=== PATIENT | female | born 1965 | race Caucasian/White ===

== ENCOUNTER 2023-02-28 10:45 | Outpatient (CLI) | payer MEDICAID, SELFPAY | END 2023-02-28 10:46 | disposition home or self-care (01) | LOC: RAD 10:48 → INJ CL 10:48 | PROVIDERS: Visit Provider Family Medicine | DX: M51.36 Other intervertebral disc degeneration, lumbar region (principal); M54.16 Radiculopathy, lumbar region | CPT/HCPCS: 64483; J1100; Q9966 ==

== ENCOUNTER 2023-05-30 09:42 | Outpatient (CLI) | payer MEDICAID, SELFPAY | END 2023-05-30 09:43 | disposition home or self-care (01) | PROVIDERS: Visit Provider Family Medicine | DX: M54.16 Radiculopathy, lumbar region (principal); M51.36 Other intervertebral disc degeneration, lumbar region | CPT/HCPCS: 64483; J1100; Q9966 ==

== ENCOUNTER 2024-03-05 10:25 | Outpatient (CLI) | payer MEDICAID, SELFPAY | END 2024-03-05 10:26 | disposition home or self-care (01) | LOC: INJ CL 10:27 | PROVIDERS: Visit Provider Family Medicine | DX: M54.16 Radiculopathy, lumbar region (principal); M51.36 Other intervertebral disc degeneration, lumbar region | CPT/HCPCS: 64483; J1100; Q9966 ==

== ENCOUNTER 2024-07-12 13:11 | Outpatient (CLI) | payer SELFPAY | END 2024-07-12 13:12 | disposition home or self-care (01) | LOC: INJ CL 13:12 | PROVIDERS: Visit Provider Family Medicine | DX: M54.16 Radiculopathy, lumbar region (principal) | CPT/HCPCS: 64483; J1100; Q9966 ==

== ENCOUNTER 2025-02-07 10:01 | Outpatient (CLI) | payer BC, SELFPAY ==
--- OUTSIDE RECORDS SUMMARY | 2021-10-07 11:19 | XMS_ITS | Continuity of Care Document ---
Author Organization [facility] sharon Address [address] [place] [phone] Phone Care Team Providers Care Jordan Man Name Role Phone Will Jorje ROD Unavailable Unavailabl e Allergies, Adverse Reactions, Alerts Substance Reaction Status Criticality No Known Allergies Active No Inform ation Medications Medication Instructions Dosage Effective Dates (start - stop) Status Comments tramadol 50 mg tablet take 1 - 2 Tablet by Oral route every 4 - 6 hours max 4/day 1-2 Tablet - Active gabapentin 600 mg tablet take 2 tablet by oral route 3 times every day 1200 MG - Active Procedures Procedure Date OFFICE/OUTPATIENT VISIT, EST OFFICE CONSULTATION Advance Directives Directive Yes / No Effective Date File Name No Information Encounters Encounter Description Practice Location Reason(s) For Visit Diagnoses Date Provider Providers Copied on Encounter [facility], [address] [place] [address], [id number] , [place] tel:[phone] [facility] No Information 2 Will Jorje. [address], [place], [id number] , [place]. tel:[phone] OFFICE/OUTPAT IENT VISIT, EST [facility], [address] [place] [address], [id number] , tel:[phone] [facility] Back Pain (chief complaint) Other intervertebral disc degeneration, thoracic regionRadiculopathy , lumbosacral regionPostlaminecto my syndrome, not elsewhere classifiedLong term (current) use of opiate analgesic 7 Néstor Dillon. [address], [place], [id number] , [place]. tel:[phone] Referring Provider: Royce Hoff [facility] [address] [place], [address]. tel:[phone] OFFICE CONSULTATION [facility], [address] [place], [place], [id number] , [place] tel:[phone] [facility] Back Pain (chief complaint) Other intervertebral disc degeneration, thoracic regionRadiculopathy , lumbosacral regionPostlaminecto my syndrome, not elsewhere classifiedLong term (current) use of opiate analgesic 7 Néstor Dillon. [address], [place], [id number] , [place]. tel:[phone] Referring Provider: Royce Hoff [facility] [address] [place], [address]. tel:[phone] Family History Family Member Type Diagnosis Age At Onset No Information Payers Payer name Insurance type Covered constitution party ID Authoriza tivon(s) [facility] [id number] Social History Type Description Quantity Date Captured Comments Sex Female Smoking Status No Information Chief Complaint And Reason For Visit No Information Reason For Referral Reason For Referral No Information History Of Present Illness Encounter Date Complaint History Of Prese nt Illness Back Pain (comments) Holley is he re for a followup after first consult. She is not currently prescribed opioid medications from [facility] but would like [facility] to take over opioid medication management. Medications provide 80% relief from pain. Stopped Meloxicam d/t SE such as drowsiness and dizziness. She is interested in pursuing right lumbar RFA. She completed PT at [facility] in [place]. She is also interested in completing another thoracic MELISSA. She previously completed a lumbar MELISSA and states no relief from it. She is willing to stop marijuana usage for [facility] to provide opioids. Back Pain Severity level i s 8-9. Duration: chronic. The problem is changing in character. It occurs persistently. Location of pain is middle back and lower back.The patient describes the pain as an ache and burning. Symptoms are aggravated by ascending stairs, bending, descending stairs, lifting, running, sitting, standing and twisting. Symptoms are relieved by exercise, heat, ice, lying down, stretching, rest and walking. Back Pain (comments) Holley is he re for consult regarding her back pain. In 2013 she had a work injury in which she was lifting something heavy and fell backwards. She had back surgery in 2014; helped pain in the first few months, but then came back. Low back is usually the worst pain. Gabapentin helps her sleep at night. Takes 0-2 [place] at night depending on pain level. Currently taking 5-6 Tramadol/day.Interventions tried:-epidural steroid injections: lumbar area- no significant pain relief. thoracic area-one relieved pain, another did not.-Flexerol-no significant pain relief. Back Pain Onset: sudden wi th injury. Severity level is 5-6. Duration: chronic. It occurs persistently. Location of pain is middle back.The patient describes the pain as an ache, burning and spasms. Symptoms are aggravated by ascending stairs, bending, changing positions, descending stairs, lifting, sitting, standing, twisting, all daily activities, lying in certain positions and housework. Symptoms are relieved by heat, ice, lying down, pain meds/drugs, stretching, rest and walking. Functional Status Date Functional Assessmen t No Information Instructions Date Instruction Additional Infor mation No Information Assessments Type Assessment Date No Information Patient Care Teams Name Effective Dates (start - stop) Status Members No Information
--- OUTSIDE RECORDS SUMMARY | 2024-12-27 11:46 | XMS_ITS | Encounter Summary ---
Author Organization [facility] Address [address] [place] [place] [address] Care Team Providers Care Client Relations Representative Name Role Phone Donna Lamas MD Primary Care Provider Unavailab Rosa Isela Brown-Luis Unavailable [phone] Rosa Isela Mae PA-C Unavailable Wilma Carrasco MD Unavailable Lynn Ho MD Unavailable [phone] Reason for Referral * Diagnostic Imaging CT Scan (Routine) - Closed Specialty Diagnoses / Procedures Referred By Contac t Referred To Contact Radiology. Diagnoses Pulmonary nodules Procedures CT Chest w/o Contrast Lynn Ho MD [address] [place] [address] Phone: tel: fax: [facility] [address] [place] [address] Phone: tel: fax: Referral ID Status Reason Start Date Expiration Date Visits Re quested Visits Authorized [id number] Closed 12/27/2024 12/27/2025 1 1 Reason for Visit * Diagnostic Imaging CT Scan (Routine) - Closed Specialty Diagnoses / Procedures Referred By Contac t Referred To Contact Radiology. Diagnoses Pulmonary nodules Procedures CT Chest w/o Contrast Lynn Ho MD [address] [place] [address] Phone: tel: fax: [facility] [address] [place] [address] Phone: tel: fax: Referral ID Status Reason Start Date Expiration Date Visits Re quested Visits Authorized [id number] Closed 12/27/2024 12/27/2025 1 1 Encounter Details Date Type Department Care Team (Latest Contact Info) Description 12/27/2024 11:46 AM CDT - 12/27/2024 11:59 PM CDT Hospital Encounter [facility] [address] [place] [id number] [facility] [address] [place] [address] Pulmonary nodules Discharge Disposition: Home or Self Care Social History Tobacco Use Types Packs/Day Years Used Date Smoking Tobacco: Every Day Cigarettes Smokeless Tobacco: Never Alcohol Use Standard Drinks/Week Comments Never 0 (1 standard drink = 0.6 oz pur e alcohol) PHQ-2 Answer Date Recorded PHQ-2 Score 0 12/16/2024 Food Insecurity Answer Date Recorded Within the past 12 months, d id you worry that your food would run out before you got money to buy more? No 12/16/2024 Within the past 12 months, d id the food you bought just not last and you didn t have money to get more? No 12/16/2024 Housing Stability Answer Date Recorded Do you have housing? (Housin g is defined as stable permanent housing and does not include staying outside in a car, in a tent, in an abandoned building, in an overnight assisted, or couch-surfing.) Yes 12/16/2024 Are you worried about losing your housing? No 12/16/2024 Financial Resource Strain Answer Date R ecorded Within the past 12 months, h ave you or your family members you live with been unable to get utilities (heat, electricity) when it was really needed? No 12/16/2024 Transportation Needs Answer Date Record ed Within the past 12 months, h as lack of transportation kept you from medical appointments, getting your medicines, non-medical meetings or appointments, work, or from getting things that you need? No 12/16/2024 Interpersonal Safety Answer Date Record ed Do you feel physically and e motionally safe where you currently live? Yes 12/16/2024 Within the past 12 months, h ave you been hit, slapped, kicked or otherwise physically hurt by someone? No 12/16/2024 Within the past 12 months, h ave you been humiliated or emotionally abused in other ways by your partner or ex-partner? 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 50 tablet 12/31/2024 HYDROcodone-acet aminophen (NORCO) 5-325 MG tablet Take 1 tablet by mouth. 11/18/2024 12/31/2024 oxyCODONE (ROXICODONE) 5 MG tabletIndication s:Malignant neoplasm of upper-inner quadrant of right breast in female, estrogen receptor positive (H) Take 1-2 tablets (5-10 mg) by mouth every 4 hours as needed for moderate to severe pain. 6 tablet 12/31/2024 01/01/2025 senna-docusate (SENOKOT-S/PERIC OLACE) 8.6-50 MG tabletIndication s:Malignant neoplasm of upper-inner quadrant of right breast in female, estrogen receptor positive (H) Take 1-2 tablets by mouth 2 times daily. 30 tablet 12/31/2024 01/15/2025 documented as of this encounter Plan of Treatment Upcoming Encounters Date Type Department Care Team (Late st Contact Info) Description 03/20/2025 2:30 PM CDT Ancillary Procedure [address] [place] [address] Wilma Carrasco MD [address] [place] [address] documented as of this encounter Procedures Procedure Name Priority Date/Time Associated Diagnosis Comments CT CHEST W/O CONTRAST STAT 12/27/2024 12:04 PM CDT Pulmonary nodules documented in this encounter Results * CT Chest w/o Contrast (12/27/2024 12:04 PM CDT) Anatomical Region Laterality Modality Chest, SUBRAD CT BODY, UMP CT CHEST, RAD CT Computed Tomography 12/27/2024 12:0 4 PM CDT Impressions 12/27/2024 12:19 PM CDT IMPRESSION: 1. Pulmonary nodules measuring up to 8 mm in the right middle lobe are indeterminate in the setting of breast cancer and underlying lung disease. Consider FDG PET/CT however given size less than 1 cm, they may be below PET resolution. 2. Small airway infection/inflammation involving the lingula. 3. Biopsy-proven right breast cancer. No pathologically enlarged thoracic lymph nodes. Narrative 12/27/2024 12:19 PM CDT EXAM: CT CHEST W/O CONTRAST LOCATION: DATE: 12/27/2024 INDICATION: Recently diagnosed right breast cancer. Pulmonary nodule on breast MRI COMPARISON: None. TECHNIQUE: CT chest without IV contrast. Multiplanar reformats were obtained. Dose reduction techniques were used. CONTRAST: None. FINDINGS: LUNGS AND PLEURA: Right middle lobe noncalcified 5 x 8 mm nodule (4/204). 4 x 6 mm right middle lobe medial juxtapleural nodule (image 180). 3 mm right middle lobe nodule (4/158). Adjacent right major fissural nodular thickening (4/163 and 169). Biapical scarring. Paraseptal predominant emphysema. Multiple foci of endobronchial mucous plugging. Lingular peribronchial groundglass, nodular opacities, and volume loss with appearance favoring small airway infection/inflammation. No pleural effusion or pneumothorax. Fat containing left Bochdalek hernia. MEDIASTINUM/AXILLAE: Normal heart size. No pericardial effusion. Normal caliber thoracic aorta. 1.6 cm mass in the medial right breast compatible with biopsy-proven malignancy. No pathologically enlarged thoracic lymph nodes. CORONARY ARTERY CALCIFICATION: None. UPPER ABDOMEN: No actionable findings. MUSCULOSKELETAL: Skeletal degenerative changes. No significant osseous abnormality. Procedure Note Ryan Morley MD - 12/27/2024 EXAM: CT CHEST W/O CONTRAST LOCATION: DATE: 12/27/2024 INDICATION: Recently diagnosed right breast cancer. Pulmonary nodule onbreast MRI COMPARISON: None. TECHNIQUE: CT chest without IV contrast. Multiplanar reformats wereobtained. Dose reduction techniques were used. CONTRAST: None. FINDINGS: LUNGS AND PLEURA: Right middle lobe noncalcified 5 x 8 mm nodule (4/204).4 x 6 mm right middle lobe medial juxtapleural nodule (image 180). 3 mmright middle lobe nodule (4/158). Adjacent right major fissural nodularthickening (4/163 and 169). Biapical scarring. Paraseptal predominant emphysema. Multiple foci ofendobronchial mucous plugging. Lingular peribronchial groundglass, nodularopacities, and volume loss with appearance favoring small airwayinfection/inflammation. No pleural effusion or pneumothorax. Fat containing left Bochdalekhernia. MEDIASTINUM/AXILLAE: Normal heart size. No pericardial effusion. Normalcaliber thoracic aorta. 1.6 cm mass in the medial right breast compatible with biopsy-provenmalignancy. No pathologically enlarged thoracic lymph nodes. CORONARY ARTERY CALCIFICATION: None. UPPER ABDOMEN: No actionable findings. MUSCULOSKELETAL: Skeletal degenerative changes. No significant osseousabnormality. IMPRESSION: 1. Pulmonary nodules measuring up to 8 mm in the right middle lobe areindeterminate in the setting of breast cancer and underlying lung disease.Consider FDG PET/CT however given size less than 1 cm, they may be belowPET resolution. 2. Small airway infection/inflammation involving the lingula. 3. Biopsy-proven right breast cancer. No pathologically enlarged thoraciclymph nodes. us Lynn Ho MD IMG CT ORDERABLES Final Resul t documented in this encounter Visit Diagnoses Diagnosis Pulmonary nodules Other nonspecific abnormal finding of lung field documented in this encounter Care Teams Client Relations Representative Relationship Specialty Start Date End Date Donna Lamas MD PCP - General Family Practice 01/25/12 Rosa Isela Mae PA-C [address] [address] Physician Seasonal Retail Merchandiser contact lens blocker and cutter 10/28/24 Rosa Isela Mae PA-C [address] [id number] Assigned OBGYN Provider 11/10/24 Wilma Carrasco MD [address] [place] [address] Physician Hematology & Oncology 11/27/24 Lynn Ho MD [address] [place] [address] Assigned Surgical Provider 12/11/24 documented as of this encounter
--- OUTSIDE RECORDS SUMMARY | 2024-12-30 09:58 | XMS_ITS | Encounter Summary ---
Author Organization [place] Address [address] [facility] [place] [address] Care Team Providers Care Tankage Supervisor Name Role Phone Donna Lamas MD Primary Care Provider Unavailab Rosa Isela Brown PA-C Unavailable [phone] Rosa Isela Mae PA-C Unavailable [phone] Wilma Carrasco MD Unavailable [phone] Lynn Ho MD Unavailable [phone] Reason for Referral * Diagnostic Imaging Ultrasound (Routine) - Pending Review Specialty Diagnoses / Procedures Referred By Armida hernandez Referred To Contact Radiology. Diagnoses Breast cancer, stage 1, estrogen receptor positive, right (H) Procedures US Breast Localizer Placement 1st Lesion Right Lynn Ho MD [address] [place] [address] Phone: tel: fax: Referral ID Status Reason Start Date Expiration Date V isits Requested Visits Authorized [id number] Pending Review 11/27/2024 11/27/2025 1 1 Reason for Visit * Diagnostic Imaging Ultrasound (Routine) - Pending Review Specialty Diagnoses / Procedures Referred By Armida hernandez Referred To Contact Radiology. Diagnoses Breast cancer, stage 1, estrogen receptor positive, right (H) Procedures US Breast Localizer Placement 1st Lesion Right Lynn Ho MD [address] [place] [address] Phone: tel: fax: Referral ID Status Reason Start Date Expiration Date V isits Requested Visits Authorized [id number] Pending Review 11/27/2024 11/27/2025 1 1 Encounter Details Date Type Department Care Team (Latest Contact Info) Description 12/30/2024 9:58 AM CDT Hospital Encounter [facility] [address] [place] [phone] [facility] [address] [place] [address] Breast cancer, stage 1, estrogen receptor positive, right (H) Discharge Disposition: Home or Self Care Social [...] Answer Date Recorded Do you have housing? (Ratnain g is defined as stable permanent housing and does not include staying outside in a car, in a tent, in an abandoned building, in an overnight long-term, or couch-surfing.) Yes 12/16/2024 Are you worried [...] motionally safe where you currently live? Yes 12/31/2024 Within the past 12 months, h ave you been hit, slapped, kicked or otherwise physically hurt by someone? No 12/31/2024 Within the past 12 months, h ave you been humiliated or emotionally abused in other ways by your partner or ex-partner? 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 Gender Identity Not on file Sexual Orientation [...] Description 03/20/2025 2:30 PM CDT Ancillary Procedure [address] [place] [address] Wilma Carrasco MD [address] [place] [address] documented as of this encounter Procedures Procedure Name Priority Date/Time Associated Diagnosis Comments US BREAST LOCALIZER PLACEMENT 1ST LESION RIGHT Routine 12/30/2024 10:41 AM CDT Breast cancer, stage 1, estrogen receptor positive, right (H) documented in this encounter Results * US Breast Localizer Placement 1st Lesion Right (12/30/2024 10:41 AM CDT) Anatomical Region Laterality Modality Breast Right Ultrasound Impressions 12/30/2024 10:50 AM CDT IMPRESSION: Successful placement of a localizer for operative guidance. ELYSIA ZACARIAS MD Narrative 12/30/2024 10:50 AM CDT RIGHT BREAST LOCALIZER PLACEMENT; POST LOCALIZER PLACEMENT RIGHT DIGITAL MAMMOGRAM; 12/30/2024 10:41 AM HISTORY: Right breast cancer. COMPARISON: Prior mammograms and ultrasound in October 2024. PROCEDURE: Informed consent was obtained prior to the procedure. The skin overlying the target lesion was marked, sterilized and anesthetized using approximately 3 cc 1% lidocaine. Using continuous ultrasound guidance, the localizer was deployed. Adequate placement was confirmed with imaging. There were no complications and no significant blood loss. Post procedure mammogram confirms satisfactory positioning of the localizer. The images were annotated and provided to the surgeon. Localizer ID: [id number] Procedure Note Elysia Zacarias MD - 12/30/2024 RIGHT BREAST LOCALIZER PLACEMENT; POST LOCALIZER PLACEMENT RIGHT DIGITAL MAMMOGRAM; 12/30/2024 10:41 AM HISTORY: Right breast cancer. COMPARISON: Prior mammograms and ultrasound in October 2024. PROCEDURE: Informed consent was obtained prior to the procedure. The skin overlying the target lesion was marked, sterilized and anesthetized using approximately 3 cc 1% lidocaine. Using continuous ultrasound guidance, the localizer was deployed. Adequate placement was confirmed with imaging. There were no complications and no significant blood loss. Post procedure mammogram confirms satisfactory positioning of the localizer. The images were annotated and provided to the surgeon. Localizer ID: [id number] IMPRESSION: Successful placement of a localizer for operative guidance. ELYSIA ZACARIAS MD us Lynn Ho MD IMG US ORDERABLES Final Resul t documented in this encounter Visit Diagnoses Diagnosis Breast cancer, stage 1, estrogen receptor positive, right (H) documented in this encounter Administered Medications Inactive Administered Medications - up to 3 most recent administrations Medication Order MAR Action Action Date Dose Rate Site lidocaine 1 % 5 mL 5 mL, Subcutaneous, ONCE, On Mon12/30/24 at 1000, For 1 doseIndications:Breast cancer, stage 1, estrogen receptor positive, right (H) $Given 12/30/2024 10:23 AM CDT 5 mLs documented in this encounter Care Teams Tankage Supervisor Relationship Specialty Start Date End Date Donna Lamas MD PCP - General Family Practice 01/25/12 Rosa Isela Mae PA-C [address] [facility] [address] [place] [address] Physician Emergency Veterinary Assistant tap out operator 10/28/24 Rosa Isela Mae PA-C [address] [facility] [address] [place] [address] Assigned OBGYN Provider 11/10/24 Wilma Carrasco MD [address] [place], [place] [address] Physician Hematology & Oncology 11/27/24 Lynn Ho MD [address] [place], [place] [id number] Assigned Surgical Provider 12/11/24 documented as of this encounter
--- OUTSIDE RECORDS SUMMARY | 2024-12-30 09:59 | XMS_ITS | Encounter Summary ---
Author Organization [place] Address [address] [facility] [place] [address] Care Team Providers Care Property Investor Name Role Phone Donna Lamas MD Primary Care Provider Unavailab Rosa Isela Brown PA-C Unavailable [phone] Rosa Isela Mae PA-C Unavailable [phone] Wilma Carrasco MD Unavailable [phone] Lynn Ho MD Unavailable [phone] Reason for Referral * Diagnostic Imaging Mammo (Routine) - Pending Review Specialty Diagnoses / Procedures Referred By Contac t Referred To Contact Radiology. Diagnoses Breast cancer, stage 1, estrogen receptor positive, right (H) Procedures MA Post Procedure Right Lynn Ho MD [address] [place] [address] Phone: tel: fax: Referral ID Status Reason Start Date Expiration Date V isits Requested Visits Authorized [id number] Pending Review 11/27/2024 11/27/2025 1 1 Reason for Visit * Diagnostic Imaging Mammo (Routine) - Pending Review Specialty Diagnoses / Procedures Referred By Contac t Referred To Contact Radiology. Diagnoses Breast cancer, stage 1, estrogen receptor positive, right (H) Procedures MA Post Procedure Right Lynn Ho MD [address] [facility] [place] [address] Phone: tel: fax: Referral ID Status Reason Start Date Expiration Date V isits Requested Visits Authorized [id number] Pending Review 11/27/2024 11/27/2025 1 1 Encounter Details Date Type Department Care Team (Latest Contact Info) Description 12/30/2024 9:59 AM CDT - 12/30/2024 11:59 PM CDT Hospital Encounter [facility] [address], [address] [place] [address] [facility] [address] [place] [address] Breast cancer, stage 1, estrogen receptor positive, [...] in an abandoned building, in an overnight fpc, or couch-surfing.) Yes 12/16/2024 Are you worried [...] on file 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[employer] Gender Identity Not on file Sexual Orientation [...] Description 03/20/2025 2:30 PM CDT Ancillary Procedure [address] [place] [address] Wilma Carrasco MD [address] [place] [address] documented as of this encounter Procedures Procedure Name Priority Date/Time Associated Diagnosis Comments MA POST PROCEDURE RIGHT Routine 12/30/2024 10:48 AM CDT Breast cancer, stage 1, estrogen receptor positive, right (H) documented in this encounter Results * MA Post Procedure Right (12/30/2024 10:48 AM CDT) Anatomical Region Laterality Modality Breast Right Mammography Impressions 12/30/2024 10:50 AM CDT IMPRESSION: Successful [...] and provided to the surgeon. Localizer ID: [id number] Procedure Note Elysia Zacarias MD - 12/30/2024 [...] and provided to the surgeon. Localizer ID: [id number] IMPRESSION: Successful placement of a localizer for operative guidance. ELYSIA ZACARIAS MD us Lynn Ho MD IMG MAMMOGRAPHY ORDERABLES Fi nal Result documented in this encounter Visit Diagnoses Diagnosis Breast cancer, stage 1, estrogen receptor positive, right (H) documented in this encounter Care Teams Property Investor Relationship Specialty Start Date End Date Donna Lamas MD PCP - General Family Practice 01/25/12 Rosa Isela Mae PA-C [address] [facility] [address] [place] [address] Boss gear inspector 10/28/24 Rosa Isela Mae PA-C [address] [facility] [address] [place] [address] Assigned OBGYN Provider 11/10/24 Wilma Carrasco MD [address] [place], [place] [id number] Physician Hematology & Oncology 11/27/24 [facility] [address] [place], [place] [address] Assigned Surgical Provider 12/11/24 documented as of this encounter
--- OUTSIDE RECORDS SUMMARY | 2024-12-31 05:29 | XMS_ITS | Encounter Summary ---
Author Organization [place] Address [address] [facility] [place] [address] Care Team Providers Care Crusher And Blender Operator Name Role Phone Donna Lamas MD Primary Care Provider Unavailab Rosa Isela Brown PA-C Unavailable [phone] Rosa Isela Mae PA-C Unavailable [phone] Wilma Carrasco MD Unavailable Lynn Ho MD Unavailable [phone] Reason for Visit * Auth/Cert Specialty Diagnoses / Procedures Referred By Armida hernandez Referred To Contact Surgery Diagnoses Breast cancer, stage 1, estrogen receptor positive, right (H) Breast cancer, stage 1, estrogen receptor positive, right (H) [C50.911, Z17.0] Procedures WA MASTECTOMY, PARTIAL WA BIOPSY/EXCISION LYMPH NODE OPEN SUPERFICIAL WA BIOPSY/EXCISION LYMPH NODE NEEDLE SUPERFICIAL WA BX/REMV,LYMPH NODE,DEEP CERV WA BX/REMV,LYMPH NODE,DEEP CERV/SCAL WA BX/REMV,LYMPH NODE,DEEP AXILL WA BX/REMV,LYMPH NODE,WATER SYSTEM OPERATOR MAMM WA OPEN BIOPSY/EXCISION INGUINOFEMORAL NODES LUMPECTOMY, BREAST, LOCALIZED USING RADIOFREQUENCY IDENTIFICATION,RIGHT SENTINEL LYMPH NODE BIOPSY [facility] [address] [place] [address] Phone: tel: fax: Referral ID Status Reason Start Date Expiration Date Visits Re quested Visits Authorized [id number] 1 1 Encounter Details Date Type Department Care Team (Latest Contact Info) Description 12/31/2024 5:29 AM CDT - 12/31/2024 12:34 PM CDT Hospital Encounter [facility] PreOP/PostOP [address] [place] [id number] [facility] [address] [place] [address] Malignant neoplasm of upper-inner quadrant of right breast in female, estrogen receptor positive (H) (Primary Dx) Discharge Disposition: Home or Self Care Social [...] in an abandoned building, in an overnight nursing home, or couch-surfing.) Yes 12/16/2024 Are you worried [...] on file 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 Gender Identity Not on file Sexual Orientation Not on file documented as of this encounter Last Filed Vital Signs Vital Sign Reading Time Taken Comments Blood Pressure 112/68 12/31/2024 12:30 PM CDT Pulse 60 12/31/2024 11:53 AM CDT Temperature 36.4 C (97.5 F) 12/31/2024 11:53 AM CDT Respiratory Rate 15 12/31/2024 11:30 AM CDT Oxygen Saturation 96% 12/31/2024 12:30 PM CDT Inhaled Oxygen Concentration - - Weight 58.7 kg (129 lb 6.4 oz) 12/31/2024 5:41 A M CDT Height 170.2 cm (5' 7) 12/31/2024 5:41 AM CDT Body Mass Index 20.27 12/31/2024 5:41 AM CDT documented in this encounter Discharge Instructions * Discharge Instructions* Vero Garcia RN - 12/31/2024 7:07 AM CDT HOME CARE FOLLOWING LUMPECTOMY Jere Baird, Brian Guerra, R. O???Estefany Thompson J. Shaheen APPOINTMENT WITH YOUR SURGEON: All patients are to schedule a post-op appointment with their general surgeon. Once you are home, call the office to schedule the appointment for 2-3 weeks from the date of your surgery. You may needto be seen sooner if you have a drain in place. Appointments to see your general surgeon at any of our locations can be made by calling: #[phone] You will receive a phone call from your surgeon with these results. You will be able to ask questions and receive more in-depth explanation at your post-op appointment. This appointment will also be when you discuss further evaluation, treatment, and referral to oncology and/or radiation oncology if this is necessary. Occasionally special testing must be done on the surgical specimen which may delay the posting of your final pathology report. You may call for your final pathology report after 1p.m. three working days after surgery to check on its status. SUPPORT: Wear a bra for support and comfort for 3-7 days, day and night. DRAIN: If you have a drain in place, you will need a separate appointment with a nurse in the office to have this removed. You will have a form to keep track of the output of your drain. When the output reaches a point where the total for a 24 hour period is less than 30cc???s, you are ready to have the drain removed. At that point you can call the office and talk to the nurse to arrange coming into theoffice to have this done. If you have more than one drain in place, they may not all be removed at the same time, as the outputs can be very different from each. The nurse will help you to manage this and help decide when the remaining drains will be taken out. INCISIONAL CARE: If you have a dressing in place, keep clean and dry for 48 hours; you may replace the gauze if it becomes soiled. After 48 hours you may remove the dressing and shower. Do not submerse incision in water for 1 week. If you have a Dermabond dressing (a type of skin glue), you may shower immediately. Sutures will absorb and do not need to be removed. If present, leave the steri-strips (white paper tapes) in place for 14 days after surgery. If present, leave Dermabond glue in place until it wears/flakes off. You may expect a small amount of drainage from your incision. A lump/ridge under the incision is normal and will gradually resolve. BATHING: You are allowed to bath (shallow water in a tub only) or shower 24-48 hours after your surgery. Mild soap is OK to use near these sites. When bathing, do not allow the incision or drain site to become submersed in water as this may increase the risk of infection. ACTIVITY: Cautiously resume exercise and strenuous activities such as jogging, tennis, aerobics, etc. Also, be careful of stretching activities with operative side for two weeks. If you had a ???sentinel node biopsy?? at the time of your surgery: You have no restrictions in addition to those noted above. If you had an ???axillary node dissection?? at the time of your surgery: You are recommended to restrict the activity of the arm on the side the dissection was done on. This means: no reaching overhead until cleared to do so by your surgeon, no carrying weight on that side greater than a couple pounds, no injections/vaccinations/ blood samples from that side, and no blood pressure measurements on that side. It is also recommended to elevate the arm on pillows several times a day to decrease/minimize swelling, and avoid sleeping on that arm. DIET: No restrictions. Increased fluid intake is recommended. While taking pain medications, increase dietary fiber or add a fiber supplementation like Metamucil or Citrucel to help prevent constipation - a possible side effect of pain medications. DISCOMFORT: Local anesthetic placed at surgery should provide relief for 4-8 hours. Begin taking pain pills before discomfort is severe. Take the pain medication with some food, when possible, to minimize side effects. Intermittent use of ice packs may help during the first 48 hours. Expect gradual improvement. RETURN APPOINTMENT: Schedule a follow-up visit 2-3 weeks post-op. Office CONTACT US IF THE FOLLOWING DEVELOPS: 1. A fever that is above 101?? 2. If there is a large amount of drainage, bleeding, or swelling. 3. Severe pain that is not relieved by your prescription. 4. Drainage that is thick, cloudy, yellow, green or white. 5. Any other questions not answered by ???Frequently Asked Questions?? sheet. FREQUENTLY ASKED QUESTIONS: Q: How should my incision look? A: Normally your incision will appear slightly swollen with light redness directly along the incision itself as it heals. It may feel like a bump or ridge as the healing/scarring happens, and over time (3-4 months) this bump or ridge feeling should slowly go away. In general, clear or pink watery drainage can be normal at first as your incision heals, but should decrease over time. Q: How do I know if my incision is infected? A: Look at your incision for signs of infection, like redness around the incision spreading to surrounding skin, or drainage of cloudy or foul-smelling drainage. If you feel warm, check your temperature to see if you are running a fever. If any of these things occur, please notify the nurse at our office. We may need you to come intothe office for an incision check. Q: How do I take care of my incision? A: If you have a dressing in place - Starting the day after surgery, replace the dressing 1-2 timesa day until there is no further drainage from the incision. At that time, a dressing is no longer needed. Try to minimize tape on the skin if irritation is occurring at the tape sites. If you have significant irritation from tape on the skin, please call the office to discuss other method of dressin g your incision. Small pieces of tape called ???steri-strips?? may be present directly overlying your incision; these may be removed 10 days after surgery unless otherwise specified by your surgeon. If these tapes start to loosen at the ends, you may trim them back until they fall off or are removed. A: If you had ???Dermabond?? tissue glue used as a dressing (this causes your incision to look shiny with a clear covering over it) - This type of dressing wears off with time and does not require more dressings over the top unless it is draining around the glue as it wears off. Do not apply ointments or lotions over the incisions until the glue has completely worn off. Q: There is a piece of tape or a sticky ???lead?? still on my skin. Can I remove this? A: Sometimes the sticky ???leads?? used for monitoring during surgery or for evaluation in the emergency department are not all removed while you are in the hospital. These sometimes have a tab or metal dot on them. You can easily remove these on your own, like taking off a band-aid. If there is agel substance under the ???lead?? , simply wipe/clean it off with a washcloth or paper towel. Q: What can I do to minimize constipation (very hard stools, or lack of stools)? A: Stay well hydrated. Increase your dietary fiber intake or take a fiber supplement -with plenty of water. Walk around frequently. You may consider an ojht-ahp-oassxon stool-softener. Your Pharmacist can assist you with choosing one that is stocked at your pharmacy. Constipation is also one of themost common side effects of pain medication. If you are using pain medication, be pro-active and try to PREVENT problems with constipation by taking the steps above BEFORE constipation becomes a problem. Q: What do I do if I need more pain medications? A: Call the office to receive refills. Be aware that certain pain meds cannot be called into a pharmacy and actually require a paper prescription. A change may be made in your pain med as you progress thru your recovery period or if you have side effects to certain meds. --Pain meds are NOT refilled after 5pm on weekdays, and NOT AT ALL on the weekends, so please look ahead to prevent problems. Q: Why am I having a hard time sleeping now that I am at home? A: Many medications you receive while you are in the hospital can impact your sleep for a number ofdays after your surgery/hospitalization. Decreased level of activity and naps during the day may also make sleeping at night difficult. Try to minimize day-time naps, and get up frequently during theday to walk around your home during your recovery time. Sleep aides may be of some help, but are not recommended for long-term use. Q: I am having some back discomfort. What should I do? A: This may be related to certain positioning that was required for your surgery, extended periods of time in bed, or other changes in your overall activity level. You may try ice, heat, acetaminophen, or ibuprofen to treat this temporarily. Note that many pain medications have acetaminophen in them and would state this on the prescription bottle. Be sure not to exceed the maximum of 4000mg per day of acetaminophen. If the pain you are having does not resolve, is severe, or is a flare of back pain you have had on other occasions prior to surgery, please contact your primary physician for further recommendations or for an appointment to be examined at their office. Q: Why am I having headaches? A: Headaches can be caused by many things: caffeine withdrawal, use of pain meds, dehydration, highblood pressure, lack of sleep, over-activity/exhaustion, flare-up of usual migraine headaches. If you feel this is related to muscle tension (a band-like feeling around the head, or a pressure at thelow-back of the head) you may try ice or heat to this area. You may need to drink more fluids (try electrolyte drink like Gatorade), rest, or take your usual migraine medications. If your headaches do not resolve, worsen, are accompanied by other symptoms, or if your blood pressure is high, please call your primary physician for recommendation and/or examination. Q: I am unable to urinate. What do I do? A: A small percentage of people can have difficulty urinating initially after surgery. This includes being able to urinate only a very small amount at a time and feeling discomfort or pressure in thevery low abdomen. This is called ???urinary retention?? , and is actually an urgent situation. Proceed to your nearest Emergency department for evaluation (not an Urgent Care Center). Sometimes the bladder does not work correctly after certain medications you receive during surgery, or related to certain procedures. You may need to have a catheter placed until your bladder recovers. When planningto go to an Emergency department, it may help to call the ER to let them know you are coming in for this problem after a surgery. This may help you get in quicker to be evaluated. If you have symptoms of a urinary tract infection, please contact your primary physician for the proper evaluation and treatment. If you have other questions, please call the office Monday thru Monday between 8am and 4:30pm to discuss with the nurse or physician assistant property manager. # There is a surgeon ROAD REPAIRER on weekday evenings and over the weekend in case of urgent need only, and may be contacted at the same number. If you are having an emergency, call 911 or proceed to your nearest emergency department. You received Oxycodone 5mg at 10:45am. Next dose of Oxycodone after 2:45pm if needed. You received Tylenol 650mg at 10:45am. Next dose of Tylenol after 2:45pm if needed. Maximum acetaminophen (Tylenol) dose from all sources should not exceed 4 grams (4000 mg) per day. You received Toradol, an IV form of Ibuprofen (Motrin) at 9am. Do not take any Ibuprofen products until 3pm. * Attachments The following attachments cannot be sent through Care Everywhere. * (s) After Anesthesia (Sleep Medicine) (Surinamese) documented in this encounter Medications at Time of Discharge acetaminophen (TYLENOL) 325 MG tabletIndication s:Malignant neoplasm of upper-inner quadrant of right breast in female, estrogen receptor positive (H) Take 2 tablets (650 mg) by mouth every 4 hours as needed for mild pain. 50 tablet 12/31/2024 oxyCODONE (ROXICODONE) 5 MG tabletIndication s:Malignant [...] 12/31/2024 01/15/2025 documented as of this encounter H&P Notes * Lynn Ho MD - 12/31/2024 7:04 AM CDT I have reviewed the surgical (or preoperative) H&P that is linked to this encounter, and examined the patient. There are no significant changes Clinical Conditions Present on Arrival: Clinically Significant Risk Factors Present on Admission Source Note - Marcia Bridges APRN FIRE PILOT - 12/16/2024 4:30 PM CDT Preoperative Evaluation [address] [facility] [id number] Primary Provider: Donna Lamas MD (Inactive) Pre-op Performing Provider: Marcia Bridges APRN CNP Dec 16, 2024 12/16/2024 Surgical Information What procedure is being done? pre op Facility or Hospital where procedure/surgery will be performed: [facility] Who is doing the procedure / surgery? dr ross Date of surgery / procedure: december 31 Time of surgery / procedure: 5 Where do you plan to recover after surgery? at home with family Fax number for surgical facility: Note does not need to be faxed, will be available electronically in [employer]. Assessment & Plan The proposed surgical procedure is considered LOW risk. Preop general physical exam Malignant neoplasm of upper-inner quadrant of right breast in female, estrogen receptor positive (H) Kasie is a 59 year old female with right breast invasive ductal carcinoma, grade 2, ER +, WA +, measuring 2 cm (mammography) at 3:00 and 4 cm from the nipple. A lymph node that was suspicious was biopsied and was benign. Discussed - EKG 12-lead complete w/read - Clinics - CBC with platelets; Future - No identified additional risk factors other than previously addressed Preoperative Medication Instructions Antiplatelet or Anticoagulation Medication Instructions - We reviewed the medication list and the patient is not on an antiplatelet or anticoagulation medications. Additional Medication Instructions - Herbal medications and vitamins: DO NOT TAKE 14 days prior to surgery. - Opioids: Continue without modification. [id number]} - diclofenac (Voltaren): DO NOT TAKE for 3 days for high bleeding risk or PRN use. - ibuprofen (Advil, Motrin): DO NOT TAKE 1 day before surgery. - naproxen (Aleve, Naprosyn): DO NOT TAKE 4 days before surgery. Recommendation Approval given to proceed with proposed procedure, without further diagnostic evaluation. Subjective Kasie is a 59 year old, presenting for the following: Pre-Op Exam (Rt breast) HPI: Kasie is a 59 year old female with right breast invasive ductal carcinoma, grade 2, ER +, WA +, measuring 2 cm (mammography) at 3:00 and 4 cm from the nipple. A lymph node that was suspiciouswas biopsied and was benign. Patient denies any fevers night sweats or chills, patient denies any upper respiratory infections. Patient denies any change to the lump on her breast or note any extra lymph nodes involved, no drainage to her nipple. Reviewed the instructions with pt to be prepared to share her doctor's clinic name and phone number, her medical surgical and anesthesia history, a list of allergies and sensitivities, a list of medicines including herbal treatments and bcez-mtt-tlhnkah medications. Advised patient to inform insurance company that she is having surgery and to call the clinic if there is any change in her health such as a scratch or scrape near the surgical site or any signs of a cold such as sore throat, runny nose, cough, rash, fever. Provided patient with the eating and drinking guidelines and instructed patient to eat and drink asnormal until 8 hours before she arrives for surgery and after that no food or milk. Instructed patient that she can drink clear water liquids until 2 hours before she arrives. Explained that clear liquids are those you can see through like water Gatorade and propel and includes black coffee and teaas long as there is no cream or milk in it. Instructed patient to not drink alcohol for 24 hours before she arrives which includes drinks that contain THC. Instructed patient to shower/bathe the night before and the morning of surgery and to not smoke or vape the morning of surgery. On the day of surgery instructed patient to bring photo ID and insurance card and a copy of her healthcare directive if she has 1 and to bring cases for glasses and hearing aids because she cannot wear contacts during surgery. Instructed patient to remove any jewelry including body piercings and leave jewelry and valuables at home. 12/16/2024 Pre-Op Questionnaire Have you ever had a heart attack or stroke? No Have you ever had surgery on your heart or blood vessels, such as a stent placement, a coronary artery bypass, or surgery on an artery in your head, neck, heart, or legs? No Do you have chest pain with activity? No Do you have a history of heart failure? No Do you currently have a cold, bronchitis or symptoms of other infection? No Do you have a cough, shortness of breath, or wheezing? No Do you or anyone in your family have previous history of blood clots? No Do you or does anyone in your family have a serious bleeding problem such as prolonged bleeding following surgeries or cuts? No Have you ever had problems with anemia or been told to take iron pills? No Have you had any abnormal blood loss such as black, tarry or bloody stools, or abnormal vaginal bleeding? No Have you ever had a blood transfusion? No Are you willing to have a blood transfusion if it is medically needed before, during, or after yoursurgery? Yes Have you or any of your relatives ever had problems with anesthesia? No Do you have sleep apnea, excessive snoring or daytime drowsiness? No Do you have any artifical heart valves or other implanted medical devices like a pacemaker, defibrillator, or continuous glucose monitor? No Do you have artificial joints? No Are you allergic to latex? No Advance Care Planning Discussed advance care planning with patient; however, patient declined at this time. Preoperative Review of ACCIDENT EXAMINER ACCIDENT EXAMINER reviewed - no record of controlled substances prescribed. Patient Active Problem List Diagnosis Date Noted Malignant neoplasm of upper-inner quadrant of right breast in female, estrogen receptor positive (H) 11/27/2024 Priority: Medium No past medical history on file. Past Surgical History: Procedure Laterality Date BACK SURGERY Current Outpatient Medications Medication Sig Dispense Refill traMADol (ULTRAM) 50 MG tablet (Patient not taking: Reported on 12/16/2024) Allergies Allergen Reactions Indomethacin GI Disturbance Social History Tobacco Use Smoking status: Every Day Types: Cigarettes Smokeless tobacco: Never Substance Use Topics Alcohol use: Never Family History Problem Relation Age of Onset Ovarian Cancer Mother 64 Breast Cancer No family hx of History Drug Use Unknown Review of Systems Constitutional, neuro, ENT, endocrine, pulmonary, cardiac, gastrointestinal, genitourinary, musculoskeletal, integument and psychiatric systems are negative, except as otherwise noted. Objective BP 105/75 (BP Location: Right arm, Patient Position: Sitting, Cuff Size: Adult Regular) Pulse 82 Temp 97.5 ??F (36.4 ??C) (Oral) Resp 16 Ht 1.702 m (5' 7) Wt 58.8 kg (129 lb 11.2 oz) LMP(LMP Unknown) SpO2 97% BMI 20.31 kg/m?? Estimated body mass index is 20.31 kg/m?? as calculated from the following: Height as of this encounter: 1.702 m (5' 7). Weight as of this encounter: 58.8 kg (129 lb 11.2 oz). Physical Exam GENERAL: alert and no distress HENT: ear canals and TM's normal, nose and mouth without ulcers or lesions NECK: no adenopathy, no asymmetry, masses, or scars RESP: lungs clear to auscultation - no rales, rhonchi or wheezes CV: regular rate and rhythm, normal S1 S2, no S3 or S4, no murmur, click or rub, no peripheral edema ABDOMEN: soft, nontender, no hepatosplenomegaly, no masses and bowel sounds normal MS: no gross musculoskeletal defects noted, no edema SKIN: no suspicious lesions or rashes NEURO: Normal strength and tone, mentation intact and speech normal PSYCH: mentation appears normal and affect flat No results for input(s): HGB, PLT, INR, NA, POTASSIUM, CR, A1C in the last 8760 hours. Diagnostics CBC EKG: appears normal, NSR, Normal Sinus Rhythm, normal axis, normal intervals, no acute ST/T changesc/w ischemia, no LVH by voltage criteria, there are no prior tracings available Revised Cardiac Risk Index (RCRI) The patient has the following serious cardiovascular risks for perioperative complications: - No serious cardiac risks = 0 points RCRI Interpretation: 0 points: Class I (very low risk - 0.4% complication rate) Signed Electronically by: Marcia Bridges APRN CNP A copy of this evaluation report is provided to the requesting physician. documented in this encounter Miscellaneous Notes * Op Note - Lynn Ho MD - 12/31/2024 9:35 AM CDT General Surgery Operative Note Pre-operative diagnosis: Breast cancer, stage 1, estrogen receptor positive, right (H) [C50.911, Z17.0] Post-operative diagnosis: Same Procedure: Right breast radiofrequency tag localized lumpectomy right axillary sentinel lymph node biopsy Surgeon: Lynn Ho MD Patrol Commander(s): Ranjana Villalobos PA-C The Physician Patrol Commander was medically necessary for their expertise in prepping, suctioning, suturing and retraction. Anesthesia: general Estimated blood loss: Complications: 50 cc none Specimens: ID Type Source Tests Collected by Time Destination 1 : RIGHT BREAST LUMPECTOMY Lumpectomy Breast, Right SURGICAL PATHOLOGY EXAM Lynn Ho MD 12/31/2024 8:12 AM 2 : Right sentinel lymph node #1 & #2 Tissue Lymph Node(s), [place] SURGICAL PATHOLOGY EXAM Lynn Ho MD 12/31/2024 8:23 AM 3 : Right sentinel lymph node #3 Tissue Lymph Node(s), [place] SURGICAL PATHOLOGY EXAM Jacqueline Ho MD 12/31/2024 8:35 AM 4 : RIGHT BREAST LUMPECTOMY Lumpectomy Breast, Right SURGICAL PATHOLOGY EXAM Lynn Ho MD 12/31/2024 8:46 AM 5 : RIGHT BREAST LUMPECTOMY Lumpectomy Breast, Right SURGICAL PATHOLOGY EXAM Lynn Ho MD 12/31/2024 8:48 AM Indications for operation: This is a 59 year old female who presented with a breast mass to clinic which was found to be a 2 cm breast cancer. We discussed indications for surgery and she opted to proceed with lumpectomy with sentinel node biopsy. Description of procedure: After induction of anesthesia, the right arm, breast, and chest were prepped and draped in standardfashion. The lumpectomy was performed by creating an elliptical 4x2 cm incision over the breast in the 3 o'clock position 4 cm from the nipple. Skin flaps were raised circumferentially. The mass and surrounding tissue were excised using the tag placed by radiology to localize the area. The specimen was inked for margins on the back table then specimen was xray'd to confirm specimen contained clip and tag.The breast radiologist confirmed the specimen radiograph contained the tag and clip. The lumpectomy specimen was then sent to pathology for gross evaluation. SLN: Prior to prep, I had injected methylene blue dye into the tissue below the areola. Using a hand-held gamma probe, a hot spot was identified in the axilla. An incision was created directly overlying this area. Dissection was carried through the clavipectoral fascia. The sentinel node was identified by its blue color and high radioactivity counts and excised from the superiomedial axilla usingelectrocautery. A total of 2 additional Level I axillary sentinel nodes were removed and submitted to pathology for permanent evaluation. The highest node, ex vivo, had a radioactivity count of 2,400. The other node(s) had counts of 2,200 and 1,400. The axilla then had radioactivity counts less than 10% of the sentinel node. Pathology had then reviewed the gross specimen for margins which showed a 1 mm superior margin and 2 mm lateral margin. Additional superior and lateral margins were taken and sent to pathology for permanent evaluation. 0.5% marcaine plain was injected along the incision and subcutaneous tissue. Clips were placed in the 4 quadrants of the lumpectomy cavity. Hemostasis was achieved with cautery. Powder surgical was placed in both incisions. The incisions were anesthetized with 0.5% marcaine. Both wounds were closed with a 3-0 interrupted deep and 4-0 Vicryl subcuticular closure in a running fashion. Dermabond was applied. At the end of the operation, all sponge, instrument, and needle counts were correct. [place] Node Biopsy for Breast Cancer - Right Operation performed with curative intent Yes Tracer(s) used to identify sentinel nodes in the upfront surgery (non- neoadjuvant) setting Dye and Radioactive tracer Tracer(s) used to identify sentinel nodes in the neoadjuvant setting N/A All nodes (colored or non-colored) present at the end of a dye-filled lymphatic channel were removed Yes All significantly radioactive nodes were removed Yes All palpably suspicious nodes were removed N/A Biopsy-proven positive nodes marked with clips prior to chemotherapy were identified and removed N/A This procedure was not performed to treat breast cancer through axillary lymph node dissection Lynn Ho MD * Brief Op Note - Lynn Ho MD - 12/31/2024 9:03 AM CDT [facility] Brief Operative Note Pre-operative diagnosis: Breast cancer, stage 1, estrogen receptor positive, right (H) [C50.911, Z17.0] Post-operative diagnosis Same as pre-operative diagnosis Procedure: LUMPECTOMY, BREAST, LOCALIZED USING RADIOFREQUENCY IDENTIFICATION,RIGHT SENTINEL LYMPH NODE BIOPSY, Right - Breast Surgeon: Surgeons and Role: * Lynn Ho MD - Primary * Ranjana Villalobos PA-C - Assisting Anesthesia: General Estimated Blood Loss: 50 ml Drains: None Specimens: ID Type Source Tests Collected by Time Destination 1 : RIGHT BREAST LUMPECTOMY Lumpectomy Breast, Right SURGICAL PATHOLOGY EXAM Lynn Ho MD 12/31/2024 8:12 AM 2 : Right sentinel lymph node #1 & #2 Tissue Lymph Node(s), [place] SURGICAL PATHOLOGY EXAM Lynn Ho MD 12/31/2024 8:23 AM 3 : Right sentinel lymph node #3 Tissue Lymph Node(s), [place] SURGICAL PATHOLOGY EXAM Jacqueline Ho MD 12/31/2024 8:35 AM 4 : RIGHT BREAST LUMPECTOMY Lumpectomy Breast, Right SURGICAL PATHOLOGY EXAM Lynn Ho MD 12/31/2024 8:46 AM 5 : RIGHT BREAST LUMPECTOMY Lumpectomy Breast, Right SURGICAL PATHOLOGY EXAM Lynn Ho MD 12/31/2024 8:48 AM Findings: 2.3 cm breast mass excised with superior margin of 1mm and lateral of 2 mm. Those marginswere re-excised. Three sentinel nodes found with readings of 2,400, 2,200 and 1,400. Complications: None. Implants: * No implants in log * documented in this encounter Plan of Treatment Upcoming Encounters Date Type Department Care Team (Late st Contact Info) Description 03/20/2025 2:30 PM CDT Ancillary Procedure [address] [place] [address] Wilma Carrasco MD [address] [place] [address] documented as of this encounter Procedures Procedure Name Priority Date/Time Associated Diagnosis Comments ONCOTYPEDX BREAST STAT 12/31/2024 8:1 2 AM CDT SURGICAL PATHOLOGY EXAM STAT 12/31/2024 8:12 AM CDT MASTECTOMY, PARTIAL 12/31/2024 7:33 AM CDT Breast cancer, stage 1, estrogen receptor positive, right (H) Special Needs 120mins per terrence documented in this encounter Results * OncotypeDx Breast (12/31/2024 8:12 AM CDT) Specimen Status See Scanned Result 01/17/2025 9:00 AM CDT [facility] Lumpectomy RIGHT BREAST STRUCTURE / Unknown 12/31/2024 8:12 AM CDT 01/08/2025 4:17 PM CDT us Lynn Ho MD LAB - VAMSHI AP Final Result [facility] [address] [place] [id number], [facility] [phone] * (ABNORMAL) Surgical Pathology Exam (12/31/2024 8:12 AM CDT) Case Report Surgical Pathology Report Case: [id number] Authorizing Provider: Lynn Ho MD Collected: 12/31/2024 08:12 AM Ordering Location: [facility] Received: 12/31/2024 08:21 AM Main OR Pathologist: Sanam Mccray MD Intraop: Leda Rogers MD Specimens: A) - Breast, Right, RIGHT BREAST LUMPECTOMY B) - Lymph Node(s), [place], Right sentinel lymph node #1 & #2 C) - Lymph Node(s), [place], Right sentinel lymph node #3 D) - Breast, Right, RIGHT BREAST LUMPECTOMY E) - Breast, Right, RIGHT BREAST LUMPECTOMY 01/02/2025 4:00 PM CDT LABORATORY Final Diagnosis A. Breast, right, lumpectomy: -INVASIVE DUCTAL CARCINOMA with micropapillary features, grade 2, size 23 mm. 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 -Focal area suspicious for lymph-vascular invasion. -Margins are uninvolved by invasive and in situ carcinoma: -Closest margin to invasive carcinoma is posterior at 1 mm. - All margins are greater than 10 mm from DCIS. -See tumor synoptic report. B. Lymph node, right sentinel #1 and #2, excision: - Three lymph nodes; negative for metastatic carcinoma (0/3). C. Lymph node, right sentinel #3, excision: - Three lymph nodes; negative for metastatic carcinoma (0/3). D. Breast, right, new superior margin, excision: - Breast tissue; negative for carcinoma. E. Breast, right, new lateral margin, excision: - Breast tissue; negative for carcinoma. 01/02/2025 4:00 PM CDT LABORATORY at 1600 CDT Synoptic Checklist INVASIVE CARCINOMA OF THE BREAST: Resection INVASIVE CARCINOMA OF THE BREAST: RESECTION - All Specimens 8th Edition - Protocol posted: 02/07/2024 SPECIMEN Procedure: Excision (less than total mastectomy) Specimen Laterality: Right TUMOR Histologic Type: Invasive carcinoma of no special type (ductal) Histologic Grade (Katty Histologic Score): Glandular (Acinar) / Tubular Differentiation: Score 3 Nuclear Pleomorphism: Score 3 Mitotic Rate: Score 1 Overall Grade: Grade 2 (scores of 6 or 7) Tumor Size: Greatest dimension of largest invasive focus (Millimeters): 23 mm Tumor Focality: Single focus of invasive carcinoma Ductal Carcinoma In Situ (DCIS): Present : Negative for extensive intraductal component (EIC) Size (Extent) of DCIS: Estimated size (extent) of DCIS is at least (Millimeters): 10 mm Architectural Patterns: Solid Nuclear Grade: Grade II (intermediate) Necrosis: Not identified Lobular Carcinoma In Situ (LCIS): Not identified Lymphatic and / or Vascular Invasion: Cannot be determined: Suspicious Dermal Lymphatic and / or Vascular Invasion: Not identified Microcalcificatio ns: Not identified Treatment Effect in the Breast: No known presurgical therapy MARGINS Margin Status for Invasive Carcinoma: All margins negative for invasive carcinoma Distance from Invasive Carcinoma to Closest Margin: 1 mm Closest Margin(s) to Invasive Carcinoma: Posterior Distance from Invasive Carcinoma to Anterior Margin: 6 mm Distance from Invasive Carcinoma to Superior Margin: Greater than: 10 mm Distance from Invasive Carcinoma to Inferior Margin: Greater than: 10 mm Distance from Invasive Carcinoma to Medial Margin: Greater than: 10 mm Distance from Invasive Carcinoma to Lateral Margin: Greater than: 10 mm Margin Status for DCIS: All margins negative for DCIS Distance from DCIS to Closest Margin: Greater than: 10 mm Closest Margin(s) to DCIS: All margins are greater than 10 mm from DCIS. REGIONAL LYMPH NODES Regional Lymph Node Status: : All regional lymph nodes negative for tumor Total Number of Lymph Nodes Examined (sentinel and non-sentinel): 6 Number of [place] Nodes Examined: 6 pTNM CLASSIFICATION (AJCC 8th Edition) Reporting of pT, pN, and (when applicable) pM categories is based on information available to the pathologist at the time the report is issued. As per the AJCC (Chapter 1, 8th Ed.) it is the managing physician's responsibility to establish the final pathologic stage based upon all pertinent information, including but potentially not limited to this pathology report. pT Category: pT2 pN Category: pN0 SPECIAL STUDIES Estrogen Receptor (ER) Status: Positive (greater than 10% of cells demonstrate nuclear positivity) Percentage of Cells with Nuclear Positivity: 91-100% Progesterone Receptor (PgR) Status: Positive Percentage of Cells with Nuclear Positivity: 91-100% HER2 (by immunohistochemist ry): Negative (Score 1+) Testing Performed on 01/02/2025 4:00 PM CDT LABORATORY Clinical Information Procedure: LUMPECTOMY, BREAST, LOCALIZED USING RADIOFREQUENCY IDENTIFICATION,RIG HT SENTINEL LYMPH NODE BIOPSY - Right Pre-op Diagnosis: Breast cancer, stage 1, estrogen receptor positive, right (H) [C50.911, Z17.0] Post-op Diagnosis: C50.911, Z17.0 - Breast cancer, stage 1, estrogen receptor positive, right (H) [ICD-10-CM] 01/02/2025 4:00 PM CDT LABORATORY Intraoperative Consultation A(1). Breast, Right, RIGHT BREAST LUMPECTOMY: A. Breast, right, lumpectomy: - 2.3 cm tumor at 1 mm from superior, 2 mm from lateral and posterior, and 3 mm from anterior margin (gross examination only). Leda Rogers MD on 12/31/2024 at 8:32 AM 01/02/2025 4:00 PM CDT LABORATORY at 0834 CDT Gross Description A(1). Breast, Right, RIGHT BREAST LUMPECTOMY: The specimen is received fresh for intraoperative gross for margin analysis labeled with the patient's name, medical record number and other identifying information and designated right breast lumpectomy. It consists of 34.3 g, 7.0 cm (medial to lateral) by 6.3 cm (superior to inferior) by 2.5 cm (anterior to posterior) right lumpectomy specimen received previously inked and oriented by the surgeon with an overlying 2.5 x 1.0 cm elliptical portion of pale-wolff, wrinkled skin on the anterior surface. Red - Superior Blue - Inferior Green - Anterior Black - Posterior Yellow - Medial [place] - Lateral The specimen is sectioned from lateral to medial into 10 slices to reveal within slice 3-6 is a 2.3 x 1.6 x 1.5 cm pale-wolff indurated mass with an associated biopsy cavity containing a coil shaped clip and RFID tag. The mass is located from the margins as follows: 0.1 cm from the superior margin 0.2 cm from the lateral margin 0.2 cm from the posterior margin 0.3 cm from the anterior margin 1.0 cm from the overlying skin 1.0 cm from the inferior margin 1.0 cm to the medial margin The remainder of the specimen displays approximately 90% yellow-wolff, lobulated adipose tissue admixed with 10% wolff-white stromal tissue. The mass is submitted entirely and sequentially. The remainder of the specimen is representatively sampled as follows (reference specimen diagragm): A1-guest service representative sections of slice 1, lateral end-perpendicular sections A2-A4-slice 2, trisected A5-guest service representative section of slice 3 to include mass A6-A8-slice 4 to include mass, trisected L2-I55-wzulc 5 to include mass, quadrisected H35-Y68-rtmtl 6 to include mass, trisected X53-L25-bzdveekndu tive sections of slice 7 N66-wplnokldhgxbvt section of slice 8 A19- guest service representative sections of slice 10, medial end - perpendicular sections Per EPIC, the radiographic findings are as follows: Imaging reviewed: MRI/Ultrasound Findings: right breast, 3 o'clock position, 4 cm from nipple, 2.0 cm size Expected Clip/Marker: Coil shaped clip Time collected: 811 Time in formalin: 833 B(2). Lymph Node(s), [place], Right sentinel lymph node #1 & #2: The specimen is received in formalin, labeled with the patient's name, medical record number and other identifying information designated right sentinel lymph node #1 and #2. It consists of a 4.5 x 3.3 x 1.2 cm portion of yellow-wolff, lobulated adipose tissue. Isolated from the adipose tissue are 3, 0.5-1.6 x 0.8 x 0.5 cm pale-wolff possible lymph nodes with blue sentinel dye which are submitted entirely as follows: B1-2 possible nodes (1 uninked-intact/1 inked blue-bisected) B2-1 possible lymph node, bisected) Time collected: 822 Time in formalin: 924 (specimen received within pathology lab at 924) C(3). Lymph Node(s), [place], Right sentinel lymph node #3: The specimen is received in formalin, labeled with the patient's name, medical record number and other identifying information designated right sentinel lymph node #3. It consists of a 4.2 x 3.0 x 1.2 cm portion of shaggy yellow-wolff, lobulated adipose tissue. Isolated from the adipose tissue are 3, 0.3-0.6 cm pale-wolff possible lymph nodes which are left intact and submitted entirely in 1 cassette. Time collected: 834 Time in formalin: 0925 D(4). Breast, Right, RIGHT BREAST LUMPECTOMY: The specimen is received in formalin, labeled with the patient's name, medical record number and other identifying information designated right breast lumpectomy new superior margin, ink bill new margin. It consists of a 4.7 g, 4.0 x 3.1 x 1.3 cm portion of yellow-wolff, lobulated adipose tissue received with red ink on one aspect of the specimen (inked by surgeon). The opposing aspect the specimen is inked black (inked by Grosser). The specimen is sectioned, displays approximately 95% yellow-wolff, lobulated adipose tissue admixed with 5% wolff-white stromal tissue. No obvious possible mass or nodularities are grossly identified. The specimen is submitted entirely and sequentially in 6 cassettes. Red-new margin aspect of specimen (inked by surgeon) Black-opposing aspect of specimen (inked by Grosser) Time collected: 845 Time in formalin: 0925 E(5). Breast, Right, RIGHT BREAST LUMPECTOMY: The specimen is received in formalin, labeled with the patient's name, medical record number and other identifying information designated Right breast lumpectomy, new lateral margin, ink bill new margin. It consists of a 3.0 g, 3.4 x 2.4 x 1.1 cm portion of yellow-wolff, lobulated adipose tissue received with orange ink on one aspect of the specimen (inked by surgeon). The opposing aspect of the specimen is inked black (inked by Grosser). The specimen is sectioned, displays approximately 80% yellow-wolff, lobulated adipose tissue admixed with 20% wolff-white stromal tissue with multiple, multifocal 0.2-0.4 cm cysts. No obvious possible mass or nodularities are grossly identified. The specimen is submitted entirely and sequentially in 5 cassettes. [place]-new margin aspect of specimen (inked by surgeon) Black-opposing aspect of specimen (inked by Grosser) Time collected: 0848 Time in formalin: 0925 (GM Beth (ASCP) 12/31/2024 9:41 AM 01/02/2025 4:00 PM CDT LABORATORY Microscopic Description Microscopic examination was performed. 01/02/2025 4:00 PM CDT LABORATORY MCRS Yes(A) N/A 01/02/2025 4:00 PM CDT LABORATORY Performing Labs The technical component of this testing was completed at [facility]. Stain controls for all stains resulted within this report have been reviewed and show appropriate reactivity. 01/02/2025 4:00 PM CDT LABORATORY Case Images 01/02/2025 4:00 PM CDT LABORATORY Lumpectomy RIGHT BREAST STRUCTURE / Unknown 12/31/2024 8:12 AM CDT 12/31/2024 8:21 AM CDT Comment:GROSS FOR MARGINS CLIP AND TAG VERIFIED USING RFID BY DR. HO Tissue specimen (specimen) STRUCTURE OF LYMPH NODE / Unknown 12/31/2024 8:23 AM CDT 12/31/2024 9:26 AM CDT Tissue specimen (specimen) STRUCTURE OF LYMPH NODE / Unknown 12/31/2024 8:35 AM CDT 12/31/2024 9:26 AM CDT Lumpectomy breast specimen (specimen) RIGHT BREAST STRUCTURE / Unknown 12/31/2024 8:46 AM CDT 12/31/2024 9:26 AM CDT Comment:NEW SUPERIOR MARGIN INK BILL NEW MARGIN Lumpectomy breast specimen (specimen) RIGHT BREAST STRUCTURE / Unknown 12/31/2024 8:48 AM CDT 12/31/2024 9:26 AM CDT Comment:NEW LATERAL MARGIN INK BILL NEW MARGIN us Lynn QUINTANILLA - VAMSHI MERRILL Final Result LABORATORY [facility] [address] 1st [address], [address] [place] [address], [facility] [phone] LABORATORY [facility] [address] [facility] (1st floor, no room number) [place] [address], [facility] documented in this encounter Visit Diagnoses Diagnosis Malignant neoplasm of upper-inner quadrant of right breast in female, estrogen receptor positive (H)- Primary documented in this encounter Administered Medications Inactive Administered Medications - up to 3 most recent administrations Medication Order MAR Action Action Date Dose Rate Site acetaminophen (TYLENOL) tablet 650 mg 650 mg, Oral, ONCE PRN, mild pain, to moderate pain, Starting on Mon12/31/24 at 1042, One time prior to discharge. Maximum acetaminophen dose from all sources = 75 mg/kg/day not to exceed 4 grams/day. $Given 12/31/2024 10:45 AM CDT 650 mg dexAMETHasone (DECADRON) injection 4 mg 4 mg, Intravenous, ONCE PRN, nausea/vomiting - 2nd line, Phase II, Administer over 1 Minutes, Starting on Mon12/31/24 at 1042, For 1 dose, Administer ONLY if dexamethasone (DECADRON) NOT given in the OR. This is Step 2 of nausea and vomiting management. IF nausea vomiting NOT resolved within 30 minutes or dexamethasone (DECADRON) was given in the OR go to Step 3 prochlorperazine (COMPAZINE)., Phase ll fentaNYL (PF) (SUBLIMAZE) injection 25 mcg 25 mcg, Intravenous, EVERY 15 MIN PRN, other, acute pain while in Phase II, Starting on Mon12/31/24 at 1042, Up to a total of 100 mcg. Use as a short acting IV agent for acute pain control. Patient must be monitored a minimum of 30 minutes before leaving the facility and meet all Phase II discharge criteria., Phase ll fentaNYL (PF) (SUBLIMAZE) injection 50 mcg 50 mcg, Intravenous, EVERY 5 MIN PRN, severe pain, Give fentaNYL (SUBLIMAZE) first if HYDROmorphone (DILAUDID) also ordered., Starting on Mon12/31/24 at 0926, - IF patient has received 2 doses of fentaNYL (SUBLIMAZE) AND continues to have severe pain (pain score greater than or equal to seven (7) or is unable to participate in post op recovery due to pain. Wait 5 minutes AFTER last fentaNYL (SUBLIMAZE) dose before administering HYDROmorphone (DILADUDID). Postop Anesthesia Phase I only. Notify Provider to assess for uncontrolled pain or analgesic side effects. DO NOT revert back to fentanyl (SUBLIMAZE) after moving to HYDROmorphone (DILAUDID)., PACU $Given 12/31/2024 9:42 AM CDT 50 mcg $Given 12/31/2024 9:33 AM CDT 50 mcg HYDROmorphone (DILAUDID) injection 0.2 mg 0.2 mg, Intravenous, EVERY 5 MIN PRN, moderate pain, Starting on Mon12/31/24 at 0926, Use FentaNYL (SUBLIMAZE) first if ordered. Administer HYDROmorphone (DILAUDID) up to a total of 2 mg for moderate or severe pain. Notify Provider to assess for uncontrolled pain or analgesic side effects., PACU $Given 12/31/2024 10:51 AM CDT 0.2 mg HYDROmorphone (DILAUDID) injection 0.4 mg 0.4 mg, Intravenous, EVERY 5 MIN PRN, severe pain, Starting on Mon12/31/24 at 0926, Use FentaNYL (SUBLIMAZE) first if ordered. Administer HYDROmorphone (DILAUDID) up to a total of 2 mg for moderate or severe pain. Notify Provider to assess for uncontrolled pain or analgesic side effects., PACU $Given 12/31/2024 10:30 AM CDT 0.4 mg $Given 12/31/2024 10:15 AM CDT 0.4 mg $Given 12/31/2024 9:51 AM CDT 0.4 mg lactated ringers infusion at 10 mL/hr, Intravenous, CONTINUOUS, IF patient NOT on dialysis., Pre-procedure, Starting on Mon12/31/24 at 0630, Until Mon12/31/24 at 0921 $New Bag 12/31/2024 7:11 AM CDT 10 mL/hr naloxone (NARCAN) injection 0.1 mg 0.1 mg, Intravenous, EVERY 2 MIN PRN, opioid reversal, Starting on Mon12/31/24 at 1042, Notify Anesthesia Provider when administering naloxone (NARCAN) for unintended sedation or respiratory depression IF all three of the following criteria are met: 1. Respiratory rate LESS than or EQUAL to 8. 2. SaO2 is LESS than 92% and/or end-tidal CO2 is GREATER than 50. 3. Patient is receiving an opioid, has unintended sedation assessed as RASS (-4) or (-5) and patient is NOT currently on mechanical ventilation. RASS scale (-4) is deep sedation with no response to voice but movement or eye opening to physical stimulation. RASS scale (-5) is unarousable. Notify Anesthesia Provider PRIOR to administering additional opioids if naloxone (NARCAN) given. Once patient has demonstrated a response to naloxone (NARCAN), continue to monitor respiratory rate, depth, oxygen saturation EVERY 15 minutes x 2, then EVERY 30 minutes x 2, then EVERY hour x 1 after each naloxone (NARCAN) dose. Monitor in Phase II for 2 hours after last naloxone (NARCAN) dose PRIOR to discharge., Phase ll ondansetron (ZOFRAN ODT) ODT tab 4 mg 4 mg, Oral, EVERY 30 MIN PRN, nausea/vomiting - 1st line, Phase II, Starting on Mon12/31/24 at 1042, For 2 doses, Administer if NO vascular access present. This is Step 1 of nausea and vomiting management. If nausea/vomiting not resolved in 15 minutes, go to Step 2 dexamethasone (DECADRON) IV. MAX total dose = 8 mg, including OR dosing. With dry hands, peel back foil backing and gently remove tablet. Do not push oral disintegrating tablet through foil backing. Administer immediately on tongue and oral disintegrating tablet dissolves in seconds, then swallow with saliva. Liquid not required., Phase ll ondansetron (ZOFRAN) injection 4 mg 4 mg, Intravenous, EVERY 30 MIN PRN, nausea/vomiting - 1st line, Phase II, Administer over 2-5 Minutes, Starting on Mon12/31/24 at 1042, For 2 doses, This is Step 1 of nausea and vomiting management. If nausea/vomiting not resolved in 15 minutes, then go to Step 2 dexamethasone (DECADRON) IV. MAX total dose = 8 mg, including OR dosing., Phase ll oxyCODONE (ROXICODONE) tablet 10 mg 10 mg, Oral, ONCE PRN, severe pain, Starting on Mon12/31/24 at 1042, For 1 dose, Max: 5 mg for opioid-na ve patient. Use caution with patient Age GREATER than 65 years, COPD, or CrCl LESS than 50 mL/min., Phase ll oxyCODONE (ROXICODONE) tablet 5 mg 5 mg, Oral, ONCE PRN, moderate pain, other, or is unable to participate in post op recovery due to pain., Starting on Mon12/31/24 at 1042, For 1 dose, Max: 5 mg for opioid-na ve patient., Phase ll $Given 12/31/2024 10:45 AM CDT 5 mg prochlorperazine (COMPAZINE) injection 5 mg 5 mg, Intravenous, EVERY 6 HOURS PRN, nausea/vomiting - 3rd line, Phase II, Administer over 1-2 Minutes, Starting on Mon12/31/24 at 1042, This is Step 3 of the nausea and vomiting protocol. If nausea/vomiting not resolved in 15-30 minutes, notify Provider., Phase ll documented in this encounter Active and Recently Administered Medications Times are shown in CDT. Scheduled Medication Order 12/29/2024 12/30/2024 12/31/2024 ceFAZolin Sodium (ANCEF) injection 2 g (CANCELED) Routine, 2 g, Intravenous, SEE ADMIN INSTRUCTIONS, Starting on Mon12/31/24 at 0613, Intra-Op Dose. Give every 4 hours while patient in surgery, starting 4 hours after pre-op dose., Indications: Perioperative Pharmacoprophylaxis, Pre-procedure 0731 ($Given - Provi fortunato: Ashley Wright APRN CRNA) Continuous Medication Order 12/29/2024 12/30/2024 12/31/2024 lactated ringers infusion (CANCELED) at 10 mL/hr, Intravenous, CONTINUOUS, IF patient NOT on dialysis., Pre-procedure, Starting on Mon12/31/24 at 0630, Until Mon12/31/24 at 0921 0711 ($New Bag - Pro vider: Lissett Connolly RN) PRN Medication Order 12/29/2024 12/30/2024 12/31/2024 acetaminophen (TYLENOL) tablet 650 mg 650 mg, Oral, ONCE PRN, mild pain, to moderate pain, Starting on Mon12/31/24 at 1042, One time prior to discharge. Maximum acetaminophen dose from all sources = 75 mg/kg/day not to exceed 4 grams/day. 1045 ($Given - Provi fortunato: Vero Garcia RN) BUPivacaine (MARCAINE) 0.5% injection PF (CANCELED) PRN, Starting on Mon12/31/24 at 0904, Intra-procedure 0904 ($Given - Provi fortunato: Ranjana Villalobos PA-C) dexAMETHasone (DECADRON) injection 4 mg 4 mg, Intravenous, ONCE PRN, nausea/vomiting - 2nd line, Phase II, Administer over 1 Minutes, Starting on Mon12/31/24 at 1042, For 1 dose, Administer ONLY if dexamethasone (DECADRON) NOT given in the OR. This is Step 2 of nausea and vomiting management. IF nausea vomiting NOT resolved within 30 minutes or dexamethasone (DECADRON) was given in the OR go to Step 3 prochlorperazine (COMPAZINE)., Phase ll fentaNYL (PF) (SUBLIMAZE) injection 25 mcg 25 mcg, Intravenous, EVERY 15 MIN PRN, other, acute pain while in Phase II, Starting on Mon12/31/24 at 1042, Up to a total of 100 mcg. Use as a short acting IV agent for acute pain control. Patient must be monitored a minimum of 30 minutes before leaving the facility and meet all Phase II discharge criteria., Phase ll fentaNYL (PF) (SUBLIMAZE) injection 50 mcg (CANCELED) 50 mcg, Intravenous, EVERY 5 MIN PRN, severe pain, Give fentaNYL (SUBLIMAZE) first if HYDROmorphone (DILAUDID) also ordered., Starting on Mon12/31/24 at 0926, - IF patient has received 2 doses of fentaNYL (SUBLIMAZE) AND continues to have severe pain (pain score greater than or equal to seven (7) or is unable to participate in post op recovery due to pain. Wait 5 minutes AFTER last fentaNYL (SUBLIMAZE) dose before administering HYDROmorphone (DILADUDID). Postop Anesthesia Phase I only. Notify Provider to assess for uncontrolled pain or analgesic side effects. DO NOT revert back to fentanyl (SUBLIMAZE) after moving to HYDROmorphone (DILAUDID)., PACU 0933 ($Given - Provi fortunato: Vero Garcia RN)0942 ($Given - Provider: Vero Garcia RN) HYDROmorphone (DILAUDID) injection 0.2 mg (CANCELED) 0.2 mg, Intravenous, EVERY 5 MIN PRN, moderate pain, Starting on Mon12/31/24 at 0926, Use FentaNYL (SUBLIMAZE) first if ordered. Administer HYDROmorphone (DILAUDID) up to a total of 2 mg for moderate or severe pain. Notify Provider to assess for uncontrolled pain or analgesic side effects., PACU 1051 ($Given - Provi fortunato: Vero Garcia RN) HYDROmorphone (DILAUDID) injection 0.4 mg (CANCELED) 0.4 mg, Intravenous, EVERY 5 MIN PRN, severe pain, Starting on Mon12/31/24 at 0926, Use FentaNYL (SUBLIMAZE) first if ordered. Administer HYDROmorphone (DILAUDID) up to a total of 2 mg for moderate or severe pain. Notify Provider to assess for uncontrolled pain or analgesic side effects., PACU 0951 ($Given - Provi fortunato: Vero Garcia RN)1015 ($Given - Provider: Maty Hammond RN)1030 ($Given - Provider: Vero Garcia RN) methylene blue (PROVAYBLUE) 5 mg/mL injection (CANCELED) PRN, Starting on Mon12/31/24 at 0744, Intra-procedure 0744 ($Given - Provi fortunato: Lynn Ho MD - Comment: 2cc blue/cc sterile water) naloxone (NARCAN) injection 0.1 mg 0.1 mg, Intravenous, EVERY 2 MIN PRN, opioid reversal, Starting on Mon12/31/24 at 1042, Notify Anesthesia Provider when administering naloxone (NARCAN) for unintended sedation or respiratory depression IF all three of the following criteria are met: 1. Respiratory rate LESS than or EQUAL to 8. 2. SaO2 is LESS than 92% and/or end-tidal CO2 is GREATER than 50. 3. Patient is receiving an opioid, has unintended sedation assessed as RASS (-4) or (-5) and patient is NOT currently on mechanical ventilation. RASS scale (-4) is deep sedation with no response to voice but movement or eye opening to physical stimulation. RASS scale (-5) is unarousable. Notify Anesthesia Provider PRIOR to administering additional opioids if naloxone (NARCAN) given. Once patient has demonstrated a response to naloxone (NARCAN), continue to monitor respiratory rate, depth, oxygen saturation EVERY 15 minutes x 2, then EVERY 30 minutes x 2, then EVERY hour x 1 after each naloxone (NARCAN) dose. Monitor in Phase II for 2 hours after last naloxone (NARCAN) dose PRIOR to discharge., Phase ll ondansetron (ZOFRAN ODT) ODT tab 4 mg(Linked Group 1) 4 mg, Oral, EVERY 30 MIN PRN, nausea/vomiting - 1st line, Phase II, Starting on Mon12/31/24 at 1042, For 2 doses, Administer if NO vascular access present. This is Step 1 of nausea and vomiting management. If nausea/vomiting not resolved in 15 minutes, go to Step 2 dexamethasone (DECADRON) IV. MAX total dose = 8 mg, including OR dosing. With dry hands, peel back foil backing and gently remove tablet. Do not push oral disintegrating tablet through foil backing. Administer immediately on tongue and oral disintegrating tablet dissolves in seconds, then swallow with saliva. Liquid not required., Phase ll ondansetron (ZOFRAN) injection 4 mg(Linked Group 1) 4 mg, Intravenous, EVERY 30 MIN PRN, nausea/vomiting - 1st line, Phase II, Administer over 2-5 Minutes, Starting on Mon12/31/24 at 1042, For 2 doses, This is Step 1 of nausea and vomiting management. If nausea/vomiting not resolved in 15 minutes, then go to Step 2 dexamethasone (DECADRON) IV. MAX total dose = 8 mg, including OR dosing., Phase ll oxyCODONE (ROXICODONE) tablet 10 mg 10 mg, Oral, ONCE PRN, severe pain, Starting on Mon12/31/24 at 1042, For 1 dose, Max: 5 mg for opioid-na ve patient. Use caution with patient Age GREATER than 65 years, COPD, or CrCl LESS than 50 mL/min., Phase ll oxyCODONE (ROXICODONE) tablet 5 mg 5 mg, Oral, ONCE PRN, other, pain control or improvement in physical function. , Starting on Mon12/31/24 at 1042, For 1 dose, Notify provider to assess for uncontrolled pain or analgesic side effects. oxyCODONE (ROXICODONE) tablet 5 mg (COMPLETED) 5 mg, Oral, ONCE PRN, moderate pain, other, or is unable to participate in post op recovery due to pain., Starting on Mon12/31/24 at 1042, For 1 dose, Max: 5 mg for opioid-na ve patient., Phase ll 1045 ($Given - Provi fortunato: Vero Garcia RN) prochlorperazine (COMPAZINE) injection 5 mg 5 mg, Intravenous, EVERY 6 HOURS PRN, nausea/vomiting - 3rd line, Phase II, Administer over 1-2 Minutes, Starting on Mon12/31/24 at 1042, This is Step 3 of the nausea and vomiting protocol. If nausea/vomiting not resolved in 15-30 minutes, notify Provider., Phase ll sodium chloride 0.9% (bottle) irrigation (CANCELED) PRN, Starting on Mon12/31/24 at 0857, Intra-procedure 0857 ($Given - Provi fortunato: Lynn Ho MD) Linked Groups Order Group 1: ondansetron (ZOFRAN ODT) ODT tab 4 mgJump to med 4 mg, Oral, EVERY 30 MIN PRN, nausea/vomiting - 1st line, Phase II, Starting on Mon12/31/24 at 1042, For 2 doses, Administer if NO vascular access present. This is Step 1 of nausea and vomiting management. If nausea/vomiting not resolved in 15 minutes, go to Step 2 dexamethasone (DECADRON) IV. MAX total dose = 8 mg, including OR dosing. With dry hands, peel back foil backing and gently remove tablet. Do not push oral disintegrating tablet through foil backing. Administer immediately on tongue and oral disintegrating tablet dissolves in seconds, then swallow with saliva. Liquid not required., Phase ll Or ondansetron (ZOFRAN) injection 4 mgJump to med 4 mg, Intravenous, EVERY 30 MIN PRN, nausea/vomiting - 1st line, Phase II, Administer over 2-5 Minutes, Starting on Mon12/31/24 at 1042, For 2 doses, This is Step 1 of nausea and vomiting management. If nausea/vomiting not resolved in 15 minutes, then go to Step 2 dexamethasone (DECADRON) IV. 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
--- OUTSIDE RECORDS SUMMARY | 2024-12-31 06:20 | XMS_ITS | Encounter Summary ---
Author Organization [place] Address [address] [facility] [place] [address] Care Team Providers Care Scrap Baler Name Role Phone Donna Lamas MD Primary Care Provider Unavailab Rosa Isela Brown PA-C Unavailable [phone] Rosa Isela Mae PA-C Unavailable Wilma Carrasco MD Unavailable [phone] Lynn Ho MD Unavailable [phone] Reason for Referral * Diagnostic Imaging NM (Routine) - Closed Specialty Diagnoses / Procedures Referred By Armida hernandez Referred To Contact Radiology. Diagnoses Breast cancer, stage 1, estrogen receptor positive, right (H) Procedures NM Lymphoscintigraphy Injection only Lynn Ho MD [address] [place] [address] Phone: tel: fax: [facility] [address] [place] [address] Phone: tel: fax: Referral ID Status Reason Start Date Expiration Date Visits Re quested Visits Authorized [id number] Closed 11/27/2024 11/27/2025 1 1 Reason for Visit * Auth/Cert Specialty Diagnoses / Procedures Referred By Armida hernandez Referred To Contact Surgery Diagnoses Breast cancer, stage 1, estrogen receptor positive, right (H) Breast cancer, stage 1, estrogen receptor positive, right (H) [C50.911, Z17.0] Procedures TX MASTECTOMY, PARTIAL TX BIOPSY/EXCISION LYMPH NODE OPEN SUPERFICIAL TX BIOPSY/EXCISION LYMPH NODE NEEDLE SUPERFICIAL TX BX/REMV,LYMPH NODE,DEEP CERV TX BX/REMV,LYMPH NODE,DEEP CERV/SCAL TX BX/REMV,LYMPH NODE,DEEP AXILL TX BX/REMV,LYMPH NODE,COPYWRITING INTERN MAMM TX OPEN BIOPSY/EXCISION INGUINOFEMORAL NODES LUMPECTOMY, BREAST, LOCALIZED USING RADIOFREQUENCY IDENTIFICATION,RIGHT SENTINEL LYMPH NODE BIOPSY [facility] [address] [place] [address] Phone: tel: fax: Referral ID Status Reason Start Date Expiration Date Visits Re quested Visits Authorized [id number] 1 1 Encounter Details Date Type Department Care Team (Latest Contact Info) Description 12/31/2024 6:20 AM CDT - 12/31/2024 6:26 AM CDT Hospital Encounter [facility] [address] [place] [address] [facility] [address] [place], [place] [id number] Breast cancer, stage 1, estrogen receptor positive, [...] in an abandoned building, in an overnight care home, or couch-surfing.) Yes 12/16/2024 Are you [...] on file 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 Injection Completed @ 06;35 am. WAM documented in this encounter Plan of Treatment Upcoming Encounters Date Type Department Care Team (Late st Contact Info) Description 03/20/2025 2:30 PM CDT Ancillary Procedure [address] [place] [address] Wilma Carrasco MD [address] [place] [address] documented as of this encounter Procedures Procedure Name Priority Date/Time Associated Diagnosis Comments NM LYMPHOSCINTIGRAPHY INJECTION ONLY Routine 12/31/2024 6:50 AM CDT Breast cancer, stage 1, estrogen receptor positive, right (H) documented in this encounter Results * NM Lymphoscintigraphy Injection only (12/31/2024 6:50 AM CDT) Anatomical Region Laterality Modality Breast Nuclear Medicine Narrative 12/31/2024 8:53 AM CDT Examination: NM LYMPHOSCINTIGRAPHY INJECTION ONLY, 12/31/2024 6:50 AM Indication: Breast cancer, stage 1, estrogen receptor positive, right (H); Breast cancer, stage 1, estrogen receptor positive, right (H) Technique: 540 uci of Tc-99m Lymphoseek (r) was injected. Images were not obtained as part of the localization procedure. WASHINGTON CHRISTIAN MD Procedure Note Washington Christian MD - 12/31/2024 Examination: NM LYMPHOSCINTIGRAPHY INJECTION ONLY, 12/31/2024 6:50 AM Indication: Breast cancer, stage 1, estrogen receptor positive, right (H); Breast cancer, stage 1, estrogen receptor positive, right (H) Technique: 540 uci of Tc-99m Lymphoseek (r) was injected. Images were not obtained as part of the localization procedure. WASHINGTON CHRISTIAN MD us Lynn Ho MD [facility] [place] ORDERABLES Final Resul t documented in this encounter Visit Diagnoses Diagnosis Breast cancer, stage 1, estrogen receptor positive, right (H) documented in this encounter Administered Medications Inactive Administered Medications - up to 3 most recent administrations Medication Order MAR Action Action Date Dose Rate Site technetium tilmanocept Tc99m (LYMPHOSEEK) radioisotope injection 0.5 millicurie 0.5 millicurie, Subcutaneous, ONCE, On Mon12/31/24 at 0630, For 1 dose, Supplied by, and administered by Nuclear Medicine. 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
--- OUTSIDE RECORDS SUMMARY | 2024-12-31 06:27 | XMS_ITS | Encounter Summary ---
Author Organization [place] Address [address] [place] [address] Care Team Providers Care Typewriter Repairer Name Role Phone Donna Lamas MD Primary Care Provider Unavailab Rosa Isela Brown PA-C Unavailable [phone] Rosa Isela Mae PA-C Unavailable [phone] Wilma Carrasco MD Unavailable [phone] Lynn Ho MD Unavailable [phone] Reason for Referral * Diagnostic Imaging Mammo (Routine) - Pending Review Specialty Diagnoses / Procedures Referred By Armida hernandez Referred To Contact Radiology. Diagnoses Breast cancer, stage 1, estrogen receptor positive, right (H) Procedures MA Breast Specimen Right OR Lynn Ho MD [address] [place] [address] Phone: tel: fax: Referral ID Status Reason Start Date Expiration Date V isits Requested Visits Authorized [id number] Pending Review 11/27/2024 11/27/2025 1 1 Reason for Visit * Auth/Cert Specialty Diagnoses / Procedures Referred By Armida hernandez Referred To Contact Surgery Diagnoses Breast cancer, stage 1, estrogen receptor positive, right (H) Breast cancer, stage 1, estrogen receptor positive, right (H) [C50.911, Z17.0] Procedures OH MASTECTOMY, PARTIAL OH BIOPSY/EXCISION LYMPH NODE OPEN SUPERFICIAL OH BIOPSY/EXCISION LYMPH NODE NEEDLE SUPERFICIAL OH BX/REMV,LYMPH NODE,DEEP CERV OH BX/REMV,LYMPH NODE,DEEP CERV/SCAL OH BX/REMV,LYMPH NODE,DEEP AXILL OH BX/REMV,LYMPH NODE,AUDIT CONTROL CLERK MAMM OH OPEN BIOPSY/EXCISION INGUINOFEMORAL NODES LUMPECTOMY, BREAST, LOCALIZED USING RADIOFREQUENCY IDENTIFICATION,RIGHT SENTINEL LYMPH NODE BIOPSY [facility] [address] [place] [address] Phone: tel: fax: Referral ID Status Reason Start Date Expiration Date Visits Re quested Visits Authorized [id number] 1 1 Encounter Details Date Type Department Care Team (Latest Contact Info) Description 12/31/2024 6:27 AM CDT - 12/31/2024 11:59 PM CDT Hospital Encounter [facility] [address], [address] [place] [phone] [facility] [address] [place] [address] Breast cancer, stage 1, estrogen receptor positive, [...] Answer Date Recorded Do you have housing? 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 Gender Identity Not on file Sexual Orientation [...] 03/20/2025 2:30 PM CDT Ancillary Procedure [address] [place] [address] Wilma Carrasco MD [address] [place], [place] [address] documented as of this encounter Procedures Procedure Name Priority Date/Time Associated Diagnosis Comments MA BREAST SPECIMEN RIGHT OR Routine 12/31/2024 9:34 AM CDT Breast cancer, stage 1, estrogen receptor positive, right (H) documented in this encounter Results * MA Breast Specimen Right OR (12/31/2024 9:34 AM CDT) Narrative RADIANT - 12/31/2024 9:34 AM CDT This exam was marked as non-reportable because it will not be read by a radiologist or a [facility] non-radiologist provider. 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
--- OUTSIDE RECORDS SUMMARY | 2024-12-31 07:33 | XMS_ITS | Encounter Summary ---
Author Organization [place] Address [address] [facility] [place] [address] Care Team Providers Care Batter Out Name Role Phone Donna Lamas MD Primary Care Provider Unavailab Rosa Isela Brown PA-C Unavailable [phone] Rosa Isela aMe PA-C Unavailable [phone] Wilma Carrasco MD Unavailable Lynn Ho MD Unavailable [phone] Reason for Visit * Auth/Cert Specialty Diagnoses / Procedures Referred By Armida hernandez Referred To Contact Surgery Diagnoses Breast cancer, stage 1, estrogen receptor positive, right (H) Breast cancer, stage 1, estrogen receptor positive, right (H) [C50.911, Z17.0] Procedures [place] MASTECTOMY, PARTIAL [place] BIOPSY/EXCISION LYMPH NODE OPEN SUPERFICIAL [place] BIOPSY/EXCISION LYMPH NODE NEEDLE SUPERFICIAL MN BX/REMV,LYMPH NODE,DEEP CERV MN BX/REMV,LYMPH NODE,DEEP CERV/SCAL MN BX/REMV,LYMPH NODE,DEEP AXILL MN BX/REMV,LYMPH NODE,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 [place] OPEN BIOPSY/EXCISION INGUINOFEMORAL NODES LUMPECTOMY, BREAST, LOCALIZED USING RADIOFREQUENCY IDENTIFICATION,RIGHT SENTINEL LYMPH NODE BIOPSY [facility] [address] [place] [address] Phone: tel: fax: Referral ID Status Reason Start Date Expiration Date Visits Re quested Visits Authorized [id number] 1 1 Encounter Details Date Type Department Care Team (Late st Contact Info) Description 12/31/2024 7:33 AM CDT Anesthesia Event [facility] [address] [place] [id number] Lizz Avendaño MD [facility] ANESTHESIA [address] [address] Ashley Wright APRN CRNA [facility] ANESTHESIA [address] [place] [address] Anesthesia Record Procedure Summary Procedure Name Responsible Anesthesiologist Anesthesia Start Time Anesthesia Stop Time LUMPECTOMY, BREAST, LOCALIZED USING RADIOFREQUENCY IDENTIFICATION,RIGHT SENTINEL LYMPH NODE BIOPSY (Right: Breast) Lizz Avendaño MD 12/31/24 0733 12/31/24 092 4 Events Date Time Event Comment 12/31/2024 0711 0733 An Start Anesthesia Star t is defined as when the anesthesia provider assumed care, began anesthesia prep, remained continuously present with the patient, and excludes all time for performing the pre-anesthesia evaluation. The Pre-Anesthesia Evaluation was completed before Anesthesia Start. 0733 An Start Data 0733 AN REASSESS I attest that I have identified and re-evaluated the patient immediately before the induction of anesthesia and I am satisfied that the anesthetic plan is suitable for the patient's condition and procedure. The first vital signs recorded are pre-induction. Ashley Wright APRN CRNA 0736 Present 0736 An Induction 0739 An LMA 0757 AN INCISION 0919 LMA Removed 0919 an stop data 0924 An Stop Electronically signed by Ashley Wright APRN CRNA on December 31, 2024 9:24 AM Meds Name Total midazolam 1 mg/mL 2 mg fentaNYL 50 mcg/mL 100 mcg ketorolac 30 mg/mL 15 mg lidocaine 2% 50 mg propofol 10 mg/mL 200 mg propofol drip mcg/kg/min 181.97 mg phenylephrine (YARELI-SYNEPHRINE) injection 200 mcg dexamethasone (DECADRON) 4 mg/mL 8 mg ondansetron 2 mg/mL 4 mg ceFAZolin Sodium (ANCEF) injection 2 g 2 g LR 600 mL * Agents Name O2 N2O Air Exp Sevoflurane Exp Isoflurane Exp Desflurane Ins Sevoflurane Ins Isoflurane Ins Desflurane * Blood No blood administrations on file. Lines, Drains, and Airways Type Details Placement Removal Incision/Surgical Site Incision; 5; 0852; Right; Breast; Incision x2 12/31/24 0852 by Mayda Masterson RN Peripheral IV 12/31/24; 0610; 20 G ; Left, Dorsal; Hand; Chlorhexidine; None 12/31/24 0610 by Florencia Louise RN 12/31/24 1226 by Clara Serra RN Supraglottic Airway Placement Date: 12/31/24; Placement Time: 746 (created via procedure documentation); LMA Size: 4; Airway Brand: I-Gel 12/31/24 0747 by Ashley Wright APRN CRNA 12/31/24 0919 by Ashley Wright APRN CLINICAL TRANSPLANT COORDINATOR documented in this encounter Social History Tobacco Use Types Packs/Day Years [...] on file 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 status CV/Hemodynamics: Uneventful Sign Out: Acceptable CV status; No obvious hypovolemia; No obvious fluid overload Other NRE: DID A NON-ROUTINE EVENT OCCUR? No Last vitals: Vitals Value Taken Time BP 131/70 12/31/24 10:50 Temp 97 ??F (36.1 ??C) 12/31/24 09:22 Pulse 67 12/31/24 10:52 Resp 17 12/31/24 10:52 SpO2 96 % 12/31/24 10:52 Vitals shown include unfiled device data. Electronically Signed By: Lizz Avendaño MD, December 31, 2024 10:53 AM * Anesthesia Procedure Notes - Ashley Wright APRN CRNA - 12/31/2024 7:47 AM CDT Associated Order(s): Airway Airway Patient location during procedure: OR Staff - Performed By: CRNAIndications and Patient Condition Indications for airway management: jonathan-procedural Final Airway Details Final airway type: supraglottic airway Supraglottic Airway Details Type: LMA Brand: I-Gel LMA size: 4 Post intubation assessment Ease of procedure: easy * Anesthesia Preprocedure Evaluation - Kateryna, Lizz Michaels MD - 12/31/2024 7:11 AM CDT Anesthesia Pre-Procedure Evaluation Patient: Kasie Treviño : 1965 Procedure : Procedure(s): LUMPECTOMY, BREAST, LOCALIZED USING RADIOFREQUENCY IDENTIFICATION,RIGHT SENTINEL LYMPH NODE BIOPSY History reviewed. No pertinent past medical history. Past Surgical History: Procedure Laterality Date BACK SURGERY Allergies Allergen Reactions Indomethacin GI Disturbance Social History Tobacco Use Smoking status: Every Day Types: Cigarettes Smokeless tobacco: Never Substance Use Topics Alcohol use: Never Wt Readings from Last 1 Encounters: 12/31/24 58.7 kg (129 lb 6.4 oz) Anesthesia Evaluation Pt has had prior anesthetic. No history of anesthetic complications ROS/MED HX ENT/Pulmonary: (-) sleep apnea Neurologic: (-) no CVA Cardiovascular: (-) CAD METS/Exercise Tolerance: Hematologic: Musculoskeletal: GI/Hepatic: (-) GERD Renal/Genitourinary: Endo: (-) Type II DM Psychiatric/Substance Use: Infectious Disease: Malignancy: (+) Malignancy, History of Breast. Other: Physical Exam Airway Mallampati: II TM distance: >3 FB Neck ROM: full Mouth opening: >= 4 cm Cardiovascular - normal exam Dental (+) Minor Abnormalities - some fillings, tiny chips Pulmonary - normal exam Neurological - normal exam She appears awake, alert and oriented x3. Other Findings OUTSIDE LABS: CBC: Lab Results Component Value Date WBC 9.4 12/16/2024 HGB 15.3 12/16/2024 HCT 43.6 12/16/2024 PLT 188 12/16/2024 BMP: No results found for: NA, POTASSIUM, CHLORIDE, CO2, BUN, CR, GLC COAGS: No results found for: PTT, INR, FIBR POC: No results found for: BGM, HCG, HCGS HEPATIC: No results found for: ALBUMIN, PROTTOTAL, ALT, AST, GGT, ALKPHOS, BILITOTAL,BILIDIRECT, DYLAN OTHER: No results found for: PH, LACT, A1C, PJ, PHOS, MAG, LIPASE, AMYLASE, TSH,T4, T3, CRP, SED Anesthesia Plan ASA Status: 2 NPO Status: NPO Appropriate Anesthesia Type: General. Induction: intravenous. Consents Anesthesia Plan(s) and associated risks, benefits, and realistic alternatives discussed. Questions answered and patient/traveling sales representative(s) expressed understanding. - Discussed: - Discussed with: Patient Postoperative Care Comments: Lizz Avendaño MD, MD I have reviewed the pertinent notes and labs in the chart from the past 30 days and (re)examined the patient. Any updates or changes from those notes are reflected in this note. Clinically Significant Risk Factors Present on Admission documented in this encounter Miscellaneous Notes * Anesthesia Care Transfer Note - Ashley Wright APRN CLINICAL TRANSPLANT COORDINATOR - 12/31/2024 9:24 AM CDT Patient: Kasie Treviño Procedure: Procedure(s): LUMPECTOMY, BREAST, LOCALIZED USING RADIOFREQUENCY IDENTIFICATION,RIGHT SENTINEL LYMPH NODE BIOPSY Diagnosis: Breast cancer, stage 1, estrogen receptor positive, right (H) [C50.911, Z17.0] Diagnosis Additional Information: No value filed. Anesthesia Type: General Note: Oropharynx: oropharynx clear of all foreign objects Level of Consciousness: drowsy Oxygen Supplementation: face mask Independent Airway: airway patency satisfactory and stable Dentition: dentition unchanged Vital Signs Stable: post-procedure vital signs reviewed and stable Patient transferred to: PACU Handoff Report: Identifed the Patient, Identified the Reponsible Provider, Reviewed the pertinent medical history, Discussed the surgical course, Reviewed Intra-OP anesthesia mangement and issues during anesthesia, Set expectations for post-procedure period and Allowed opportunity for questions andacknowledgement of understanding Vitals: Vitals Value Taken Time BP Temp Pulse 56 12/31/24 09:23 Resp 13 12/31/24 09:23 SpO2 100 % 12/31/24 09:23 Vitals shown include unfiled device data. Electronically Signed By: Ashley Wright APRN CRNA December 31, 2024 9:24 AM documented in this encounter Plan of Treatment Upcoming Encounters Date Type Department Care Team (Late st Contact Info) Description 03/20/2025 2:30 PM CDT Ancillary Procedure [facility] [address] [place] [address] Wilma Carrasco MD [address] [place] [phone] documented as of this encounter Procedures Procedure Name Priority Date/Time Associated Diagnosis Comments ANE AIRWAY SUPRAGLOTTIC PERFORMABLE Routine 12/31/2024 7:47 AM CDT documented in this encounter Results * ANE AIRWAY SUPRAGLOTTIC PERFORMABLE (12/31/2024 7:47 AM CDT) Narrative Ashley Wright APRN CRNA - 12/31/2024 7:47 AM CDT Ashley Wright APRN CRNA 12/31/2024 7:47 AM Airway Patient location during procedure: OR Staff - Performed By: KANDYIndications and Patient Condition Indications for airway management: jonathan-procedural Final Airway Details Final airway type: supraglottic airway Supraglottic Airway Details Type: LMA Brand: I-Gel LMA size: 4 Post intubation assessment Ease of procedure: easy Lizz Avendaño MD [place] ANESTHESIA Final Res ult documented in this encounter Visit Diagnoses Not on filedocumented in this encounter Administered Medications Inactive Administered Medications - up to 3 most recent administrations Medication Order MAR Action Action Date Dose Rate Site ceFAZolin Sodium (ANCEF) injection 2 g Routine, 2 g, Intravenous, SEE ADMIN INSTRUCTIONS, Starting on Mon12/31/24 at 0613, Intra-Op Dose. Give every 4 hours while patient in surgery, starting 4 hours after pre-op dose., Indications: Perioperative Pharmacoprophylaxis, Pre-procedureIndications:Perioperat ger Pharmacoprophylaxis $Given 12/31/2024 7:31 AM CDT 2 g dexAMETHasone (DECADRON) injection Intravenous, PRN, Administer over 1 Minutes, Starting on Mon12/31/24 at 0736, Anesthesia Intra-op $Given 12/31/2024 7:36 AM CDT 8 mg fentaNYL (PF) (SUBLIMAZE) injection Intravenous, PRN, Administer over 3-5 Minutes, Starting on Mon12/31/24 at 0736, Anesthesia Intra-op $Given 12/31/2024 7:52 AM CDT 50 mcg $Given 12/31/2024 7:36 AM CDT 50 mcg ketorolac (TORADOL) injection Intravenous, PRN, Administer over 2 Minutes, Starting on Mon12/31/24 at 0857, Anesthesia Intra-op $Given 12/31/2024 8:57 AM CDT 15 mg lactated ringers infusion Intravenous, CONTINUOUS PRN, Anesthesia Intra-op, Starting on Mon12/31/24 at 0733, Until Mon12/31/24 at 0924 $New Bag 12/31/2024 7:33 AM CDT lidocaine 2% injection (MDV) Intravenous, PRN, Starting on Mon12/31/24 at 0736, Anesthesia Intra-op $Given 12/31/2024 7:36 AM CDT 50 mg midazolam (VERSED) injection Intravenous, Administer over 2 Minutes, PRN, Starting on Mon12/31/24 at 0732, Anesthesia Intra-op $Given 12/31/2024 7:32 AM CDT 2 mg ondansetron (ZOFRAN) injection Intravenous, PRN, Administer over 2-5 Minutes, Starting on Mon12/31/24 at 0828, Anesthesia Intra-op $Given 12/31/2024 8:28 AM CDT 4 mg phenylephrine (YARELI-SYNEPHRINE) injection Intravenous, CONTINUOUS PRN, Starting on Mon12/31/24 at 0744, Anesthesia Intra-op $Bolus 12/31/2024 7:54 AM CDT 100 mcg $New Bag 12/31/2024 7:44 AM CDT 100 mcg propofol (DIPRIVAN) infusion Intravenous, CONTINUOUS PRN, Starting on Mon12/31/24 at 0744, Anesthesia Intra-op $New Bag 12/31/2024 7:44 AM CDT 50 mcg/kg/min 17.61 mL/hr propofol (DIPRIVAN) injection 10 mg/mL vial Intravenous, PRN, Starting on Mon12/31/24 at 0736, Anesthesia Intra-op $Given 12/31/2024 7:36 AM CDT 200 mg documented in this encounter Care Teams Batter Out Relationship Specialty Start Date End Date Donna Lamas MD PCP - General Family Practice 01/25/12 Rosa Isela Mae PA-C [address] [facility] [address] [place] [address] Physician Dealership General Manager meteorologist in charge 10/28/24 Rosa Isela Mae PA-C [address] [facility] [address] [place] [address] Assigned OBGYN Provider 11/10/24 Wilma Carrasco MD [address] [place] [address] [phone] Physician Hematology & Oncology 11/27/24 Lynn Ho MD [address] [place], [place] [address] Assigned Surgical Provider 12/11/24 documented as of this encounter
--- OUTSIDE RECORDS SUMMARY | 2024-12-31 07:40 | XMS_ITS | Encounter Summary ---
Author Organization [place] Address [address] [facility] [place] [address] Care Team Providers Care Customer Resource Specialist Name Role Phone Donna Lamas MD Primary Care Provider Unavailab Rosa Isela Brown PA-C Unavailable [phone] Rosa Isela Mae PA-C Unavailable [phone] Wilma Carrasco MD Unavailable [phone] Lynn Ho MD Unavailable [phone] Reason for Visit * Auth/Cert Specialty Diagnoses / Procedures Referred By Armida hernandez Referred To Contact Surgery Diagnoses Breast cancer, stage 1, estrogen receptor positive, right (H) Breast cancer, stage 1, estrogen receptor positive, right (H) [C50.911, Z17.0] Procedures VT MASTECTOMY, PARTIAL VT BIOPSY/EXCISION LYMPH NODE OPEN SUPERFICIAL VT BIOPSY/EXCISION LYMPH NODE NEEDLE SUPERFICIAL VT BX/REMV,LYMPH NODE,DEEP CERV VT BX/REMV,LYMPH NODE,DEEP CERV/SCAL VT BX/REMV,LYMPH NODE,DEEP AXILL VT BX/REMV,LYMPH NODE,RUBBER TIRE CURER MAMM VT OPEN BIOPSY/EXCISION INGUINOFEMORAL NODES LUMPECTOMY, BREAST, LOCALIZED USING RADIOFREQUENCY IDENTIFICATION,RIGHT SENTINEL LYMPH NODE BIOPSY [facility] [address] [place] [address] Phone: tel: fax: Referral ID Status Reason Start Date Expiration Date Visits Re quested Visits Authorized [id number] 1 1 Encounter Details Date Type Department Care Team (Late st Contact Info) Description 12/31/2024 7:40 AM CDT - 12/31/2024 10:30 AM CDT Surgery [facility] [address] [place] [phone] Lynn Ho MD [address] [address] LUMPECTOMY, BREAST, LOCALIZED USING RADIOFREQUENCY IDENTIFICATION,RIGHT SENTINEL LYMPH NODE BIOPSY Surgery Details Date/Time Status Location OR Service Patient Class Case Class Case Type Trauma Case? 12/31/2024 7:40 AM Posted [facility] OR OR 05 General Same Day Surgery Elective Panel 1 Procedure LRB Anes Op Region Wound Class Comments LUMPECTOMY, BREAST, LOCALIZE D USING RADIOFREQUENCY IDENTIFICATION,RIGHT SENTINEL LYMPH NODE BIOPSY Right General Breast I-Clean Surgeon Surgeon Role Service Panel Lynn Ho MD Primary General 1 Ranjana Villalobos PA-C Assisting Garbage Pick Up Man Auth orization 1 Special Needs 120mins per terrence documented in this encounter Social History Tobacco [...] in an abandoned building, in an overnight long term, or couch-surfing.) Yes 12/16/2024 Are you worried [...] on file 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 Gender Identity Not on file Sexual Orientation Not on file documented as of this encounter Last Filed Vital Signs Vital Sign Reading Time Taken Comments Blood Pressure 135/65 12/31/2024 10:30 AM CDT Pulse 77 12/31/2024 10:30 AM CDT Temperature 36.1 C (97 F) 12/31/2024 9:22 AM CDT Respiratory Rate 15 12/31/2024 10:30 AM CDT Oxygen Saturation 99% 12/31/2024 10:30 AM CDT Inhaled Oxygen Concentration - - Weight 58.7 kg (129 lb 6.4 oz) 12/31/2024 5:41 A M CDT Height 170.2 cm (5' 7) 12/31/2024 5:41 AM CDT Body Mass Index 20.27 12/31/2024 5:41 AM CDT documented in this encounter Discharge Instructions * Discharge Instructions* Vero Garcia RN - 12/31/2024 7:07 AM CDT HOME CARE FOLLOWING LUMPECTOMY Jere Baird, RTraci Guerra, R. O???Estefany Thompson J. Shaheen APPOINTMENT [...] our locations can be made by calling: #[phone] You will receive a phone call from your surgeon with these results. You will be able to ask questions and receive more in-depth explanation at your post-op appointment. This appointment will also bewhen you discuss further evaluation, treatment, and referral [...] Walk around frequently. You may consider an npwp-bmn-sfprmgw stool-softener. Your Pharmacist can assist you with [...] to discuss with the nurse or physician music library assistant. # There is a surgeon CORE MAKER on weekday evenings and over the weekend [...] Everywhere. * (s) After Anesthesia (Sleep Medicine) (Cypriot) documented in this encounter Medications at Time [...] Admission Source Note - Marcia Bridges APRN BOILER[employer]KER SHIP - 12/16/2024 4:[address] [facility] [address] [facility] [address] Primary Provider: Donna Lamas MD (Inactive) Pre-op Performing Provider: Marcia Bridges APRN CNP Dec 16, 2024 12/16/2024 Surgical Information What procedure is being done? pre op Facility or Hospital where procedure/surgery will be performed: [facility] Who is doing the procedure / surgery? dr ross Date of surgery / procedure: december 31 Time of surgery / procedure: 5 Where do you plan to recover after surgery? at home with family Fax number for surgical facility: Note does not need to be faxed, will be available electronically in [employer]. Assessment & Plan The proposed surgical procedure is considered LOW risk. Preop general physical exam Malignant neoplasm of upper-inner quadrant of right breast in female, estrogen receptor positive (H) Kasie is a 59 year old female with right breast invasive ductal carcinoma, grade 2, ER +, VT +, measuring 2 cm (mammography) at 3:00 [...] invasive ductal carcinoma, grade 2, ER +, VT +, measuring 2 cm (mammography) at 3:00 [...] list of medicines including herbal treatments and zohs-bhs-nqtiete medications. Advised patient to inform insurance company [...] declined at this time. Preoperative Review of PRESIDENT PRACTICING UROLOGIST PRESIDENT PRACTICING UROLOGIST reviewed - no record of controlled substances [...] lymph node biopsy Surgeon: Lynn Ho MD Garbage Pick Up Man(s): Ranjana Villalobos PA-C The Physician Garbage Pick Up Man was medically necessary for their expertise in prepping, suctioning, suturing and retraction. Anesthesia: general Estimated blood loss: Complications: 50 cc none Specimens: ID Type Source Tests Collected by Time Destination 1 : RIGHT BREAST LUMPECTOMY Lumpectomy Breast, Right SURGICAL PATHOLOGY EXAM Lynn Ho MD 12/31/2024 8:12 AM 2 : Right sentinel lymph node #1 & #2 Tissue Lymph Node(s), [place] SURGICAL PATHOLOGY EXAM Lynn Ho MD 12/31/2024 8:23 AM 3 : Right sentinel lymph node #3 Tissue Lymph Node(s), [place] SURGICAL PATHOLOGY EXAM Jacqueline Ho MD 12/31/2024 [...] sponge, instrument, and needle counts were correct. [place] Node Biopsy for Breast Cancer - Right [...] Ho MD - 12/31/2024 9:[address] [facility] Brief Operative Note Pre-operative diagnosis: Breast cancer, [...] node #1 & #2 Tissue Lymph Node(s), [place] SURGICAL PATHOLOGY EXAM Lynn Ho MD 12/31/2024 8:23 AM 3 : Right sentinel lymph node #3 Tissue Lymph Node(s), [place] SURGICAL PATHOLOGY EXAM Jacqueline Ho MD 12/31/2024 [...] Description 03/20/2025 2:30 PM CDT Ancillary Procedure [address] [place] [address] Wilma Carrasco MD [address] [place] [address] documented as of this encounter Procedures [...] See Scanned Result 01/17/2025 9:00 AM CDT Shot Stats Lumpectomy RIGHT BREAST STRUCTURE / Unknown 12/31/2024 8:12 AM CDT 01/08/2025 4:17 PM CDT us Lynn Ho MD LAB - [facility] Final Result Shot Stats [address] [place] [address], [facility] [phone] * (ABNORMAL) Surgical Pathology Exam (12/31/2024 8:12 AM CDT) Case Report Surgical Pathology Report Case: [id number] Authorizing Provider: Lynn Ho MD Collected: 12/31/2024 08:12 AM Ordering Location: [facility] Received: 12/31/2024 08:21 AM Main OR Pathologist: Sanam Mccray MD Intraop: Leda Rogers MD Specimens: A) - Breast, Right, RIGHT BREAST LUMPECTOMY B) - Lymph Node(s), [place], Right sentinel lymph node #1 & #2 C) - Lymph Node(s), [place], Right sentinel lymph node #3 D) - [...] negative for carcinoma. 01/02/2025 4:00 PM CDT [facility] LABORATORY at 1600 CDT Synoptic Checklist INVASIVE [...] Examined (sentinel and non-sentinel): 6 Number of [place] Nodes Examined: 6 pTNM CLASSIFICATION (AJCC 8th [...] mm from anterior margin (gross examination only). Lead Rogers MD on 12/31/2024 at 8:32 AM 01/02/2025 4:00 PM CDT [facility] LABORATORY at 0834 CDT Gross Description A(1). [...] Anterior Black - Posterior Yellow - Medial [place] - Lateral The specimen is sectioned from [...] representatively sampled as follows (reference specimen diagragm): A1-account maintenance representative sections of slice 1, lateral end-perpendicular sections A2-A4-slice 2, trisected A5-account maintenance representative section of slice 3 to include mass A6-A8-slice 4 to include mass, trisected S5-G95-hczxd 5 to include mass, quadrisected I71-C82-tdkij 6 to include mass, trisected Q50-E26-wrcouatbtj tive sections of slice 7 K63-ddijnyxhktqgsf section of slice 8 A19- account maintenance representative sections of slice 10, medial end - perpendicular sections Per EPIC, the radiographic findings are as follows: Imaging reviewed: MRI/Ultrasound Findings: right breast, 3 o'clock position, 4 cm from nipple, 2.0 cm size Expected Clip/Marker: Coil shaped clip Time collected: 811 Time in formalin: 833 B(2). Lymph Node(s), [place], Right sentinel lymph node #1 & #2: [...] pathology lab at 924) C(3). Lymph Node(s), [place], Right sentinel lymph node #3: The specimen [...] cassette. Time collected: 834 Time in formalin: 924 D(4). Breast, Right, RIGHT BREAST LUMPECTOMY: The [...] Grosser) Time collected: 845 Time in formalin: 924 E(5). Breast, Right, RIGHT BREAST LUMPECTOMY: The [...] submitted entirely and sequentially in 5 cassettes. [place]-new margin aspect of specimen (inked by surgeon) Black-opposing aspect of specimen (inked by Grosser) Time collected: 0848 Time in formalin: 0925 (Tammie GM Hart (ASCP) 12/31/2024 9:41 AM 01/02/2025 4:00 PM T LABORATORY Microscopic Description Microscopic examination was performed. 01/02/2025 4:00 PM CDT LABORATORY MCRS Yes(A) N/A 01/02/2025 4:00 PM T LABORATORY Performing Labs The technical component of this testing was completed at [facility]. Stain controls for all stains resulted within this report have been reviewed and show appropriate reactivity. 01/02/2025 4:00 PM CDT LABORATORY Case Images 01/02/2025 4:00 PM T LABORATORY Lumpectomy RIGHT BREAST STRUCTURE / Unknown [...] QUINTANILLA - [facility]RILL Final Result LABORATORY [facility] [address] 1st floor, [address] [place] [address], [facility] [phone] LABORATORY [facility] [address] [facility] (1st floor, no room number) [place] [address], [facility] documented in this encounter Visit Diagnoses Diagnosis Malignant neoplasm of upper-inner quadrant of right breast in female, estrogen receptor positive (H)- Primary Breast cancer, stage 1, estrogen receptor positive, [...] $Given 12/31/2024 10:45 AM CDT 650 mg BUPivacaine (MARCAINE) 0.5% injection PF PRN, Starting on Mon12/31/24 at 0904, Intra-procedure $Given 12/31/2024 9:04 AM CDT 30 mLs Operative Site/Surgical Site dexAMETHasone (DECADRON) injection 4 mg 4 mg, [...] Bag 12/31/2024 7:11 AM CDT 10 mL/hr methylene blue (PROVAYBLUE) 5 mg/mL injection PRN, Starting on Mon12/31/24 at 0744, Intra-procedure $Given 12/31/2024 7:44 AM CDT 4 mLs Operative Site/Surgical Site naloxone (NARCAN) injection 0.1 mg 0.1 mg, [...] Phase ll sodium chloride 0.9% (bottle) irrigation PRN, Starting on Mon12/31/24 at 0857, Intra-procedure $Given 12/31/2024 8:57 AM CDT 200 mLs Operative Site/Surgical Site documented in this encounter Active and Recently [...] Pre-procedure 0731 ($Given - Provi fortunato: Ashley Wright, KRUPA GAITAN) Continuous Medication Order 12/29/2024 12/30/2024 12/31/2024 lactated [...] 0951 ($Given - Provi fortunato: Vero Garcia RUDI)1015 ($Given - Provider: Maty Hammond RN)1030 ($Given [...] ll documented in this encounter Care Teams Customer Resource Specialist Relationship Specialty Start Date End Date Donna Lamas MD PCP - General Family Practice 01/25/12 Rosa Isela Mae PA-C [address] [facility] [address] [place] [address] Physician Garbage Pick Up Man caddy/caddie supervisor 10/28/24 Rosa Isela Mae PA-C [address] [facility] [address] [place] [address] Assigned OBGYN Provider 11/10/24 Wilma Carrasco MD [address] [place] [phone] Physician Hematology & Oncology 11/27/24 [facility] [address] [place] [address] Assigned Surgical Provider 12/11/24 documented as of this encounter
--- OUTSIDE RECORDS SUMMARY | 2025-01-15 13:00 | XMS_ITS | Encounter Summary ---
Author Organization [place] Address [address] [facility] [place] [address] Care Team Providers Care Retail Sales Consultant Name Role Phone Donna Lamas MD Primary Care Provider Unavailab Rosa Isela Brown PA-C Unavailable Rosa Isela Mae PA-C Unavailable Wilma Carrasco MD Unavailable [phone] Lynn Ho MD Unavailable [phone] Marcia Bridges APRN [employer]SEMBLER [employer] Unavailable Encounter Details Date Type Department Care Team (Late st Contact Info) Description 01/15/2025 1:00 PM CDT Office Visit [facility] [place] [address] [facility] [place] [address] Lynn Ho MD [address] [place] [address] Breast cancer, stage 1, estrogen receptor positive, right (H) (Primary Dx) Social History Tobacco Use Types Packs/Day Years Used Date Smoking Tobacco: Every Day Cigarettes Smokeless Tobacco: Never Tobacco Cessation:Ready to Q uit: Yes; Counseling Given: Yes Alcohol Use Standard Drinks/Week Comments Never 0 [...] Date Recorded Do you have housing? 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 Gender Identity Not on file Sexual Orientation Not on file documented as of this encounter Last Filed Vital Signs Vital Sign Reading Time Taken Comments Blood Pressure 118/86 01/15/2025 1:04 PM CDT Pulse 71 01/15/2025 1:04 PM CDT Temperature - - Respiratory Rate 16 01/15/2025 1:04 PM CDT Oxygen Saturation 98% 01/15/2025 1:04 PM CDT Inhaled Oxygen Concentration - - Weight 58.5 kg (129 lb) 01/15/2025 1:04 PM CDT Height 170.2 cm (5' 7) 01/15/2025 1:04 PM CDT Body Mass Index 20.2 01/15/2025 1:04 PM CDT documented in this encounter Progress Notes * Lynn Ho MD - 01/15/2025 1:00 PM CDT [facility] GENERAL SURGERY FOLLOW UP Subjective: Kasie is here for her first postoperative visit. She underwent a right lumpectomy and SNL. Todayshe tells me she is doing quite well. She currently has minimal pain, she is eating a normal diet and her bowel movements are normal. Having some numbness and tingling at right upper inner arm. Objective: Chest: Right breast with small seroma underneath incision, incision well approximated without induration. Numbness and tingling to inner arm on right. Plan: Activity limitations reviewed RTC if arm nerve pain does not improve after 6 months. Lynn Ho MD Please route or send letter to: Primary Care Provider (PCP) documented in this encounter Plan of Treatment Upcoming Encounters Date Type Department Care Team (Late st Contact Info) Description 03/20/2025 2:30 PM CDT Ancillary Procedure [address] [place] [address] Wilma Carrasco MD [address] [place], [place] [phone] documented as of this encounter Visit Diagnoses Diagnosis Breast cancer, stage 1, estrogen receptor positive, right (H)- Primary documented in this encounter Care Teams Retail Sales Consultant Relationship Specialty Start Date End Date Donna Lamas MD PCP - General Family Practice 01/25/12 Rosa Isela Mae PA-C [address] [facility] [address] [place] [address] Physician Router Operator furnace operator and tender 10/28/24 Rosa Isela Mae PA-C [address] [facility] [address] [place] [address] Assigned OBGYN Provider 11/10/24 Wilma Carrasco MD [address] [place] [address] Physician Hematology & Oncology 11/27/24 Lynn Ho MD [address] [place], [place] [address] Assigned Surgical Provider 12/11/24 Marcia Bridges APRN [employer] [address] [place], [place] [address] Assigned PCP 01/10/25 documented as of this encounter
--- OUTSIDE RECORDS SUMMARY | 2025-01-21 14:00 | XMS_ITS | Encounter Summary ---
Author Organization [facility] Address [address] [facility] [place] [address] Care Team Providers Care Green Building Design Specialist Name Role Phone Donna Lamas MD Primary Care Provider Unavailab Rosa Isela Brown PA-C Unavailable [phone] Rosa Isela Mae PA-C Unavailable [phone] Wilma Carrasco MD Unavailable [phone] Lynn Ho MD Unavailable [phone] Marcia Bridges APRN PRE SALES TECHNICAL CONSULTANT Unavailable Reason for Referral * Consultation (Routine: Next available opening) - Pending Review Specialty Diagnoses / Procedures Referred By Armida hernandez Referred To Contact Radiation Oncology Diagnoses Malignant neoplasm of right breast in female, estrogen receptor positive, unspecified site of breast (H) Wilma Carrasco MD [address] [place] [address] Phone: tel: fax: [facility] [address] [place] [address] Phone: tel: Referral ID Status Reason Start Date Expiration Date V isits Requested Visits Authorized [id number] Pending Review 01/21/2025 01/21/2026 1 1 Question Answer Preferred Location: External Affiliate Partner External Affiliate Partners: FPA: [facility], .[facility] Non-internal location selection reason: Patient Preference/Choice - breast cancer s/p lumpectomy Scheduling Instructions: Please call to schedule your appointment Class External referral [5] Comments Please be aware that coverage of these services is subject to the terms and limitations of your health insurance plan. Call member services at your health plan with any benefit or coverage questions. External Affiliate Partner Please call to schedule your appointment * Diagnostic Imaging CT Scan (Routine) - Pending Review Specialty Diagnoses / Procedures Referred By Armida hernandez Referred To Contact Radiology. Diagnoses Pulmonary nodules Procedures CT Chest w/o Contrast Wilma Carrasco MD [address] [place] [address] Phone: tel: fax: Referral ID Status Reason Start Date Expiration Date V isits Requested Visits Authorized [id number] Pending Review 01/21/2025 01/21/2026 1 1 * Diagnostic Imaging Dexa (Routine) - Pending Review Specialty Diagnoses / Procedures Referred By Armida hernandez Referred To Contact Radiology. Diagnoses Postmenopausal bone loss Procedures DX Bone Density Wilma Carrasco MD [address] [place] [address] Phone: tel: fax: Referral ID Status Reason Start Date Expiration Date V isits Requested Visits Authorized [id number] Pending Review 01/21/2025 01/21/2026 1 1 Reason for Visit * Reason Comments Oncology Clinic Visit * Consultation (Routine) - Pending Review Specialty Diagnoses / Procedures Referred By Armida hernandez Referred To Contact Medical Oncology Diagnoses Breast cancer (H) Rosa Isela Mae PA-C [address] [address] Phone: tel: fax: Referral ID Status Reason Start Date Expiration Date V isits Requested Visits Authorized [id number] Pending Review 11/25/2024 11/25/2025 1 1 Encounter Details Date Type Department Care Team (Latest Contact Info) Description 01/21/2025 2:00 PM CDT Oncology Visit [facility] [address] [facility] [place] [address] Wilma Carrasco MD [address] [place] [address] Pulmonary nodules (Primary Dx); Malignant neoplasm of right breast in female, estrogen receptor positive, unspecified site of breast (H); Postmenopausal bone loss; Malignant neoplasm of upper-inner quadrant of right breast in female, estrogen receptor positive (H) Social History Tobacco Use Types Packs/Day Years Used Date Smoking Tobacco: Every Day Cigarettes Smokeless Tobacco: Never Tobacco Cessation:Ready to Q uit: Not Asked; Counseling Given: Not Answered Alcohol Use Standard Drinks/Week Comments Never 0 [...] in an abandoned building, in an overnight half-way, or couch-surfing.) Yes 12/16/2024 Are you worried [...] on file 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 Gender Identity Not on file Sexual Orientation Not on file documented as of this encounter Last Filed Vital Signs Vital Sign Reading Time Taken Comments Blood Pressure 107/71 01/21/2025 1:38 PM CDT Pulse 65 01/21/2025 1:38 PM CDT Temperature 36.7 C (98 F) 01/21/2025 1:38 PM CDT Respiratory Rate 16 01/21/2025 1:38 PM CDT Oxygen Saturation 100% 01/21/2025 1:38 PM CDT Inhaled Oxygen Concentration - - Weight 57.9 kg (127 lb 11.2 oz) 01/21/2025 1:38 PM CDT Height 167 cm (5' 5.75) 01/21/2025 1:38 PM CDT Body Mass Index 20.77 01/21/2025 1:38 PM CDT documented in this encounter Progress Notes * Wilma Carrasco MD - 01/21/2025 2:00 PM CDT Oncology consultation Name: Kasie Treviño : 1965 Requesting physician:Rosa Isela Mae PA-C [address] [address] Reason for consultation: Breast Cancer HPI: Kasie Treviño is a 59 year old female whom I was asked to see by Rosa Isela Mae PA-C and Dr. Ho for a recently diagnosed right pT2N0 hormone receptor positive, HER2 negative breast cancer. She presented with a right breast mass which was confirmed on diagnostic imaging. Biopsy revealed invasive ductal carcinoma, hormone receptor positive, HER2 negative. She was seen by surgery and a breast MRI revealed a 1.9 cm mass in the right breast with noted right internal mammary and pericardiac lymph nodes as well as a 9 mm right middle lobe lung nodule. A CT scan of the chest was performed in follow-up which reveale a 5 x 8 mm right middle lobe nodule 4 x 6 mm right middle lobe nodule with 3 mm right middle lobe nodule and adjacent right major fissure nodular thickening. There is no abnormalities noted in the mediastinum and no pathologically enlarged thoracic lymph nodes seen. She was noted to have small airway infection and/inflammation in the lingula. Of note she is an active tobacco user but is cut down to 6 cigarettes a day. On December 31, 2024 she underwent a right lumpectomy and final pathology revealed pT2N0 grade 2hormone receptor positive, HER2 negative breast cancer. Oncotype 17. She is healing well from surgery. Of note given the significant family history of ovarian cancer she underwent negative genetic testing in 2019. SH: Age at first delivery:17 Menarche: 16 Menopause: 49 HRT/OCPs: none FH: mother and maternal aunt with ovarian cancer. Negative genetics Review of systems: All other systems reviewed and are negative except for what is described in the history of present illness. PMH: Patient Active Problem List Diagnosis Date Noted Malignant neoplasm of upper-inner quadrant of right breast in female, estrogen receptor positive (H) 11/27/2024 Priority: Medium History reviewed. No pertinent past medical history. Medications: Current Outpatient Medications: acetaminophen (TYLENOL) 325 MG tablet, Take 2 tablets (650 mg) by mouth every 4 hours as needed formild pain., Disp: 50 tablet, Rfl: 0 Allergies: Allergies Allergen Reactions Indomethacin GI Disturbance Social history: Social History Socioeconomic History Marital status: Spouse name: Not on file Number of children: Not on file Years of education: Not on file Highest education level: Not on file Occupational History Not on file Tobacco Use Smoking status: Every Day Types: Cigarettes Smokeless tobacco: Never Vaping Use Vaping status: Never Used Substance and Sexual Activity Alcohol use: Never Drug use: Never Sexual activity: Not Currently control/protection: Post-menopausal Other Topics Concern Not on file Social History Narrative Not on file Social Drivers of Health Financial Resource Strain: Low Risk (12/16/2024) Financial Resource Strain Within the past 12 months, have you or your family members you live with been unable to get utilities (heat, electricity) when it was really needed?: No Food Insecurity: Low Risk (12/16/2024) Food Insecurity Within the past 12 months, did you worry that your food would run out before you got money to buy more?: No Within the past 12 months, did the food you bought just not last and you didn???t have money to getmore?: No Transportation Needs: Low Risk (12/16/2024) Transportation Needs Within the past 12 months, has lack of transportation kept you from medical appointments, getting your medicines, non-medical meetings or appointments, work, or from getting things that you need?: No Physical Activity: Not on file Stress: Not on file Social Connections: Unknown (08/21/2021) Received from [employer] [facility] Social Connections Frequency of Communication with Friends and Family: Not on file Interpersonal Safety: Low Risk (12/31/2024) Interpersonal Safety Do you feel physically and emotionally safe where you currently live?: Yes Within the past 12 months, have you been hit, slapped, kicked or otherwise physically hurt by someone?: No Within the past 12 months, have you been humiliated or emotionally abused in other ways by your partner or ex-partner?: No Housing Stability: Low Risk (12/16/2024) Housing Stability Do you have housing? : Yes Are you worried about losing your housing?: No Family History: Family History Problem Relation Age of Onset Ovarian Cancer Mother 64 Breast Cancer No family hx of Physical exam: Vitals:BP 107/71 Pulse 65 Temp 98 ??F (36.7 ??C) (Oral) Resp 16 Ht 1.67 m (5' 5.75) Wt 57.9 kg (127 lb 11.2 oz) LMP (LMP Unknown) SpO2 100% BMI 20.77 kg/m?? Gen: NAD, pleasant, interactive and answering questions appropriately, PS 0 HEENT: Normocephalic atraumatic, sclera anicteric Neck: Full range of motion Lungs: No respiratory distress, speaking in full sentences, no coughing Skin: no facial rash noted Psych: normal affect Neuro: normal gait Labs: Lab Results Component Value Date WBC 9.4 12/16/2024 HGB 15.3 12/16/2024 HCT 43.6 12/16/2024 PLT 188 12/16/2024 Radiology: Reviewed and see history of present illness Pathology: Reviewed and see history of present illness Assessment/plan: Kasie Treviño is a 59 year old female whom I was asked to see by Rosa Isela Mae PA-C and Dr. Ho for a recently diagnosed right pT2N0 hormone receptor positive, HER2 negative breast cancer. 1. Breast Cancer: We reviewed her diagnosis, pathology prognosis and treatment options. Pathology confirmed a stage 1 hormone receptor positive HER-2 negative breast cancer. I have placed a referral to radiation oncology to discuss adjuvant radiation and we discussed this schedule and side effects in general details. Given her Oncotype score of 17 I do not recommend adjuvant chemotherapy. We discussed the rationale of anti-hormonal therapy to reduce the risk of cancer recurrence. Both aromataseinhibitors and tamoxifen are approved for use in postmenopausal women. Each is given as one pill daily for 5-10 years. Both tamoxifen and aromatase inhibitors are associated with menopausal symptoms such as hot flashes, mood irritability, insomnia and vaginal dryness. Tamoxifen is associated with cataracts, uterine cancer as well as thromboembolic disease. Aromatase inhibitors are associated withworsening of bone loss and arthralgias. We will get an updated bone density test to help finalize choice of endocrine therapy and I will contact her with this result. She will let me know if she wishes to meet up again after radiation to discuss endocrine therapy in more detail versus just startinga medication. We discussed plans for ongoing follow-up. 2. Lung nodule: We discussed potential etiologies. She is an active smoker. I have ordered a CT scan to be done in March as 3-month follow-up. All of the patient's questions were answered. Return to the office pending decision about endocrine therapy or sooner as needed. Thank you for allowing me to participate in the care of your patient. Please call with any questions. I personally reviewed the recent studies and I explained the rationale of the tests ordered today to the patient. Cancer Staging Malignant neoplasm of upper-inner quadrant of right breast in female, estrogen receptor positive (H) Staging form: Breast, AJCC 8th Edition - Clinical: Stage IA (cT1c, cN0(f), cM0, G2, ER+, IA+, HER2-) - Signed by Lynn Ho MD on 11/27/2024 Orders Placed This Encounter Procedures DX Bone Density CT Chest w/o Contrast Radiation Therapy Referral documented in this encounter Nursing Notes * Sandy Brooks - 01/21/2025 2:00 PM CDT Oncology Rooming Note January 21, 2025 1:42 PM Kasie Treviño is a 59 year old female who presents for: Chief Complaint Patient presents with Oncology Clinic Visit Initial Vitals: BP 107/71 Pulse 65 Temp 98 ??F (36.7 ??C) (Oral) Resp 16 Ht 1.67 m (5' 5.75) Wt 57.9 kg (127 lb 11.2 oz) LMP (LMP Unknown) SpO2 100% BMI 20.77 kg/m?? Estimated body mass index is 20.77 kg/m?? as calculated from the following: Height as of this encounter: 1.67 m (5' 5.75). Weight as of this encounter: 57.9 kg (127 lb 11.2 oz). Body surface area is 1.64 meters squared. No Pain (0) Comment: Data Unavailable No LMP recorded (lmp unknown). Patient is postmenopausal. Allergies reviewed: Yes Medications reviewed: Yes Medications: Medication refills not needed today. Pharmacy name entered into [employer]: [id number] - [place], [place] - [address] [place] [address] [address] [facility] Frailty Screening: Is the patient here for a new oncology consult visit in cancer care? 2. No PHQ9: Did this patient require a PHQ9?: No Clinical concerns: New Sandy Brooks documented in this encounter Plan of Treatment Upcoming Encounters Date Type Department Care Team (Late st Contact Info) Description 03/20/2025 2:30 PM CDT Ancillary Procedure [address] [place] [address] Wilma Carrasco MD [address] [place] [address] Scheduled Orders Name Type Priority Associated Diagnoses Orde r Schedule DX Bone Density Imaging Routine Postmenopausal bone loss Expected: 01/21/2025 (Approximate), Expires: 01/21/2026 CT Chest w/o Contrast Imaging Routine Pulmonary nodules Expected: 04/08/2025 (Approximate), Expires: 01/21/2026 Scheduled Referrals Name Type Priority Associated Diagnoses Orde r Schedule Radiation Therapy Referral Referral Routine: Next available opening Malignant neoplasm of right breast in female, estrogen receptor positive, unspecified site of breast (H) Expected: 01/21/2025 (Approximate), Expires: 01/21/2026 documented as of this encounter Visit Diagnoses Diagnosis Pulmonary nodules- Primary Other nonspecific abnormal finding of lung field Malignant neoplasm of right breast in female, estrogen receptor positive, unspecified site of breast (H) Postmenopausal bone loss Senile osteoporosis Malignant neoplasm of upper-inner quadrant of right breast in female, estrogen receptor positive (H) documented in this encounter Care Teams Green Building Design Specialist Relationship Specialty Start Date End Date Donna Lamas MD PCP - General Family Practice 01/25/12 Rosa Isela Mae PA-C [address] [address] Physician Accident Investigator nurse rn bsn 10/28/24 Rosa Isela Mae PA-C [address] [address] Assigned OBGYN Provider 11/10/24 Wilma Carrasco MD [address] [place] [id number] Physician Hematology & Oncology 11/27/24 Lynn Ho MD [address] [place] [place], [place] [address] Assigned Surgical Provider 12/11/24 Marcia Bridges APRN CNP [address] [place], [place] [id number] Assigned PCP 01/10/25 documented as of this encounter
--- OUTSIDE RECORDS SUMMARY | 2025-02-08 00:24 | XMS_ITS | Clinical Summary ---
Author Organization [facility] Address [facility] [place] [address] Care Team Providers Care Meals On Wheels Driver Name Role Phone Jesus Moore MD Primary Care Provider [phone] Allergies No known active allergies Medications ibuprofen (ADVIL; MOTRIN) 200 mg tablet Take 2 tablets by mouth 4 times daily if needed. 0 08/31/19 17 Active gabapentin (NEURONTIN) 300 mg capsuleIndicatio ns:Lumbar radiculopathy,DD D (degenerative disc disease), lumbar,S/P lumbar discectomy TAKE 1 CAPSULE BY MOUTH AT BEDTIME 90 Capsule 06/28/20 23 Active traMADoL 50 mg tabletIndication s:Lumbar radiculopathy TAKE 1 TABLET(50 MG) BY MOUTH FOUR TIMES DAILY NEEDED FOR PAIN 120 Tablet 01/24/20 25 Active HYDROcodone-acet aminophen (5-325 mg/tablet)Indica tions:Lumbar radiculopathy,S/ P lumbar discectomy,Lumba r spondylosis Take 1 Tablet by mouth 3 times daily if needed for Pain. Instead of tramadol 12 Tablet 02/08/20 25 Active HYDROcodone-acet aminophen (5-325 mg/tablet)Indica tions:Lumbar radiculopathy,DD D (degenerative disc disease), lumbar,S/P lumbar discectomy Take 1 Tablet by mouth 3 times daily if needed for Pain. Instead of tramadol 18 Tablet 11/19/19 25 025 Discontinued(Re order (E-cancel not sent)) traMADoL 50 mg tabletIndication s:Lumbar radiculopathy TAKE 1 TABLET(50 MG) BY MOUTH FOUR TIMES DAILY NEEDED FOR PAIN 120 Tablet 12/26/19 25 025 Discontinued Active Problems Problem Noted Date Diagnosed Date S/P lumbar discectomy 01/15/2016 Controlled substance agreement broken 2015 Overview (09/20/2016): Dr. Royce Hoff, primary MD: Jesus Moore MD Controlled substance agreement: 03/02/2015, revised 09/20/16. COOPERER query on 12/18/15 was acceptable. UDS in 08/2016 had THC and no tramadol or hydrocodone (was getting 90 and 24 a month respectively)/. We agreed to discontinue the tramadol and make pain clinic referral. T11-12 and T8-9 disk injuries 11/20/2014 Lumbar disc herniation 10/21/2014 Lumbar radicular pain 10/21/2014 Resolved Problems Problem Noted Date Diagnosed Date Resolved Date Thoracic injury 10/21/2014 02/09/2015 SHOULDER SPRAIN 12/30/2015 Encounters Date Type Department Care Team Description 02/07/2025 10:20 AM CDT Office Visit [facility] at [address] [address] Royce Hoff MD Procedure (Right L5-S1 TFESI) 01/23/[address] [place] [address] Royce Hoff MD Refill Request (Tramadol) 01/16/2025 Orders Only [facility] [address] [place] [address] Royce Hoff MD <No scans attached> 01/08/2025 Telephone [facility] [address] [place] [address] Royce Hoff MD Appointment Request 12/25/2024 Refill [facility] [address] [place] [address] Royce Hoff MD Refill Request (Tramadol) 11/27/2024 Refill [facility] [address] [place] [address] Royce Hoff MD Refill Request (Tramadol) 11/18/2024 Telephone [facility] [address] [facility] [place] [address] Royce Hoff MD Refill Request (HYDROcodone-acetamin ophen (5-325 mg/tablet)) 11/18/2024 Telephone [facility] [address] [place] [address] Royce Hoff MD Questions (Schedule a Injection for back /) from Last 3 Months Social History Tobacco Use Types Packs/Day Years Used Date Smoking Tobacco: Light Smoker Cigarettes Last attempted t o quit: 12/24/2015 Smokeless Tobacco: Never Tobacco Cessation:Ready to Q uit: Yes; Counseling Given: Yes Comments:Smoking History Packs/day: <1 Alcohol Use Standard Drinks/Week Comments No 0 (1 standard drink = 0.6 oz pur e alcohol) Alcoholic Drinks/day: 0 Social Connections Answer Date Recorded Frequency of Communication with Friends and Fami ly Not on file 08/21/2021 Financial Resource Strain Answer Date R ecorded Difficulty of Paying Living Expenses Not on file 08/21/2021 Difficulty of Paying Living Expenses Not on file 08/21/2021 Comments No Sex and Gender Information Value Date Recorded Sex Assigned at Not on file 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 Gender Identity Not on file Sexual Orientation Not on file Obstetrics History Last Filed Vital Signs Vital Sign Reading Time Taken Comments Blood Pressure 111/74 01/25/2023 2:28 PM CDT Pulse 72 01/25/2023 2:28 PM CDT Temperature 37 C (98.6 F) 01/25/2023 2:28 PM CDT Respiratory Rate 16 04/09/2015 7:52 AM CDT Oxygen Saturation 98% 01/25/2023 2:28 PM CDT Inhaled Oxygen Concentration - - Weight 64 kg (141 lb 3.2 oz) 01/25/2023 2:28 PM CDT Height 168.3 cm (5' 6.26) 09/11/2019 8:52 AM CS T Body Mass Index 22.61 09/11/2019 8:52 AM BOREMATIC OPERATOR Plan of Treatment Health Maintenance Due Date Last Done Comments Tdap 1977 Depression screening for age 12+ 1978 HIV for age 15-65 1981 Hepatitis C screening for ag e 18-79 1984 Hepatitis B series for 19+ ( 1 of 3 - 19+ 3-dose series) 1985 Pneumococcal series for age 50+ (1 of 2 - PCV) 1985 Tetanus booster 1986 Colonoscopy through age 75 2011 Lipids for age 45-75 2011 Mammogram for age 45-75 2011 Zoster (shingles) series for age 50+ (1 of 2) 2016 BMI (ht and wt on same day) for age 18+ 09/11/2020 09/11/2019, 01/07/2016, 12/02/2015, Additional history exists Pap test for age 21-65 01/27/2023 , 01/28/2020, 09/21/2015, Additional history exists COVID-19 vaccine series ( season) 2024 05/01/2021, 04/03/2021 Influenza Vaccine (Season Ended) 2025 Procedures Procedure Name Priority Date/Time Associated Diagnosis Comments AMB EPIDURAL STEROID INJECTION Routine 02/07/2025 7:58 AM CDT Lumbar radiculopathy S/P lumbar discectomy Lumbar spondylosis PLAQUE MAKER THIN PREP PAP SCREEN IMAGED Routine 01/28/2020 12:00 PM CDT from Last 3 Months or Most Recently Relevant to Health Maintenance Results * PLAQUE MAKER THIN PREP PAP SCREEN IMAGED (01/28/2020 12:00 PM CDT) Case Report Gynecologic Cytology Report Case: [id number] Authorizing Provider: Jenn Tyler PA-C Collected: 01/28/2020 1200 Ordering Location: [facility] Received: 01/29/2020 0920 First Screen: Shikha Key Specimen: PLAQUE MAKER ThinPrep Vial Screening, Cervical/Vaginal 01/30/2020 3:26 PM CDT [facility] INTERPRETATION/ RESULT NEGATIVE FOR INTRAEPITHELIAL LESION OR MALIGNANCY (NIL) (none) 01/30/2020 3:26 PM CDT [facility] at 1526 CDT SPECIMEN ADEQUACY Satisfactory for evaluation No endocervical component seen 01/30/2020 3:26 PM CDT [facility] HPV REQUEST HPV and PAP 01/30/2020 3:26 PM CDT [facility] Last Pap Date 09/21/2015 01/30/2020 3:26 PM CDT [facility] Last Pap Result NIL 0 3:26 PM CDT [facility] Menstrual Status 01/30/2020 3:26 PM CDT [facility] Comment:menopause Additional Information 01/30/2020 3:26 PM CDT [facility] Comment: Interpreted at [facility] - [address], [place] [address] Automated Review Successful 01/30/2020 3:26 PM CDT [facility] Comment:Specimen processed s uccessfully by automated electronic gluer device, [employer] System, [employer] ANCILLARY TESTING PLAQUE MAKER HPV Ordered, Please see separate report 01/30/2020 3:26 PM CDT [facility] Note The pap test is a screening technique, not a diagnostic procedure. It is used primarily to screen for squamous cancers and precursor lesions. Published studies have shown that it is subject to both false negative and false positive results. The pap test should not be used as the sole means to diagnose or exclude pre-malignant and malignant lesions. 01/30/2020 3:26 PM CDT [facility] Other (Cervical/Vagina l) 01/28/2020 12:00 PM CDT 01/29/2020 9:20 AM CDT november Jayson [facility] PATHOLOGY/CYTOLOGY Final R esult [facility] [address] [place] [address], [place] from Last 3 Months or Most Recently Relevant to Health Maintenance Insurance BLUE [facility] Advance Directives * Full Code (Latest Code Status on File) Date Activated Date Inactivated Comments 04/08/2015 6:47 PM 04/09/2015 5:50 PM * Full Code Date Activated Date Inactivated Comments 04/08/2015 10:55 AM 04/08/2015 6:47 PM Care Teams Meals On Wheels Driver Relationship Specialty Start Date End Date Jesus Moore MD [address] [place] [id number] PCP - General Family Practice 04/03/15
--- OUTSIDE RECORDS SUMMARY | 2025-02-08 00:24 | XMS_ITS | Encounter Summary ---
Author Organization [place] Address [address] [facility] [place] [address] Care Team Providers Care Police Lieutenant Precinct Name Role Phone Donna Lamas MD Primary Care Provider Unavailab Rosa Isela Brown PA-C Unavailable [phone] Rosa Isela Mae PA-C Unavailable Wilma Carrasco MD Unavailable [phone] Lynn Ho MD Unavailable [phone] Reason for Visit * Reason Onset Date Comments Surgical Followup 01/01/2025 S/p Right mitra st radiofrequency tag localized lumpectom right axillary sentinel lymph node biopsy 12/31/24. 1st refill. Encounter Details Date Type Department Care Team (Late st Contact Info) Description 01/01/2025 [facility] [place] [address] [facility] [place] [address] Lynn Ho MD [address] [place], [place] [id number] Surgical Followup (S/p Right breast radiofrequency tag localized lumpectom right axillary sentinel lymph node biopsy 12/31/24. 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 Ranjana Villalobos PA-C * Telephone Encounter - Elle Beltran RN - 01/01/2025 1:14 PM CDT Surgery Type/Date: s/p Right breast tag loc lumpectomy, Right axillary sentinel lymph node bx. 12/31/24. Surgeon: Dr. Ho Patient medication request: oxycodone 5mg Refill request: first Type/Amount of pain medication in current use: oxycodone 5 mg - 2 tabs every 4 hours yesterday, 1 tab oxycodone this morning, has one tab left. Taking Tylenol in between doses. Ice to affected areas. Patient Symptoms: Patient tells me that she does not feel that one tab of oxycodone with the Tylenol is adequately relieving her pain. Rates pain at 12/28. Discussed taking 1 tab oxycodone with the Tylenol and alternating with ibuprofen 600mg every 6 hours prn. She will continue with sports bra 13/03 for the first 5 days and ice the affected areas. She is taking the senokot as prescribed. Ok to use Miralax Q day in addition to stool softener if needed. Patient would like rx to go to [facility] in [facility]. * Telephone Encounter - Camila Ding - 01/01/2025 12:35 PM CDT Name of caller: Patient Reason for Call: Pt calling to request more pain meds Surgeon: Lynn Ho MD Recent Surgery: Yes. If yes, when & what type: 12/31, Right breast radiofrequency tag localized lumpectomy right axillary sentinel lymph node biopsy Best phone number to reach pt at is: [phone] Ok to leave a message with medical info? Yes. Pharmacy preferred (if calling for a refill): [facility] documented in this encounter Plan of Treatment Upcoming Encounters Date Type Department Care Team (Late st Contact Info) Description 03/20/2025 2:30 PM CDT Ancillary Procedure [address] [place] [address] Wilma Carrasco MD [address] [place] [address] documented as of this encounter Visit Diagnoses Diagnosis Malignant neoplasm of upper-inner quadrant of right breast in female, estrogen receptor positive (H) documented in this encounter Care Teams Police Lieutenant Precinct Relationship Specialty Start Date End Date Donna Lamas MD PCP - General Family Practice 01/25/12 Rosa Isela Mae PA-C [address] [address] Physician Traffic Counter dispatcher radioactive waste disposal 10/28/24 Rosa Isela Mae PA-C [address] [address] Assigned OBGYN Provider 11/10/24 Wilma Carrasco MD [address] [place] [address] Physician Hematology & Oncology 11/27/24 Lynn Ho MD [address] [place] [address] Assigned Surgical Provider 12/11/24 documented as of this encounter
--- OUTSIDE RECORDS SUMMARY | 2025-02-08 00:24 | XMS_ITS | Encounter Summary ---
Author Organization [place] Address [address] [facility] [place] [address] Care Team Providers Care Electronic Technician Name Role Phone Donna Lamas MD Primary Care Provider Unavailab Rosa Isela Brown-Luis Unavailable [phone] Rosa Isela Mae PA-C Unavailable Wilma Carrasco MD Unavailable Lynn Ho MD Unavailable [phone] Marcia Bridges APRN, CNP Unavailable [phone] Encounter Details Date Type Department Care Team (Late st Contact Info) Description 01/03/2025 Results Follow-Up [facility] Services - Surgical Specialties Service Line [address] [place] [address] Lynn Ho MD [address] [place] [address] Social History Tobacco Use Types Packs/Day Years [...] in an abandoned building, in an overnight usp, or couch-surfing.) Yes 12/16/2024 Are you worried [...] on file 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 Gender Identity Not on file Sexual Orientation Not on file documented as of this encounter Plan of Treatment Upcoming Encounters Date Type Department Care Team (Late st Contact Info) Description 03/20/2025 2:30 PM CDT Ancillary Procedure [address] [place] [address] Wilma Carrasco MD [address] [place], [place] [id number] documented as of this encounter Visit Diagnoses Not on filedocumented in this encounter Care Teams Electronic Technician Relationship Specialty Start Date End Date Donna Lamas MD PCP - General Family Practice 01/25/12 Rosa Isela Mae PA-C [address] [facility] [address] [place], [place] [address] Physician Chocolate Dipper financial analyst intern 10/28/24 Rosa Isela Mae PA-C [address] [facility] 100 [place] [address] Assigned OBGYN Provider 11/10/24 Wilma Carrasco MD [address] [place], [place] [address] Physician Hematology & Oncology 11/27/24 [facility] [address] [place], [place] [address] Assigned Surgical Provider 12/11/24 Marcia Bridges APRN [facility] [address] [place], [place] [address] Assigned PCP 01/10/25 documented as of this encounter
--- OUTSIDE RECORDS SUMMARY | 2025-02-08 00:24 | XMS_ITS | Encounter Summary ---
Author Organization [place] Address [address] [facility] [place] [address] Care Team Providers Care Coffee Sommelier Name Role Phone Donna Lamas MD Primary Care Provider Unavailab Rosa Isela Brown-Luis Unavailable [phone] Rosa Isela Mae PA-C Unavailable [phone] Wilma Carrasco MD Unavailable [phone] Kaylie Bacon MD Unavailable [phone] Reason for Referral * Diagnostic Imaging CT Scan (Routine) - Closed Specialty Diagnoses / Procedures [facility] Referred To Contact Radiology. Diagnoses Pulmonary nodules Procedures CT Chest w/o Contrast Kaylie Bacon MD [address] [place] [address] Phone: tel: fax: [facility] [address] [facility] [address] [place] [address] Phone: tel: fax: Referral ID Status Reason Start Date Expiration Date Visits Re quested Visits Authorized [id number] Closed 12/27/2024 12/27/2025 1 1 * Diagnostic Imaging CT Scan (Routine) - Authorized Specialty Diagnoses / Procedures Referred By [facility] t Referred To Contact Radiology. Diagnoses Pulmonary nodules Procedures CT Chest w/o Contrast Kaylie Bacon MD [address] [place] [address] Phone: tel: fax: [facility] [address] [place] [address] Phone: tel: fax: Referral ID Status Reason Start Date Expiration Date V isits Requested Visits Authorized [id number] Authorized 12/12/2024 12/12/2025 1 1 Encounter Details Date Type Department Care Team (Late st Contact Info) Description 12/12/2024 Telephone [facility] [place] 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 Results are similar to previous imaging and we will plan to proceed as already discussed with lumpectomy and SLNB on 12/31. Left patient a message with my personal number if she has questions. I also recommend a CT chest due to her smoking history of 0.9 cm nodule on MRI Kaylie Bacon MD * Addendum Note - Kaylie Bacon MD - 12/12/2024 1:49 PM CDTAddended by: KAYLIE BACON on: 12/12/2024 01:57 PM Modules accepted: Orders * Addendum Note - Kaylie Bacon MD - 12/12/2024 1:49 PM CDTAddended by: KAYLIE BACON on: 12/27/2024 10:09 AM Modules accepted: Orders documented in this encounter Plan of Treatment Upcoming Encounters Date Type Department Care Team (Late st Contact Info) Description 03/20/2025 2:30 PM CDT Ancillary Procedure [address] [place] [address] Wilma Carrasco MD [address] [place] [address] Scheduled Orders Name Type Priority Associated Diagnoses Orde r Schedule CT Chest w/o Contrast Imaging Routine Pulmonary nodules Expected: 12/12/2024 (Approximate), Expires: 12/12/2025 documented as of this encounter Results * CT Chest w/o [...] CDT EXAM: CT CHEST W/O CONTRAST LOCATION: [facility] DATE: 12/27/2024 INDICATION: Recently diagnosed right breast [...] 12/27/2024 EXAM: CT CHEST W/O CONTRAST LOCATION: [facility] DATE: 12/27/2024 INDICATION: Recently diagnosed right breast [...] breast cancer. No pathologically enlarged thoraciclymph nodes. Kaylie Bacon MD IMG CT ORDERABLES Final Resul t documented in this encounter Visit Diagnoses Diagnosis Pulmonary nodules- Primary Other nonspecific abnormal finding of lung field Pulmonary nodules Other nonspecific abnormal finding of lung field documented in this encounter Care Teams Coffee Sommelier Relationship Specialty Start Date End Date Donna Lamas MD PCP - General Family Practice 01/25/12 Rosa Isela Mae PA-C [address] [address] Physician Application Services Manager patrol judge 10/28/24 Rosa Iseal Mae PA-C [address] [facility] 100 [place] [address] Assigned OBGYN Provider 11/10/24 Wilma Carrasco MD [address] [place] [id number] Physician Hematology & Oncology 11/27/24 Kaylie Bacno MD [address] [place], [place] [address] Assigned Surgical Provider 12/11/24 documented as of this encounter
--- OUTSIDE RECORDS SUMMARY | 2025-02-08 00:25 | XMS_ITS | Encounter Summary ---
Author Organization [place] Address [address] [facility] 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 Gender Identity Not on file Sexual Orientation Not on file documented as of this encounter Plan of Treatment Upcoming Encounters Date Type Department Care Team (Late st Contact Info) Description 03/20/2025 2:30 PM CDT Ancillary Procedure [address] [place] [address] Wilma Carrasco MD [address] [place] [id number] documented as of this encounter Visit Diagnoses Not on filedocumented in this encounter Care Teams Early Childhood Assistant Relationship Specialty Start Date End Date Donna Lamas MD PCP - General Family Practice 01/25/12 Rosa Isela Mae PA-C [address] [facility] [address] [place] [address] Physician Bicycle Rental Clerk grain elevator operator 10/28/24 Rosa Isela Mae PA-C [address] [facility] [address] [place] [address] Assigned OBGYN Provider 11/10/24 Wilma Carrasco MD [address] [place], [place] [address] Physician Hematology & Oncology 11/27/24 [facility] [address] [place], [place] [address] Assigned Surgical Provider 12/11/24 documented as of this encounter
--- OUTSIDE RECORDS SUMMARY | 2025-02-08 00:25 | XMS_ITS | Encounter Summary ---
Author Organization [place] Address [address] [facility] [place] [address] Care Team Providers Care Genetics Nurse Name Role Phone Donna Lamas MD Primary Care Provider Unavailab Rosa Isela Brown-Luis Unavailable [phone] Rosa Isela Mae PA-C Unavailable Wilma Carrasco MD Unavailable [facility] Unavailable Marcia Bridges APRN INSIDE SALES PROFESSIONAL Unavailable Reason for Visit * Reason Onset Date Comments *-*INCOMING RECORDS*-* 01/21/2025 Breast ca ncer (H) [C50.919] Encounter Details Date Type Department Care Team (Late st Contact Info) Description 01/21/2025 PRE VISIT [facility] [address] [place] [address] Wilma Carrasco MD [address] [place] [address] *-*INCOMING RECORDS*-* (Breast cancer (H) [C50.919]) Social History Tobacco Use Types Packs/Day Years [...] in an abandoned building, in an overnight chcf, or couch-surfing.) Yes 12/16/2024 Are you worried [...] on file 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 Gender Identity Not on file Sexual Orientation Not on file documented as of this encounter Miscellaneous Notes * Telephone Encounter - Yossi Mcclellan - 12/18/2024 12:06 PM CDT RECORDS STATUS - BREAST RECORDS REQUESTED FROM: [facility] - Internal records DATE REQUESTED: 12/18 documented in this encounter Plan of Treatment Upcoming Encounters Date Type Department Care Team (Late st Contact Info) Description 03/20/2025 2:30 PM CDT Ancillary Procedure [address] [place] [address] Wilma Carrasco MD [address] [place], [place] [address] documented as of this encounter Visit Diagnoses Not on filedocumented in this encounter Care Teams Genetics Nurse Relationship Specialty Start Date End Date Donna Lamas MD PCP - General Family Practice 01/25/12 Rosa Isela Mae PA-C [address] [facility] 100 [place] [address] Physician Tire Changer facility environmental technician 10/28/24 Rosa Isela Mae PA-C [address] [facility] [address] [place] [address] Assigned OBGYN Provider 11/10/24 Wilma Carrasco MD [address] [place], [place] [address] Physician Hematology & Oncology 11/27/24 Lynn Ho MD [address] [place] [address] Assigned Surgical Provider 12/11/24 Marcia Bridges APRN INSIDE SALES PROFESSIONAL [address] [place] [address] Assigned PCP 01/10/25 documented as of this encounter
--- OUTSIDE RECORDS SUMMARY | 2025-02-08 00:25 | XMS_ITS | Encounter Summary ---
Author Organization [place] Address [address] [place] [address] Care Team Providers Care Digital Forensics Examiner Name Role Phone Donna Lamas MD Primary Care Provider Unavailab Rosa Isela Brown PA-C Unavailable [phone] Rosa Isela Mae PA-C Unavailable [phone] Wilma Carracso MD Unavailable [phone] Lynn Ho MD Unavailable Marcia Bridges APRN, CNP Unavailable Encounter Details Date Type Department Care Team (Latest Contact Info) Description 01/21/2025 Travel Social History Tobacco Use Types Packs/Day [...] in an abandoned building, in an overnight penitentiary, or couch-surfing.) Yes 12/16/2024 Are you worried [...] on file 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 Gender Identity Not on file Sexual Orientation Not on file documented as of this encounter Plan of Treatment Upcoming Encounters Date Type Department Care Team (Late st Contact Info) Description 03/20/2025 2:30 PM CDT Ancillary Procedure [address] [place] [address] Wilma Carrasco MD [address] [place] [address] documented as of this encounter Visit Diagnoses Not on filedocumented in this encounter Care Teams Digital Forensics Examiner Relationship Specialty Start Date End Date Donna Lamas MD PCP - General Family Practice 01/25/12 Rosa Isela Mae PA-C [address] [facility] [address] [place] [address] Physician Grooving Lathe Tender leather toggler 10/28/24 Rosa Isela Mae PA-C [address] [facility] [address] [place] [address] Assigned OBGYN Provider 11/10/24 Wilma Carrasco MD [address] [place], [place] [address] Physician Hematology & Oncology 11/27/24 Lynn Ho MD [address] [place], [place] [address] Assigned Surgical Provider 12/11/24 Marcia Bridges APRN [facility] [address] [place] [address] Assigned PCP 01/10/25 documented as of this encounter
--- OUTSIDE RECORDS SUMMARY | 2025-02-08 00:25 | XMS_ITS | Encounter Summary ---
Author Organization [place] Address [address] [facility] [place] [address] Care Team Providers Care Fisher Sponge Hooking Name Role Phone Donna Lamas MD Primary Care Provider Unavailab Rosa Isela Brown PA-C Unavailable Rosa Isela Mae PA-C Unavailable Wilma Carrasco MD Unavailable Lynn Ho MD Unavailable Encounter Details Date Type Department Care Team (Late st Contact Info) Description 12/27/2024 Telephone [facility] [place] [address] [facility] [place] [address] Lynn Ho MD [address] [place] [address] Social History Tobacco Use Types [...] in an abandoned building, in an overnight jail, or couch-surfing.) Yes 12/16/2024 Are you worried [...] on file 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 3 small nodule found in the right lung. Given lack of axillary manjinder involvement chance of metastatic breast cancer is low. Left a message advising that we should proceed with her lumpectomy but that I would discuss findings with her oncologist. Lynn Ho MD documented in this encounter Plan of Treatment Upcoming Encounters Date Type Department Care Team (Late st Contact Info) Description 03/20/2025 2:30 PM CDT Ancillary Procedure [address] [place] [address] Wilma Carrasco MD [address] [place] [address] documented as of this encounter Visit Diagnoses Not on filedocumented in this encounter Care Teams Fisher Sponge Hooking Relationship Specialty Start Date End Date Donna Lamas MD PCP - General Family Practice 01/25/12 Rosa Isela Mae PA-C [address] [address] Physician Ferruler mergers and acquisitions attorney 10/28/24 Rosa Isela Mae PA-C [address] [address] Assigned OBGYN Provider 11/10/24 Wilma Carrasco MD 9 [place] [address] Physician Hematology & Oncology 11/27/24 Lynn Ho MD [facility] [place] [address] Assigned Surgical Provider 12/11/24 documented as of this encounter
--- OUTSIDE RECORDS SUMMARY | 2025-02-08 00:25 | XMS_ITS | Clinical Summary ---
Author Organization [facility] Address [address] [place] [place] [address] Care Team Providers Care Unionmelt Operator Name Role Phone Donna Lamas MD Primary Care Provider Unavailab Rosa Isela Brown PA-C Unavailable Rosa Isela Mae PA-C Unavailable Wilma Carrasco MD Unavailable Lynn Ho MD Unavailable Marcia Bridges APRN DINING ROOM COORDINATOR Unavailable [phone] Allergies Active Allergy Reactions Criticality Noted Date Comments Indomethacin GI Disturbance High 11/27/2024 Medications acetaminophen (TYLENOL) 325 MG tabletIndicati ons:Malignant neoplasm of upper-inner quadrant of right breast in female, estrogen receptor positive (H) Take 2 tablets (650 mg) by mouth every 4 hours as needed for mild pain. 50 tablet 5 Active senna-docusate (SENOKOT-S/PER ICOLACE) 8.6-50 MG tabletIndicati ons:Malignant neoplasm of upper-inner quadrant of right breast in female, estrogen receptor positive (H) Take 1-2 tablets by mouth 2 times daily. 30 tablet 5 01/16/20 25 Discontinued (Therapy completed (No AVS)) oxyCODONE (ROXICODONE) 5 MG tabletIndicati ons:Malignant neoplasm of upper-inner quadrant of right breast in female, estrogen receptor positive (H) Take 1-2 tablets (5-10 mg) by mouth every 4 hours as needed for moderate to severe pain. 10 tablet 01/16/20 25 Discontinued (Therapy completed (No AVS)) Active Problems Problem Noted Date Diagnosed Date Malignant neoplasm of upper- inner quadrant of right breast in female, estrogen receptor positive 11/27/2024 Cancer Staging:Clinical:Stage IA(cT1c, cN0(f), cM0, G2, ER+, CT+, HER2-) - Signed by Lynn Ho MD on 11/27/2024 Encounters Date Type Department Care Team Description 01/21/2025 2:00 PM CDT Oncology Visit [facility] [place] [address] [facility] [place] [phone] Wilma Carrasco MD Pulmonary nodules (Primary Dx); Malignant neoplasm of right breast in female, estrogen receptor positive, unspecified site of breast (H); Postmenopausal bone loss; Malignant neoplasm of upper-inner quadrant of right breast in female, estrogen receptor positive (H) 01/21/2025 Travel 01/21/2025 PRE VISIT [facility] [address] [place] [address] Wilma Carrasco MD *-*INCOMING RECORDS*-* (Breast cancer (H) [C50.919]) 01/15/2025 1:00 PM CDT Office Visit [facility] [place] [address], [address] [place] [address] Lynn Ho MD Breast cancer, stage 1, estrogen receptor positive, right (H) (Primary Dx) 01/15/2025 Travel 01/03/2025 Orders Only [facility] [address], [address] [place] [address] Lynn Ho MD Breast cancer, stage 1, estrogen receptor positive, right (H) (Primary Dx) 01/03/2025 Results Follow-Up [facility] - Surgical Specialties Service Line [facility] [place] [address] Lynn Ho MD 01/01/2025 Telephone [facility] [place] [address] [place] [address] Lynn Ho MD Surgical Followup (S/p Right breast radiofrequency tag localized lumpectom right axillary sentinel lymph node biopsy 12/31/24. 1st refill.//) 12/31/2024 7:40 AM CDT - 12/31/2024 10:[address] [facility]Op [facility] [address] [place] [address] Lynn Ho MD LUMPECTOMY, BREAST, LOCALIZED USING RADIOFREQUENCY IDENTIFICATION,RIGHT SENTINEL LYMPH NODE BIOPSY 12/31/2024 7:33 AM CDT An[address]hesia Event [facility] [address] [place] [address] Kateryna, MD Kyle Allen Tracy M, RECORD CENTER SPECIALIST DEGREE CLERK 12/31/2024 6:27 AM CDT - 12/31/2024 11:59 PM CDT Hospital Encounter [facility] [address], [address] [place] [address] Lynn Ho MD Breast cancer, stage 1, estrogen receptor positive, right (H) Discharge Disposition: Home or Self Care 12/31/2024 6:20 AM CDT - 12/31/2024 6:26 AM CDT Hospital Encounter [facility] Hospital Imaging [address] [place] [address] Lynn Ho MD Breast cancer, stage 1, estrogen receptor positive, right (H) Discharge Disposition: Home or Self Care 12/31/2024 5:29 AM CDT - 12/31/2024 12:34 PM CDT Hospital Encounter [facility] PreOP/PostOP [address] [place] [address] Lynn Ho MD Malignant neoplasm of upper-inner quadrant of right breast in female, estrogen receptor positive (H) (Primary Dx) Discharge Disposition: Home or Self Care 12/30/2024 9:59 AM CDT - 12/30/2024 11:59 PM CDT Hospital Encounter [facility] [address], [address] [place] [address] Lynn Ho MD Breast cancer, stage 1, estrogen receptor positive, right (H) Discharge Disposition: Home or Self Care 12/30/2024 9:58 AM CDT Hospital Encounter [facility] [address], [address] [place] [address] Lynn Ho MD Breast cancer, stage 1, estrogen receptor positive, right (H) Discharge Disposition: Home or Self Care 12/30/2024 Travel 12/27/2024 11:46 AM CDT - 12/27/2024 11:59 PM CDT Hospital Encounter [facility] [address] [place] [address] Lynn Ho MD Pulmonary nodules Discharge Disposition: Home or Self Care 12/27/2024 Telephone [facility] [address], [address] [place] [address] Lynn Ho MD 12/27/2024 Travel 12/16/2024 4:30 PM CDT Office Visit [facility] [address] [place] [address] Marcia Bridges APRN DINING ROOM COORDINATOR Preop general physical exam (Primary Dx); Malignant neoplasm of upper-inner quadrant of right breast in female, estrogen receptor positive (H); Cervical cancer screening; Screening for diabetes mellitus; Screen for colon cancer; Screening for HIV (human immunodeficiency virus); Need for hepatitis C screening test; Screening for cardiovascular condition 12/16/2024 Travel 12/12/2024 Telephone [facility] [address] [place] [address] Lynn Ho MD 12/11/2024 2:31 PM CDT - 12/11/2024 11:59 PM CDT Hospital Encounter [facility] [address] [place] [phone] Lynn Ho MD Breast cancer, stage 1, estrogen receptor positive, right (H) Discharge Disposition: Home or Self Care 12/11/2024 Orders Only [facility] [address] [place] [address] Lynn Ho MD Pulmonary nodules (Primary Dx) 12/11/2024 Travel 11/29/2024 7:30 AM CDT Tumor Conference [facility] Tumor Conference Virtual Scheduling [address] [place] [address] 11/27/2024 2:00 PM CDT Office Visit [facility] [address] [place] [address] Lynn Ho MD Breast cancer, stage 1, estrogen receptor positive, right (H) (Primary Dx); Malignant neoplasm of upper-inner quadrant of right breast in female, estrogen receptor positive (H) 11/27/2024 Telephone [facility] [address] [place] [address] Lynn Ho MD Schedule Surgery 11/27/2024 Travel 11/25/2024 Orders Only [facility] [address] [place] [address] Raina James RN Breast cancer (H) (Primary Dx) 11/25/2024 Telephone [facility] [address] [place] [address] Raina James RN Breast Biopsy Results 11/22/2024 8:58 AM CDT - 11/22/2024 11:59 PM CDT Hospital Encounter [facility] [address] [place] [address] Rosa Isela Mae PA-C Abnormal ultrasound of breast Discharge Disposition: Home or Self Care 11/22/2024 8:58 AM CDT - 11/22/2024 11:59 PM CDT Hospital Encounter [facility] [address] [place] [address] Rosa Isela Mae PA-C Mass of upper outer quadrant of right breast; Abnormal ultrasound of breast Discharge Disposition: Home or Self Care 11/22/2024 8:56 AM CDT - 11/22/2024 8:57 AM CDT Hospital Encounter [facility] [address] [place] [address] Rosa Isela Mae PA-C Abnormal ultrasound of breast Discharge Disposition: Home or Self Care 11/22/2024 Travel 11/13/2024 1:00 PM CDT - 11/13/2024 11:59 PM CDT Hospital Encounter [facility] [address] [place] [address] Rosa Isela Mae PA-C Mass of upper outer quadrant of right breast Discharge Disposition: Home or Self Care 11/13/2024 12:59 PM CDT Hospital Encounter [facility] [address] [place] [address] Rosa Isela Mae PA-C Mass of upper outer quadrant of right breast Discharge Disposition: Home or Self Care 11/13/2024 Travel from Last 3 Months Immunizations Immunization Administration Dates Next Due TDAP (Adacel,Boostrix) 01/23/2012 Td (Adult), Adsorbed 03/13/2003 Family History Medical History Relation Comments Ovarian Cancer Mother Breast Cancer No family hx of Relation Status Comments Mother Social History Tobacco Use Types Packs/Day Years [...] in an abandoned building, in an overnight snf, or couch-surfing.) Yes 12/16/2024 Are you worried [...] on file 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 Gender Identity Not on file Sexual Orientation Not on file Last Filed Vital Signs Vital Sign Reading [...] Mass Index 20.77 01/21/2025 1:38 PM CDT Plan of Treatment Upcoming Encounters Date Type Department Care Team (Late st Contact Info) Description 03/20/2025 2:30 PM CDT Ancillary Procedure [address] [place] [address] Wilma Carrasco MD [address] [place] [address] Health Maintenance Due Date Last Done Comments ANNUAL REVIEW OF HM ORDERS 1966 CT COLONOGRAPHY 1966 DIABETES SCREENING 1966 FIT 1966 FLEX SIG 1966 NICOTINE/TOBACCO CESSATION COUNSELING Q 1 YR 1966 sDNA (Cologuard) 1966 YEARLY PREVENTIVE VISIT 1969 COLONOSCOPY 1976 COLORECTAL CANCER SCREENING 1976 HIV SCREENING 1981 HEPATITIS C SCREENING 1984 HEPATITIS B VACCINE (1 of 3 - 19+ 3-dose series) 1985 PNEUMOCOCCAL VACCINE 50+ YEARS (1 of 2 - PCV) 1985 LIPID 2006 ZOSTER VACCINE (1 of 2) 2016 DTAP/TDAP/TD VACCINE (2 - Td or Tdap) 01/22/2022 01/23/2012, 03/13/2003 PAP 01/27/2023 01/28/2020, 01/28/2020 COVID-19 VACCINE (3 - 2023-2 5 season) 2024 05/01/2021, 04/03/2021 INFLUENZA VACCINE (Season Ended) 2025 MAMMO SCREENING 11/13/2025 11/13/2024, 01/27/2012 LUNG CANCER SCREENING 12/27/2025 12/27/2024 ADVANCE CARE PLANNING 12/16/2029 12/16/2024 PHQ-2 (once per calendar year) Completed 12/16/2024 HPV VACCINE Aged Out No longer eligi ble based on patient's age to complete this topic MENINGITIS VACCINE Aged Out No longer eligible based on patient's age to complete this topic Procedures Procedure Name Priority Date/Time Associated Diagnosis Comments MA BREAST SPECIMEN RIGHT OR Routine 12/31/2024 9:34 AM CDT Breast cancer, stage 1, estrogen receptor positive, right (H) ONCOTYPEDX BREAST STAT 12/31/2024 8:1 2 AM CDT SURGICAL PATHOLOGY EXAM STAT 01/01/20 8:12 AM CDT ANE AIRWAY SUPRAGLOTTIC PERFORMABLE Routine 12/31/2024 7:47 AM CDT MASTECTOMY, PARTIAL 12/31/2024 7 :33 AM CDT Breast cancer, stage 1, estrogen receptor positive, right (H) Special Needs 120mins per terrence NM LYMPHOSCINTIGRAPHY INJECTION ONLY Routine 12/31/2024 6:50 AM CDT Breast cancer, stage 1, estrogen receptor positive, right (H) GENETIC LAB RESULT - HIM SCAN 12/31/2024 12:00 AM CDT MA POST PROCEDURE RIGHT Routine 12/31/19 10:48 AM CDT Breast cancer, stage 1, estrogen receptor positive, right (H) US BREAST LOCALIZER PLACEMENT 1ST LESION RIGHT Routine 12/30/2024 10:41 AM CDT Breast cancer, stage 1, estrogen receptor positive, right (H) CT CHEST W/O CONTRAST STAT 12/27/2024 12:04 PM CDT Pulmonary nodules CBC WITH PLATELETS Routine 12/16/2024 4: 39 PM CDT Malignant neoplasm of upper-inner quadrant of right breast in female, estrogen receptor positive (H) EKG 12-LEAD COMPLETE W/READ - CLINICS Routine 12/16/2024 4:14 PM CDT Malignant neoplasm of upper-inner quadrant of right breast in female, estrogen receptor positive (H) MR BREAST BILATERAL W/O & W CONTRAST STAT 12/11/2024 3:24 PM CDT Breast cancer, stage 1, estrogen receptor positive, right (H) MA POST PROCEDURE RIGHT Routine 11/23/19 10:04 AM CDT Abnormal ultrasound of breast US BREAST BIOPSY CORE LYMPH NODE RIGHT Routine 11/22/2024 10:02 AM CDT Abnormal ultrasound of breast US BREAST BIOPSY CORE NEEDLE RIGHT Routine 11/22/2024 9:56 AM CDT Mass of upper outer quadrant of right breast Abnormal ultrasound of breast SURGICAL PATHOLOGY EXAM Routine 11/23/19 9:48 AM CDT Mass of upper outer quadrant of right breast Abnormal ultrasound of breast US BREAST RIGHT LIMITED 1-3 QUADRANTS Routine 11/13/2024 2:17 PM CDT Mass of upper outer quadrant of right breast MA DIAGNOSTIC BILATERAL W/ JOSE Routine 11/13/2024 1:31 PM CDT Mass of upper outer quadrant of right breast from Last 3 Months Results * MA Breast Specimen Right OR (12/31/2024 9:34 AM CDT) Narrative [facility] - 12/31/2024 9:34 AM CDT This exam was marked as non-reportable because it will not be read by a radiologist or a [facility] non-radiologist provider. us Lynn Ho MD IMG MAMMOGRAPHY ORDERABLES Fi nal Result [facility] * OncotypeDx Breast (12/31/2024 8:12 AM CDT) Specimen Status See Scanned Result 01/17/2025 9:00 AM CDT [employer] Lumpectomy RIGHT BREAST STRUCTURE / Unknown 12/31/2024 8:12 AM CDT 01/08/2025 4:17 PM CDT us Lynn Ho MD LAB - VAMSHI MERRILL Final Result [employer] [address] [place] [address], [facility] [place] [phone] * (ABNORMAL) Surgical Pathology Exam (12/31/2024 8:12 AM CDT) Only the most recent of2 resultswithin the time period is included. Case Report Surgical Pathology Report Case: [id number] Authorizing Provider: Lynn Ho MD Collected: 12/31/2024 08:12 AM Ordering Location: [facility] Received: 12/31/2024 08:21 AM Main OR Pathologist: Sanam Mccray MD Intraop: Leda Rogers MD Specimens: A) - Breast, Right, RIGHT BREAST LUMPECTOMY B) - Lymph Node(s), [place], Right sentinel lymph node #1 & #2 C) - Lymph Node(s), [place], Right sentinel lymph node #3 D) - [...] of no special type (ductal) Histologic Grade (Blanch Histologic Score): Glandular (Acinar) / Tubular Differentiation: [...] Examined (sentinel and non-sentinel): 6 Number of [place] Nodes Examined: 6 pTNM CLASSIFICATION (AJCC 8th [...] Anterior Black - Posterior Yellow - Medial [place] - Lateral The specimen is sectioned from [...] representatively sampled as follows (reference specimen diagragm): A1-personnel representative sections of slice 1, lateral end-perpendicular sections A2-A4-slice 2, trisected A5-personnel representative section of slice 3 to include mass A6-A8-slice 4 to include mass, trisected R9-S42-iqvzr 5 to include mass, quadrisected S94-K56-jphcp 6 to include mass, trisected F14-J27-cxemrcfvky tive sections of slice 7 P86-zvzyjgdkqunkcp section of slice 8 A19- personnel representative sections of slice 10, medial end - perpendicular sections Per EPIC, the radiographic findings are as follows: Imaging reviewed: MRI/Ultrasound Findings: right breast, 3 o'clock position, 4 cm from nipple, 2.0 cm size Expected Clip/Marker: Coil shaped clip Time collected: 811 Time in formalin: 34 B(2). Lymph Node(s), [place], Right sentinel lymph node #1 & #2: [...] pathology lab at 924) C(3). Lymph Node(s), [place], Right sentinel lymph node #3: The specimen [...] submitted entirely and sequentially in 5 cassettes. [place]-new margin aspect of specimen (inked by surgeon) Black-opposing aspect of specimen (inked by Grosser) Time collected: 0848 Time in formalin: 0925 (GM Beth (ASCP) 12/31/2024 9:41 AM 01/02/2025 4:00 PM CDT LABORATORY Microscopic Description Microscopic examination was performed. 01/02/2025 4:00 PM CDT LABORATORY MCRS Yes(A) N/A 01/02/2025 4:00 PM T LABORATORY Performing Labs The technical component of this testing was completed at [facility]. Stain controls for all stains [...] NEW MARGIN us Lynn QUINTANILLA - VAMSHI AP Final Result LABORATORY [facility] [address] 1[address] floor, [address] [place] [address], [place] [phone] RH LABORATORY [facility] [address] [facility] (1st floor, no room number) [place] [address], [facility] [place] * ANE AIRWAY SUPRAGLOTTIC PERFORMABLE (12/31/2024 7:47 AM CDT) Narrative Ashley Wright APRN DEGREE CLERK - 12/31/2024 7:47 AM CDT Ashley Wright APRN DEGREE CLERK 12/31/2024 7:47 AM Airway Patient location during procedure: OR Staff - Performed By: KANDYIndications and Patient Condition Indications for airway management: jonathan-procedural Final Airway Details Final airway type: supraglottic airway Supraglottic Airway Details Type: LMA Brand: I-Gel LMA size: 4 Post intubation assessment Ease of procedure: easy us Lizz Avendaño MD CT ANESTHESIA Final Res ult * NM Lymphoscintigraphy Injection only (12/31/2024 6:50 [...] as part of the localization procedure. WASHINGTON ASCENCIO MD Procedure Note Washington Ascencio MD - 12/31/2024 Examination: NM LYMPHOSCINTIGRAPHY INJECTION ONLY, 12/31/2024 6:50 AM Indication: Breast cancer, stage 1, estrogen receptor positive, right (H); Breast cancer, stage 1, estrogen receptor positive, right (H) Technique: 540 uci of Tc-99m Lymphoseek (r) was injected. Images were not obtained as part of the localization procedure. WASHINGTON ASCENCIO MD us Lynn Ho MD IMG NM ORDERABLES Final Resul t * Genetic Lab Result - HIM Scan (12/31/2024 12:00 AM CDT) 12/31/2024 us Provider Outside LAB - [facility] SPECIAL DIAG ORDER LOPEZ Final Result * MA Post Procedure Right (12/30/2024 10:48 AM CDT) Only the most recent of2 resultswithin the time period is included. Anatomical Region Laterality Modality Breast Right Mammography Impressions 12/30/2024 10:50 AM CDT IMPRESSION: Successful placement of a localizer for operative guidance. MOY ZACARIAS MD Narrative 12/30/2024 10:50 AM CDT [...] and provided to the surgeon. Localizer ID: [id number] Procedure Note Moy Zacarias MD - 12/30/2024 RIGHT BREAST LOCALIZER [...] and provided to the surgeon. Localizer ID: [id number] IMPRESSION: Successful placement of a localizer for operative guidance. MOY ZACARIAS MD us Lynn Ho MD IMG MAMMOGRAPHY ORDERABLES Fi nal Result * US Breast Localizer Placement 1st Lesion Right (12/30/2024 10:41 AM CDT) Anatomical Region Laterality Modality Breast Right Ultrasound Impressions 12/30/2024 10:50 AM CDT IMPRESSION: Successful placement of a localizer for operative guidance. MOY ZACARIAS MD Narrative 12/30/2024 10:50 AM CDT [...] and provided to the surgeon. Localizer ID: [id number] Procedure Note Moy Zacarias MD - 12/30/2024 RIGHT BREAST LOCALIZER [...] and provided to the surgeon. Localizer ID: [id number] IMPRESSION: Successful placement of a localizer for operative guidance. MOY ZACARIAS MD us Lynn Ho MD IMG US ORDERABLES Final Resul t * CT Chest w/o Contrast (12/27/2024 12:04 [...] CDT EXAM: CT CHEST W/O CONTRAST LOCATION: [facility] DATE: 12/27/2024 INDICATION: Recently diagnosed right breast [...] 12/27/2024 EXAM: CT CHEST W/O CONTRAST LOCATION: [facility] DATE: 12/27/2024 INDICATION: Recently diagnosed right breast [...] MD IMG CT ORDERABLES Final Resul t * CBC with platelets (12/16/2024 4:39 PM CDT) WBC Count 9.4 4.0 - 11.0 10e3/uL 12/16/2024 4:41 PM CDT [facility] RBC Count 4.89 3.80 - 5.20 10e6/uL 12/16/2024 4:41 PM CDT [facility] Hemoglobin 15.3 11.7 - 15.7 g/dL 12/16/2024 4:41 PM CDT [facility] Hematocrit 43.6 35.0 - 47.0 % 12/16/2024 4:41 PM CDT [facility] MCV 89 78 - 100 fL 12/16/2024 4:41 PM CDT [facility] MCH 31.3 26.5 - 33.0 pg 12/16/2024 4:41 PM CDT [facility] MCHC 35.1 31.5 - 36.5 g/dL 12/16/2024 4:41 PM CDT [facility] RDW 12.4 10.0 - 15.0 % 12/16/2024 4:41 PM CDT [facility] Platelet Count 188 150 - 450 10e3/uL 12/16/2024 4:41 PM CDT [facility] Blood BLOOD SPECIMEN / Unknown Venipuncture / Unknown 12/16/2024 4:39 PM CDT 12/16/2024 4:39 PM CDT Marcia Bridges APRN [facility] - BLOOD ORDERABLES Final Result [place] LABORATORY [facility] [place] [facility] [address] [facility], [address] [place] [address] * EKG 12-lead complete w/read - Clinics (12/16/2024 4:14 PM CDT) Marcia Bridges APRN DINING ROOM COORDINATOR ECG ORDERABLES Final Result * MR Breast Bilateral w/o & w Contrast (12/11/2024 3:24 PM CDT) Anatomical Region Laterality Modality Breast, SUBRAD BREAST, UMP BREAST, RAD MR Bilate ral Magnetic Resonance Impressions 12/11/2024 3:58 PM CDT IMPRESSION: 1. Enhancing mass at the 3:00 position of the right breast corresponds to biopsy-proven malignancy and measures 1.9 x 1.3 x 1.5 cm. 2. No other suspicious enhancement in either breast. 3. Enlarged right internal mammary and paracardiac lymph nodes, as above. No evidence of axillary adenopathy. 4. Right middle lobe pulmonary nodule measuring 0.9 cm. Further evaluation with chest CT recommended. RIGHT BREAST: BI-RADS CATEGORY: 6 - Known Biopsy-Proven Malignancy. LEFT BREAST: BI-RADS CATEGORY: 1 - Negative. RECOMMENDED FOLLOW-UP: Clinical Follow-up. SURINDER PINA MD Narrative 12/11/2024 3:58 PM CDT MRI BREASTS, BILATERAL, ENHANCED - 12/11/2024 HISTORY: Recently diagnosed right breast invasive ductal carcinoma based on core biopsy of a lesion at the 3:00 position, 4 cm from the nipple. COMPARISON: Bilateral diagnostic mammogram and right breast ultrasound, 11/13/2024 TECHNIQUE: Both breasts were simultaneously evaluated using dedicated breast coil. Axial T2, axial STIR, axial T1 before and at two-minute intervals out to eight minutes following 6 mL Gadavist administration and sagittal postcontrast images were performed, as well as subtraction, CAD and angio mapping. FINDINGS: Right Breast: Breast Density: Heterogeneously dense. Background parenchymal enhancement: Moderate Enhancing mass at the 3:00 position corresponds to biopsy-proven malignancy and measures 1.9 x 1.3 x 1.5 cm. The marking clip from core biopsy is within the enhancing mass. No other suspicious right breast enhancement. Right internal mammary lymph node with short axis of 0.3 cm (image 90, series 8). Paracardiac lymph node with short axis of 0.6 cm (image 111, series 8). Left Breast: Breast Density: Heterogeneously dense. Background parenchymal enhancement: Moderate There is no suspicious enhancement to suggest malignancy. No adenopathy. Other findings: Right middle lobe pulmonary nodule measuring 0.9 cm (image 93, series 8). Procedure Note Surinder Pina MD - 12/11/2024 MRI BREASTS, BILATERAL, ENHANCED - 12/11/2024 HISTORY: Recently diagnosed right breast invasive ductal carcinoma based on core biopsy of a lesion at the 3:00 position, 4 cm from the nipple. COMPARISON: Bilateral diagnostic mammogram and right breast ultrasound, 11/13/2024 TECHNIQUE: Both breasts were simultaneously evaluated using dedicated breast coil. Axial T2, axial STIR, axial T1 before and at two-minute intervals out to eight minutes following 6 mL Gadavist administration and sagittal postcontrast images were performed, as well as subtraction, CAD and angio mapping. FINDINGS: Right Breast: Breast Density: Heterogeneously dense. Background parenchymal enhancement: Moderate Enhancing mass at the 3:00 position corresponds to biopsy-proven malignancy and measures 1.9 x 1.3 x 1.5 cm. The marking clip from core biopsy is within the enhancing mass. No other suspicious right breast enhancement. Right internal mammary lymph node with short axis of 0.3 cm (image 90, series 8). Paracardiac lymph node with short axis of 0.6 cm (image 111, series 8). Left Breast: Breast Density: Heterogeneously dense. Background parenchymal enhancement: Moderate There is no suspicious enhancement to suggest malignancy. No adenopathy. Other findings: Right middle lobe pulmonary nodule measuring 0.9 cm (image 93, series 8). IMPRESSION: 1. Enhancing mass at the 3:00 position of the right breast corresponds to biopsy-proven malignancy and measures 1.9 x 1.3 x 1.5 cm. 2. No other suspicious enhancement in either breast. 3. Enlarged right internal mammary and paracardiac lymph nodes, as above. No evidence of axillary adenopathy. 4. Right middle lobe pulmonary nodule measuring 0.9 cm. Further evaluation with chest CT recommended. RIGHT BREAST: BI-RADS CATEGORY: 6 - Known Biopsy-Proven Malignancy. LEFT BREAST: BI-RADS CATEGORY: 1 - Negative. RECOMMENDED FOLLOW-UP: Clinical Follow-up. SURINDER PINA MD us Lynn Ho MD IMG MRI ORDERABLES Final Resu lt * US Breast Biopsy Core Lymph Node Right (11/22/2024 10:02 AM CDT) Anatomical Region Laterality Modality Breast Right Ultrasound Addenda Addendum by Washington Ascencio MD on 11/26/2024 9:06 AM CDT Pathology: Breast: Invasive ductal carcinoma with micropapillary features Axilla: Benign lymph node Concordance: Concordant at both sites Recommendation: Surgical and oncologic consultation WASHINGTON ASCENCIO MD Impressions 11/22/2024 11:42 AM CDT IMPRESSION: Successful ultrasound-guided core biopsies. Final pathology is pending. WASHINGTON ASCENCIO MD Narrative 11/22/2024 11:42 AM CDT ULTRASOUND-GUIDED RIGHT BREAST BIOPSY; ULTRASOUND-GUIDED RIGHT AXILLARY BIOPSY CLIP PLACEMENT; POSTPROCEDURE DIGITAL MAMMOGRAM; 11/22/2024 11:41 AM INDICATION FOR PROCEDURE: Breast mass and axillary node PROCEDURE: Target: Hypoechoic mass at 3:00 4 cm from the nipple Clip: T3 Proximity of clip to target: On target Number of samples: 3 Target: Noted with borderline cortical thickening in the axilla Clip: Hydromark T4 Proximity of clip to target: On target Number of samples: 2 Written informed consent was obtained from the patient prior to the procedure. The risks and benefits were discussed. Lidocaine was infiltrated for local anesthetic at each site. Samples were obtained with a 14-gauge core-cutting needle via a 13 gauge introducer at each site. A clip was then deployed to itzel the lesion at each site. Postbiopsy unilateral digital mammogram was obtained. The patient tolerated the procedure without difficulty and there was no immediate complication. Less than 5cc blood loss. No pain following biopsy. Procedure Note Washington Ascencio MD - 11/22/2024 ULTRASOUND-GUIDED RIGHT BREAST BIOPSY; ULTRASOUND-GUIDED RIGHT AXILLARY BIOPSY CLIP PLACEMENT; POSTPROCEDURE DIGITAL MAMMOGRAM; 11/22/2024 11:41 AM INDICATION FOR PROCEDURE: Breast mass and axillary node PROCEDURE: Target: Hypoechoic mass at 3:00 4 cm from the nipple Clip: T3 Proximity of clip to target: On target Number of samples: 3 Target: Noted with borderline cortical thickening in the axilla Clip: Hydromark T4 Proximity of clip to target: On target Number of samples: 2 Written informed consent was obtained from the patient prior to the procedure. The risks and benefits were discussed. Lidocaine was infiltrated for local anesthetic at each site. Samples were obtained with a 14-gauge core-cutting needle via a 13 gauge introducer at each site. A clip was then deployed to itzel the lesion at each site. Postbiopsy unilateral digital mammogram was obtained. The patient tolerated the procedure without difficulty and there was no immediate complication. Less than 5cc blood loss. No pain following biopsy. IMPRESSION: Successful ultrasound-guided core biopsies. Final pathology is pending. 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 Final pathology is pending. WASHINGTON ASCENCIO MD Narrative 11/22/2024 11:42 AM CDT ULTRASOUND-GUIDED RIGHT BREAST BIOPSY; ULTRASOUND-GUIDED RIGHT AXILLARY BIOPSY CLIP PLACEMENT; POSTPROCEDURE DIGITAL MAMMOGRAM; 11/22/2024 11:41 AM INDICATION FOR PROCEDURE: Breast mass and axillary node PROCEDURE: Target: Hypoechoic mass at 3:00 4 cm from the nipple Clip: T3 Proximity of clip to target: On target Number of samples: 3 Target: Noted with borderline cortical thickening in the axilla Clip: Hydromark T4 Proximity of clip to target: On target Number of samples: 2 Written informed consent was obtained from the patient prior to the procedure. The risks and benefits were discussed. Lidocaine was infiltrated for local anesthetic at each site. Samples were obtained with a 14-gauge core-cutting needle via a 13 gauge introducer at each site. A clip was then deployed to itzel the lesion at each site. Postbiopsy unilateral digital mammogram was obtained. The patient tolerated the procedure without difficulty and there was no immediate complication. Less than 5cc blood loss. No pain following biopsy. Procedure Note Washington Ascencio MD - 11/22/2024 ULTRASOUND-GUIDED RIGHT BREAST BIOPSY; ULTRASOUND-GUIDED RIGHT AXILLARY BIOPSY CLIP PLACEMENT; POSTPROCEDURE DIGITAL MAMMOGRAM; 11/22/2024 11:41 AM INDICATION FOR PROCEDURE: Breast mass and axillary node PROCEDURE: Target: Hypoechoic mass at 3:00 4 cm from the nipple Clip: T3 Proximity of clip to target: On target Number of samples: 3 Target: Noted with borderline cortical thickening in the axilla Clip: Hydromark T4 Proximity of clip to target: On target Number of samples: 2 Written informed consent was obtained from the patient prior to the procedure. The risks and benefits were discussed. Lidocaine was infiltrated for local anesthetic at each site. Samples were obtained with a 14-gauge core-cutting needle via a 13 gauge introducer at each site. A clip was then deployed to itzel the lesion at each site. Postbiopsy unilateral digital mammogram was obtained. The patient tolerated the procedure without difficulty and there was no immediate complication. Less than 5cc blood loss. No pain following biopsy. IMPRESSION: Successful ultrasound-guided core biopsies. Final pathology is pending. WASHINGTON ASCENCIO MD us Rosa Isela Mae PA-C IMG US ORDERABLES Edited Result - Final * (ABNORMAL) US Breast Right Limited 1-3 Quadrants (11/13/2024 2:17 PM CDT) Anatomical Region Laterality Modality Breast Right Ultrasound Impressions 11/13/2024 2:23 PM CDT IMPRESSION: BI-RADS CATEGORY: 4 - Suspicious. RECOMMENDED FOLLOW-UP: Biopsy. Ultrasound-guided core needle biopsy of RIGHT breast mass as well as RIGHT axillary lymph node. GURPREET DOBSON MD Narrative 11/13/2024 2:23 PM CDT EXAM: MA DIAGNOSTIC BILATERAL W/ JOSE, US BREAST RIGHT LIMITED 1-3 QUADRANTS, 11/13/2024 1:31 PM COMPARISONS: 01/27/2012 HISTORY: Lump in the RIGHT breast for the past few months. BREAST DENSITY: The breasts are heterogeneously dense, which may obscure small masses. FINDINGS: Bilateral mammography with digital breast tomosynthesis performed with a triangle shaped marker medially on the RIGHT at the patient's palpable area of concern. Irregularly-shaped mass is seen underlying the marker. No concerning mammographic/tomographic findings in the LEFT breast. Focussed ultrasound by radiologist and technologist of the medial RIGHT breast was performed. Irregularly-shaped hypoechoic mass with indistinct margins is seen at 3:00 4 cm from the nipple on the RIGHT. This measures 1.3 x 1.2 x 2.0 cm and accounts for the mammographic finding as well as a palpable area of concern. RIGHT axillary ultrasound survey demonstrates multiple normal-appearing lymph nodes as well as one lymph node with mild cortical thickening. us Rosa Isela Mae PA-C [facility] US ORDERABLES Edited * (ABNORMAL) MA Diagnostic Bilateral w/ Jose (11/13/2024 1:31 PM CDT) Anatomical Region Laterality Modality Breast Bilateral Mammography Impressions 11/13/2024 2:23 PM CDT IMPRESSION: BI-RADS CATEGORY: 4 - Suspicious. RECOMMENDED FOLLOW-UP: Biopsy. Ultrasound-guided core needle biopsy of RIGHT breast mass as well as RIGHT axillary lymph node. GURPREET DOBSON MD Narrative 11/13/2024 2:23 PM CDT EXAM: MA DIAGNOSTIC BILATERAL W/ JOSE, US BREAST RIGHT LIMITED 1-3 QUADRANTS, 11/13/2024 1:31 PM COMPARISONS: 01/27/2012 HISTORY: Lump in the RIGHT breast for the past few months. BREAST DENSITY: The breasts are heterogeneously dense, which may obscure small masses. FINDINGS: Bilateral mammography with digital breast tomosynthesis performed with a triangle shaped marker medially on the RIGHT at the patient's palpable area of concern. Irregularly-shaped mass is seen underlying the marker. No concerning mammographic/tomographic findings in the LEFT breast. Focussed ultrasound by radiologist and technologist of the medial RIGHT breast was performed. Irregularly-shaped hypoechoic mass with indistinct margins is seen at 3:00 4 cm from the nipple on the RIGHT. This measures 1.3 x 1.2 x 2.0 cm and accounts for the mammographic finding as well as a palpable area of concern. RIGHT axillary ultrasound survey demonstrates multiple normal-appearing lymph nodes as well as one lymph node with mild cortical thickening. Rosa Isela Mae PA-C [facility] MAMMOGRAPHY ORDERABL ES Final Result from Last 3 Months Insurance [facility] INDIVIDUAL OTHER Care Teams Unionmelt Operator Relationship Specialty Start Date End Date Donna Lamas MD PCP - General Family Practice 01/25/12 Rosa Isela Mae PA-C [address] [facility] [address] [place], [place] [address] Physician Visual Design Lead high school librarian 10/28/24 Rosa Isela Mae PA-C [address] [facility] [address] [place], [place] [address] Assigned OBGYN Provider 11/10/24 Wilma Carrasco MD [address] [place], [place] [address] Physician Hematology & Oncology 11/27/24 Lynn Ho MD [facility] [place] [address] Assigned Surgical Provider 12/11/24 Marcia Bridges APRN [facility] [address] [place] [address] Assigned PCP 01/10/25
--- OUTSIDE RECORDS SUMMARY | 2025-02-08 00:25 | XMS_ITS | Encounter Summary ---
Author Organization [place] Address [address] [place] [address] Care Team Providers Care Lead Assistant Manager Name Role Phone Donna Lamas MD Primary Care Provider Unavailab Rosa Isela Brown PA-C Unavailable Rsoa Isela Mae PA-C Unavailable Wilma Carrasco MD Unavailable Lynn Ho MD Unavailable [phone] Encounter Details Date Type Department Care Team (Late st Contact Info) Description 01/03/2025 Orders Only [facility] [place] [address] [facility] [address] [place] [address] Lynn Ho MD [address] [place] [address] Breast cancer, stage 1, estrogen [...] in an abandoned building, in an overnight detention, or couch-surfing.) Yes 12/16/2024 Are you worried [...] on file 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 Gender Identity Not on file Sexual Orientation Not on file documented as of this encounter Plan of Treatment Upcoming Encounters Date Type Department Care Team (Late st Contact Info) Description 03/20/2025 2:30 PM CDT Ancillary Procedure [address] [place] [address] Wilma Carrasco MD [address] [place], [place] [address] Scheduled Orders Name Type Priority Associated Diagnoses Orde r Schedule OncotypeDx Breast Pathology and Cytology Routine Breast cancer, stage 1, estrogen receptor positive, right (H) Expected: 01/03/2025 (Approximate), Expires: 07/06/2025 documented as of this encounter Visit Diagnoses Diagnosis Breast cancer, stage 1, estrogen receptor positive, right (H)- Primary documented in this encounter Care Teams Lead Assistant Manager Relationship Specialty Start Date End Date Donna Lamas MD PCP - General Family Practice 01/25/12 Rosa Isela Mae PA-C [address] [address] Physician Curb Setter Helper curb setter helper 10/28/24 Rosa Isela Mae PA-C [address] [address] Assigned OBGYN Provider 11/10/24 Wilma Carrasco MD [address] [place], [place] [address] Physician Hematology & Oncology 11/27/24 Lynn Ho MD [facility] [address] [place], [place] [id number] Assigned Surgical Provider 12/11/24 documented as of this encounter
--- OUTSIDE RECORDS SUMMARY | 2025-02-08 00:25 | XMS_ITS | Encounter Summary ---
Author Organization [place] Address [address] [facility] 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 Gender Identity Not on file Sexual Orientation Not on file documented as of this encounter Plan of Treatment Upcoming Encounters Date Type Department Care Team (Late st Contact Info) Description 03/20/2025 2:30 PM CDT Ancillary Procedure [address] [place] [address] Wilma Carrasco MD [address] [place] [phone] documented as of this encounter Visit Diagnoses Not on filedocumented in this encounter Care Teams Software Engineering Specialist Relationship Specialty Start Date End Date Donna Lamas MD PCP - General Family Practice 01/25/12 Rosa Isela Mae PA-C [address] [facility] [address] [place] [address] Physician Painter Bottom senior it engineer 10/28/24 Rosa Isela Mae PA-C [address] [facility] [address] [place] [address] Assigned OBGYN Provider 11/10/24 Wilma Carrasco MD [address] [place], [place] [address] Physician Hematology & Oncology 11/27/24 Lynn Ho MD [address] [place], [place] [id number] Assigned Surgical Provider 12/11/24 Marcia Bridges APRN [facility] [address] [place] [address] Assigned PCP 01/10/25 documented as of this encounter
--- OUTSIDE RECORDS SUMMARY | 2025-02-08 00:26 | XMS_ITS | Encounter Summary ---
Author Organization [place] Address [address] [facility] [place] 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 Gender Identity Not on file Sexual Orientation Not on file documented as of this encounter Plan of Treatment Upcoming Encounters Date Type Department Care Team (Late st Contact Info) Description 03/20/2025 2:30 PM CDT Ancillary Procedure [address] [place] [address] Wilma Carrasco MD [address] [place] [phone] documented as of this encounter Visit Diagnoses Not on filedocumented in this encounter Care Teams Inspector [employer] Relationship Specialty Start Date End Date Donna Lamas MD PCP - General Family Practice 01/25/12 Rosa Isela Mae PA-C [address] [facility] [address] [place] [address] Physician Bone Crusher manager of procurement 10/28/24 Rosa Isela Mae PA-C [address] [facility] [address] [place] [address] Assigned OBGYN Provider 11/10/24 Wilma Carrasco MD [address] [place], [place] [address] Physician Hematology & Oncology 11/27/24 [facility] [address] [place], [place] [address] Assigned Surgical Provider 12/11/24 documented as of this encounter
== END 2025-02-07 10:02 | disposition home or self-care (01) ==
LOC: INJ CL 10:02
PROVIDERS: Visit Provider Family Medicine
DX: M54.16 Radiculopathy, lumbar region (principal); M51.369 Other intervertebral disc degeneration, lumbar region without mention of lumbar back pain or lower extremity pain
CPT/HCPCS: 64483; J1100; Q9966

== ENCOUNTER 2025-07-08 09:35 | Outpatient (CLI) | payer BC, SELFPAY | END 2025-07-08 09:36 | disposition home or self-care (01) | LOC: INJ CL 09:35 | PROVIDERS: Visit Provider Family Medicine | DX: M54.16 Radiculopathy, lumbar region (principal); M51.369 Other intervertebral disc degeneration, lumbar region without mention of lumbar back pain or lower extremity pain | CPT/HCPCS: 64483; Q9966 ==